=== PATIENT | male | born 1995 | race Caucasian/White ===

== ENCOUNTER 2024-03-20 15:08 | Emergency (ER) | payer OTHER, SELFPAY ==
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
[2024-03-20 15:10] VITALS: BP 156/83; PULSE 61; RESP 18; TEMP 36.9; O2SAT 100; BMI 26.9
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
[2024-03-20 16:57] VITALS: BP 124/66; PULSE 52; RESP 18; TEMP 36.9; O2SAT 99
[2024-03-20 18:16] VITALS: BP 124/66; PULSE 52; RESP 18; TEMP 36.9; O2SAT 99
== END 2024-03-20 18:16 | disposition home or self-care (01) ==
PROVIDERS: Emergency Provider Emergency Medicine
DX: S20.212A Contusion of left front wall of thorax, initial encounter (principal); Y04.2XXA Assault by strike against or bumped into by another person, initial encounter; Y93.9 Activity, unspecified; Y92.9 Unspecified place or not applicable; Y99.9 Unspecified external cause status
CPT/HCPCS: 71101; 99282; 99283

== ENCOUNTER 2024-11-02 12:48 | Emergency (ER) | payer OTHER, SELFPAY ==
--- NOTE | ~2024-11-02 | CT_ITS ---
CLINICAL HISTORY: painless mass to anterior L neck CT soft tissue neck with contrast Comparison: None Findings: The visualized intracranial contents are unremarkable. No prevertebral fluid. Epiglottis is within normal limits. Pharyngeal mucosal space and parapharyngeal fat are normal. Salivary glands are within normal limits. No sialoliths. Large left thyroid lobe nodule measuring 4.0 x 3.8 x 3.5 cm. Right thyroid gland is within normal limits. No consolidation at the lung apices. No acute fracture or dislocation. IMPRESSION: 1. Large left thyroid nodule measuring 4.0 x 3.8 x 3.5 cm. 2. No acute findings. This document has been electronically signed by: Remedios Romano MD on 11/02/2024 20:54:31
--- NOTE | 2024-11-02 12:58 | ED_ITS ---
HPI - General Adult General Chief complaint: Skin/Abscess/Foreign Body Stated complaint: swelling in neck Time Seen by Provider: 11/02/24 19:11 Source: patient Mode of arrival: ambulatory Limitations: no limitations History of Present Illness ED Provider: TRACIE KNOWLES PA-C HPI narrative: 29 year old male with pmhx significant for depression presents to the ED today for evaluation of mass to left neck x1 week. Patient states that 1 week ago he was shaving when he felt a gold ball sized mass to the lower left neck. Denies any pain. Reports some discomfort with swallowing. Denies difficulty or pain with swallowing. Reports that the mass has somewhat decreased in size however still present, prompting him to come to the ED for further evaluation. Denies fever, chills, sore throat, cough, N/V, shortness of breath, dental pain. Denies any tobacco use or vaping. Denies history of GERD. Satya any recent sick contacts. Patient does admit to history of 3 mm pulmonary nodules a few years ago. He has not followed up regarding this. Related Data Previous Rx's ?Medication ?Instructions ?Recorded naproxen 500 mg tablet 500 mg PO BID PRN pain 7 days #14 03/20/24 tabs Allergies Allergy/AdvReac Type Severity Reaction Status Date / Time No Known Allergies Allergy Verified 11/02/24 13:02 Review of Systems 2 Review of Systems: Constitutional: No fever, chills, fatigue, night sweats, weight changes ENT/Mouth: No ear pain, hearing loss, nasal congestion, sinus pain, rhinorrhea, sore throat Eyes: No eye pain, swelling, redness, vision changes, discharge Cardio: No chest pain, palpitations, BROCK, orthopnea, peripheral edema Pulm: No SOB, cough, sputum, wheezing, dyspnea, hemoptysis GI: No nausea, vomiting, hematemesis, abdominal pain, diarrhea, constipation, hematochezia, melena : No irregular bleeding, dysuria, frequency, urgency, hesitancy, hematuria, flank pain, urinary flow changes, urinary incontinence or retention MSK: No back pain, neck pain, joint pain, myalgias Skin: No lesions, rashes, +neck mass Neuro: No weakness, numbness, paresthesias, LOC, dizziness, headache Psych: No anxiety/panic, depression, SI/HI, AH/VH All other systems reviewed and are negative. [facility] Past Medical History Attestation statement: The following information was validated with the patient. Source: old records reviewed and nursing notes reviewed Physical Exam ED Vital Signs: Vital Signs - 24 hr 11/02/24 12:59 11/02/24 18:41 11/02/24 21:23 Temperature 98.1 F 97.6 F 97.8 F Pulse Rate 79 64 63 Respiratory Rate 18 18 18 Blood Pressure 147/58 H 147/67 H 125/78 Pulse Oximetry 98 98 100 Oxygen Delivery Method Room Air Room Air Room Air 11/02/24 21:23 Temperature 97.8 F Pulse Rate 63 Respiratory Rate 18 Blood Pressure 125/78 Pulse Oximetry 100 Oxygen Delivery Method Room Air BMI result Body Mass Index 27.0 hypertensive General: Well appearing, in no acute distress. Skin: Warm, dry, intact. No rashes or lesions. Head: Normocephalic, atraumatic. EENT: Hearing is intact b/l. Conjunctiva clear. Sclera is anicteric. PERRLA. EOM intact. Moist mucous membranes.? Neck: palpable hard lump to L neck. Nontender. No fluctuance/induration or overlying erythema. Airway patent. Cardiac: Chest wall symmetric. RRR Lungs: Normal respiratory effort without accessory muscle use. CTA bilaterally. Ext: Upper and lower extremities atraumatic, without tenderness, deformity, swelling or erythema Neuro: AOx3. Normal speech. Ambulating with steady gait. Course Course Course Narrative: This is a Rapid Medical Exam performed in triage by Erin Rojas PA-C. Full HPI, ROS and PE to be performed by primary ED provider. 29 yo M presenting to the ED c/o L sided neck swelling x last week - golf ball sized - unchanged. denies SOB, difficulty/inability to swallow, fever PE: +palpable hard lump to L neck. Nontender. No fluctuance/induration or overlying erythema Plan: Labs Reevaluation(s) Reevaluation #1: CBC without leukocytosis or left shift. No anemia. H&H stable. Inflammatory markers WNL. Chemistry without acute electrolyte abnormality requiring intervention. No NANDA. Liver function at baseline. Negative strep and mono. CT soft tissues neck showing large left thyroid nodule measuring 4 x 3.8 x 3.5 cm. No sialolith. No prevertebral fluid. Epiglottis normal. Normal pharyngeal mucosal space and parapharyngeal fat. > discussed workup results with patient. His airways patent. He is asymptomatic. I do not have concern for airway compromise. I recommended follow up with endocrinology v ENT. Stressed the importance of further testing with US outpatient as he may require biopsy v surgical removal. He verbalizes understanding. Referrals provided. He has an appointment with his PCP on the of this month (in 11 days). Advised to keep this appointment. Patient has remained stable throughout ED visit today. Discussed worrisome signs and symptoms and when to return to the ED. All questions answered at this time. Patient is agreeable with disposition and stable for discharge. Medications Administered Discontinued Medications Generic Name Dose Route Start Last Admin Trade Name Freq PRN Reason Stop Dose Admin Iohexol 100 ml 11/02/24 20:04 11/02/24 20:05 Iohexol 350 Mg/Ml 100 Ml Infus..Btl IV 11/02/24 20:05 60 ml ONCE ONE Administration Medical Decision Making Medical Decision Making [facility] Narrative: 29 year old male with pmhx significant for depression presents to the ED today for evaluation of mass to left neck x1 week. Differential diagnosis includes lipoma, soft tissue mass, lymphadenopathy, mono, strep throat, thyroid nodule. Lower suspicion for abscess, folliculitis. Unlikely GLASS CUT OFF TENDER, retropharyngeal abscess. Screening labs and strep swab obtained from triage. Will add on mono spot and CT soft tissues neck to further assess area. He denies any pain at present. Well appearing. Differential Diagnosis Differential Diagnoses: The differential diagnosis associated with the presentation includes as above. Admission/Observation not indicated. Lab Data [facility] Lab Attestation statement: I reviewed the patient's lab results. as above. 11/02/24 13:45 11/02/24 13:45 Labs: Lab Results 11/02/24 11/02/24 Range/Units 13:45 19:45 WBC 5.7 (4.8-10.8) X10*3/uL RBC 5.51 (4.60-5.80) X10*6/uL Hgb 15.6 (14.0-18.0) g/dl Hct 45.1 (42.0-52.0) % MCV 81.9 (80.0-98.0) fL MCH 28.3 (27.0-33.0) pg MCHC 34.6 (31.0-36.0) g/dl RDW 12.0 (11.0-16.0) % Plt Count 233 (160-400) X10*3/uL MPV 9.3 L (9.4-12.4) fL Immature Gran % (Auto) 0.2 (0.0-0.4) % Neut % (Auto) 61.1 (45-73) % Lymph % (Auto) 30.2 (20-40) % [place] % (Auto) 5.5 (2-11) % Eos % (Auto) 2.5 (0-4) % Baso % (Auto) 0.5 (0-2) % Lymph # (Auto) 1.7 (1.2-4.9) X10*3/uL [place] # (Auto) 0.3 (0.1-1.2) X10*3/uL Eos # (Auto) 0.1 (0.0-0.4) X10*3/uL Baso # (Auto) 0.0 (0.0-0.2) X10*3/uL Abs Immat Gran (auto) 0.01 (0.00-0.03) X10*3/uL Absolute Neuts (auto) 3.5 (2.0-8.3) x10*3/uL Absolute Nucleated RBC 0.000 (0.0-0.012) X10*3/uL Nucleated RBC % (auto) 0.0 (0.0-0.2) /100WBC ESR 2 (0-15) MM/HR Sodium 145 (135-145) mmol/L Potassium 3.9 (3.3-5.1) mmol/L Chloride 106 (96-108) mmol/L Carbon Dioxide 30 H (22-29) mmol/L Anion Gap 13 (12-20) BUN 12 (9-16) mg/dL Creatinine 0.83 (0.5-1.4) mg/dL Estim Creat Clear Calc 168.4 Estimated GFR > 60 Random Glucose 93 (60-115) mg/dL Calcium 10.4 H (8.4-10.2) mg/dL Total Bilirubin 0.7 (0.0-1.0) mg/dL Direct Bilirubin 0.2 (0.0-0.5) mg/dL AST 20 (5-37) U/L ALT 31 (0-40) U/L Alkaline Phosphatase 82 (39-117) U/L C-Reactive Protein 0.15 (< or = 0.50) mg/dL Total Protein 7.7 (6.5-8.0) g/dL Albumin 5.2 H (3.5-5.0) g/dL TSH 1.76 (0.32-4.0) uIU/mL Monoscreen Negative (Negative) S. pyogenes GrpA MARLON Negative (Negative) Independent Interpretation I performed an independent interpretation of an: CT Scan Interpretation: ct soft tissue neck showing nodule to L thyroid, no fluid collection Radiology Impression Discussion of test interpretation with radiology: I have reviewed the radiologist's reading. Radiologist Impression: Date of Service: 11/02/24 Procedure(s): CT soft tissue neck w IV con Accession Number(s): [id number] cc: Physician,Unknown ; Tracie Knowles~ Report Number: [id number]: Total DLP = 687.00 mGy-cm CLINICAL HISTORY: painless mass to anterior L neck CT soft tissue neck with contrast Comparison: None Findings: The visualized intracranial contents are unremarkable. No prevertebral fluid. Epiglottis is within normal limits. Pharyngeal mucosal space and parapharyngeal fat are normal. Salivary glands are within normal limits. No sialoliths. Large left thyroid lobe nodule measuring 4.0 x 3.8 x 3.5 cm. Right thyroid gland is within normal limits. No consolidation at the lung apices. No acute fracture or dislocation. IMPRESSION: 1. Large left thyroid nodule measuring 4.0 x 3.8 x 3.5 cm. 2. No acute findings. This document has been electronically signed by: Remedios Romano MD on 11/02/2024 20:54:31 External Record Review External record reviewed: Inpatient record Social Determinants Patient?s care significantly limited by Social Determinants of Health including: Other Social Determinant of Health Critical Care Time Critical Care Time Critical Care Time: No Discharge Plan Discharge Clinical Impression: Nodule of left lobe of thyroid gland Patient Disposition: Home, Self-Care Instructions: Thyroid Nodules (ED), Thyroid Scan and Uptake Test (DC) Additional Instructions: You were evaluated in the ED today for a mass to your left neck. Your blood work is reassuring. You tested negative for strep throat and mono. As discussed, the CT scan of your neck shows a large nodule to your left thyroid: The visualized intracranial contents are unremarkable. No prevertebral fluid. Epiglottis is within normal limits. Pharyngeal mucosal space and parapharyngeal fat are normal. Salivary glands are within normal limits. No sialoliths. Large left thyroid lobe nodule measuring 4.0 x 3.8 x 3.5 cm. Right thyroid gland is within normal limits. Please follow up with endocrinology and ENT. You have been provided with referrals for both. Call them to establish care. They will not call you. You will need further testing/imaging to further characterize this nodule. You may need to have the nodule biopsied or surgically removed. Keep your appointment with your primary care doctor on the . Call them on Monday morning to touch base regarding today's visit. Return with any new or worsening symptoms. In the case of an emergency call 911. Prescriptions: No Action naproxen 500 mg tablet 500 mg PO BID PRN (Reason: pain) 7 Days Qty: 14 0RF Referrals: [facility] [Provider Group] - 3 days (Large left thyroid lobe nodule measuring 4.0 x 3.8 x 3.5 cm.) [facility] [Provider Group] - 3 days (Large left thyroid lobe nodule measuring 4.0 x 3.8 x 3.5 cm.) Interventions: ED Discharge Assessment Last Done: 11/02/24 21:23 Discharge Date/Time: 11/02/24 21:23 Print Language: Armenian
[2024-11-02 12:59] VITALS: BP 147/58; PULSE 79; RESP 18; TEMP 36.7; O2SAT 98; BMI 27.0
[2024-11-02 13:51] LABS: Basophils Percent Auto 0.5 % (0-2); Eosinophils Absolute Auto 0.1 X10*3/uL (0.0-0.4); Eosinophils Percent Auto 2.5 % (0-4); Hematocrit 45.1 % (42.0-52.0); Hemoglobin 15.6 g/dl (14.0-18.0); Imm Gran Abs Auto 0.01 X10*3/uL (0.00-0.03); Imm Gran Pct Auto 0.2 % (0.0-0.4); Lymphocytes Absolute Auto 1.7 X10*3/uL (1.2-4.9); Lymphocytes Percent Auto 30.2 % (20-40); MANUAL DIFF FLAG NO; Mean Corpuscular HGB Conc 34.6 g/dl (31.0-36.0); Mean Corpuscular Hemoglobin 28.3 pg (27.0-33.0); Mean Corpuscular Volume 81.9 fL (80.0-98.0); Mean Platelet Volume 9.3 fL (9.4-12.4); Monocytes Absolute Auto 0.3 X10*3/uL (0.1-1.2); Monocytes Percent Auto 5.5 % (2-11); Neutrophils Absolute Auto 3.5 x10*3/uL (2.0-8.3); Neutrophils Percent Auto 61.1 % (45-73); Platelet Count 233 X10*3/uL (160-400); Red Blood Count 5.51 X10*6/uL (4.60-5.80); White Blood Count 5.7 X10*3/uL (4.8-10.8)
[2024-11-02 14:11] LABS: IDNOW Serial# 55D5AD1C; Strep A Nucleic Acid Negative (Negative)
[2024-11-02 14:12] LABS: Alanine Aminotransferase 31 U/L (0-40); Albumin Level 5.2 g/dL (3.5-5.0); Anion Gap 13 (12-20); Aspartate Amino Transferase 20 U/L (5-37); Bilirubin Direct 0.2 mg/dL (0.0-0.5); Bilirubin Total 0.7 mg/dL (0.0-1.0); Blood Urea Nitrogen 12 mg/dL (9-16); C Reactive Protein 0.15 mg/dL (< or = 0.50); Calcium 10.4 mg/dL (8.4-10.2); Carbon Dioxide 30 mmol/L (22-29); Chloride 106 mmol/L (96-108); Creatinine Clr Calc Pharmacy 168.4; Estimated Glomerular Filt Rate > 60; Glucose Random 93 mg/dL (60-115); Potassium 3.9 mmol/L (3.3-5.1); Sodium 145 mmol/L (135-145); Total Protein 7.7 g/dL (6.5-8.0)
[2024-11-02 14:26] LABS: TSH reflex Free T4 1.76 uIU/mL (0.32-4.0)
[2024-11-02 14:36] LABS: Erythrocyte Sedimentation Rate 2 MM/HR (0-15)
[2024-11-02 18:41] VITALS: BP 147/67; PULSE 64; RESP 18; TEMP 36.4; O2SAT 98
[2024-11-02 18:47] LABS: Alkaline Phosphatase 82 U/L (39-117)
--- OUTSIDE RECORDS SUMMARY | 2024-11-02 19:21 | XMS_ITS | Clinical Summary ---
Author Organization [facility] Address [address] [place] [address] Care Team Providers Care Information Systems Specialist Name Role Phone Pcp, No Primary Care Provider Unavailabl e Allergies No known active allergies Medications busPIRone (BUSPAR) 5 MG tablet 1 tablet by Mouth/Oral Cavity route every 12 hours. 06/15/2024 Active buPROPion (WELLBUTRIN XL) 150 MG 24 hr tablet 06/14/2024 Active fluticasone (FloNASE) 50 mcg/spray nasal sprayIndication s:Acute bacterial sinusitis 1 spray into each nostril daily. 1 each 06/28/2024 Active Social History Tobacco Use Types Packs/Day Years Used Date Smoking Tobacco: Never Smokeless Tobacco: Never Sex and Gender Information Value Date Recorded Sex Assigned at Male 06/28/2024 5:20 PM EST Legal Sex Male 5:18 PM EST Gender Identity Male 06/28/2024 5:20 PM EST Sexual Orientation Heterosexual (straight) 06/28 5:20 PM EST Last Filed Vital Signs Vital Sign Reading Time Taken Comments Blood Pressure 152/83 06/28/2024 5:30 PM EST Pulse 60 06/28/2024 5:30 PM EST Temperature 36.8 ??C (98.3 ??F) 06/28/2024 5:30 PM ES T Respiratory Rate 17 06/28/2024 5:30 PM EST Oxygen Saturation 98% 06/28/2024 5:30 PM EST Inhaled Oxygen Concentration - - Weight - - Height - - Body Mass Index - - Plan of Treatment Health Maintenance Due Date Last Done Comments Hepatitis C Virus Screening 1997 HIV Screening 2010 DTaP/Tdap/Td Vaccines (1 - Tdap) 2016 Hepatitis B Vaccines (1 of 3 - 19+ 3-dose series) 2016 COVID-19 Vaccine (2023-2 5 season) 2024 Influenza Vaccine 12/27/2024 HPV Vaccines Aged Out No longer eligi ble based on patient's age to complete this topic Pneumococcal Vaccine: Pediat luiza (0-5 Years) and At-Risk Patients (6 to 49 Years) Aged Out No longer eligible b ased on patient's age to complete this topic Insurance [facility] Care Teams Information Systems Specialist Relationship Specialty Start Date End Date Pcp, No PCP - General General Medicine 06/28/24
[2024-11-02 20:00] LABS: Monotest Negative (Negative)
--- NOTE | 2024-11-02 20:00 | PC.NURSE ---
a&ox4. vss and up to date. pt presents to the ED after noticing a large palpable mass to the left lower neck/near trachea while shaving x 1 week ago. pt reports difficulty swallowing at times but otherwise denies pain/is asymptomatic. denies recent fevers/chills/respiratory distress. pt on RA w/o difficulty. no airway compromise noted. managing secretions w/o difficulty. no sob/wob noted. respirations even/unlabored. 20gIV placed in the right AC - labs obtained/sent to lab. pt waiting for CT to be completed. plan of care ongoing. call mckeon placed within reach.
[2024-11-02] MEDS: iohexoL 350 MG/ML 100 ML INFUS..BTL IV (20:05)
--- NOTE | 2024-11-02 20:15 | PC.NURSE ---
patient to CT at this time.
[2024-11-02 21:23] VITALS: BP 125/78; PULSE 63; RESP 18; TEMP 36.6; O2SAT 100
== END 2024-11-02 21:23 | disposition home or self-care (01) ==
PROVIDERS: Physician Assistant; Physician Assistant Medical; Emergency Provider Emergency Medicine
DX: E04.1 Nontoxic single thyroid nodule (principal); R22.1 Localized swelling, mass and lump, neck
CPT/HCPCS: 36415; 70491; 80048; 80076; 84443; 85025; 85652; 86140; 86308; 87651; 99284; Q9967

== ENCOUNTER → 2024-11-02 19:32 | Outpatient (BNV) | payer OTHER, SELFPAY | PROVIDERS: Emergency Provider Emergency Medicine; Visit Provider Radiology Diagnostic Radiology | DX: E04.9 Nontoxic goiter, unspecified (principal) | CPT/HCPCS: 70491 ==

== ENCOUNTER 2024-11-13 13:22 | Outpatient (AMB) | payer OTHER, SELFPAY ==
[2024-11-13 13:24] VITALS: BP 122/68; PULSE 67; O2SAT 98; BMI 26.6
--- NOTE | 2024-11-13 13:24 | A.OFFVIS_ITS ---
Vital Signs 11/13/24 13:24 Height 6 ft 5 in Weight 224 lb 6.889 oz BMI 26.6 BP 122/68 Blood Pressure Location Lt brachial Position Sitting Pulse 67 Pulse Source Pulse Oximeter Pulse Oximetry (%) 98 Oxygen Delivery Method Room Air Intake Visit Reasons: Large left thyroid nodule Intake Note: Patient present today for Large left thyroid nodule. Backup Operator Required: No Accompanied by: Self / Same As Patient Allergies No Known Allergies Allergy (Verified 11/13/24 13:27) Medication List - Last Reconciled 11/13/24 by Nevin Ellis MD buspirone 5 mg PO BID HPI Comments Details: 29-year-old male coming in today for initial evaluation of large left-sided thyroid nodule. Past medical history otherwise significant for depression. On 11/02/2024, he presented to the ED after he palpate with a golf ball-sized mass to left lower neck. No pain. No fevers chills sore throat. He noticed it the week before and thought it might go down. Normal TSH 1.76 from 11/02/2024. CT soft tissue neck 11/02/2024 showed a large left-sided thyroid nodule measuring 4 X3.8 X3.5 cm. No mass effect. I reviewed the images myself which do show this is going substernally. Patient currently denies heat or cold intolerance, diarrhea or constipation, hair loss, palpitation, anxiety, weight changes, mood changes, changes in appearance of eyes or vision changes, tremors, increased diaphoresis or dry skin. Reports low energy ? Patient denies any difficulty swallowing, pain on swallowing or voice changes or difficulty breathing.Does feel a fullness/pressure sensation in the neck. Patient denies any history of childhood neck radiation. Denies having ever used lithium, amiodarone or biotin supplements. Patient denies any family history of thyroid cancer or thyroid disease. 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 [employer] Past medical history Lung nodules Depression Past surgical history Cholecystectomy Physical exam General: sitting comfortably in no acute distress HEENT: normocephalic/atraumatic Neck: supple, palpable 3 cm left-sided nodule Cardiac: normal heart sounds Pulm: normal breath sounds B/L, no added breath sounds Abd: not distended, no tenderness Extremities: no edema, no signs of myxedema Neuro: AAO x3, Speech: normal, no facial droop, moving all 4 extremities Laboratory Tests 11/02/24 13:45 TSH 1.76 [facility] Medical History (Updated 11/13/24 @ 14:02 by Nevin Ellis MD) Thyroid nodule greater than or equal to 1.5 cm in diameter incidentally noted on imaging study Physical Exam Vital Signs: Last Vital Signs Pulse 67 11/13/24 13:24 BP 122/68 11/13/24 13:24 Pulse Ox 98 11/13/24 13:24 Oxygen Delivery Method Room Air 11/13/24 13:24 BMI result Body Mass Index 26.6 Assessment & Plan Assessment & Plan (1) Thyroid nodule greater than or equal to 1.5 cm in diameter incidentally noted on imaging study: Code(s): E04.1 - Nontoxic single thyroid nodule Category: Medical Plan: 29-year-old male with no family history of thyroid cancer, with no personal history of head or neck radiation, coming in today for initial evaluation of large left-sided thyroid nodule. I will your in October 2024, he palpated the nodule himself and then on 11/02/2024 reported to the ED for further evaluation, we are on CT imaging he was found to have a large left-sided 4 cm nodule, CT soft tissue neck 11/02/2024 showed a large left-sided thyroid nodule measuring 4 X3.8 X3.5 cm. No mass effect. I reviewed the images myself which do show this is going substernally. Given young age plus size of the nodule, I would recommend surgical evaluation for left lobectomy. Prior to that we will obtain a thyroid nodule biopsy. Patient also needs a dedicated thyroid ultrasound. I explained that it is common to have thyroid nodules. About 95% of the time these nodules are benign. However if the nodule is > 1 cm in size or suspicious on ultrasound then a fine need aspiration biopsy is recommended. We discussed that a FNAB involves 4-5 passes with a small gauge needle and material obtained is sent off for cytology.If the cytopathology is benign then the nodule will be followed annually with repeat ultrasounds. However if it is suspicious or malignant, we will need to discuss further management. Indeterminate cytology can be further investigated with repeat FNA, genetic testing or empiric lobectomy. Malignant cytology is managed with either lobectomy or total thyroidectomy. We discussed briefly that thyroid cancer is, in most patients, an indolent disease that does not affect mortality. I did explain to him that once nodules are greater than 4 cm in size, the yield of a biopsy even when it is benign is not as accurate and we would recommend surgical evaluation. We will arrange for FNA of the left mid 4 cm nodule at next available opening and patient will follow up with me in clinic thereafter for results and further decision making. He will also obtain a thyroid ultrasound in the meantime. We discussed signs of airway compression and need to go to the ED in that case. Otherwise he does not have any compressive symptoms except some pressure sensation in the neck. Normal TSH from October 2024. Plan: -ordered ultrasound of the thyroid to be done as soon as possible -scheduled for FNA of the left mid 4 cm nodule and a follow up 2 weeks after to discuss results. Plan I spent 45 minutes in reviewing the record, seeing the patient and documenting in the medical record. Orders: Orders US biopsy thyroid Today E04.1 - Nontoxic single thyroid nodule US thyroid Today E04.1 - Nontoxic single thyroid nodule Patient Instructions: Do ultrasound thyroid Biopsy planned for 27 november but please let us know if needs to be moved to later if ultrasound not done Coding Level of Care Code New Pt Level 4 (62780) Diagnoses Thyroid nodule greater than or equal to 1.5 cm in diameter incidentally noted on imaging study E04.1 Time Spent (min) 45
--- OUTSIDE RECORDS SUMMARY | 2024-11-13 15:15 | XMS_ITS | Clinical Summary ---
Author Organization [facility] Address [address] [place] [address] Care Team Providers Care Well Logger Name Role Phone Pcp, No Primary Care [...] 60 06/28/2024 5:30 PM EST Temperature 36.8 C (98.3 F) 06/28/2024 5:30 PM EST Respiratory Rate 17 06/28/2024 5:30 PM EST [...] - 19+ 3-dose series) 2016 COVID-19 Vaccine (1 - 2024-2 5 season) 2024 Influenza Vaccine 12/27/2024 HPV Vaccines Aged Out No longer eligi ble based on patient's age to complete this topic Pneumococcal Vaccine: Pediat luiza (0-5 Years) and At-Risk Patients (6 to 49 Years) Aged Out No longer eligible b ased on patient's age to complete this topic Insurance [facility] [place] [id number] Care Teams Well Logger Relationship Specialty Start Date End Date Pcp, No PCP - General General Medicine 06/28/24
== END 2024-11-13 14:08 | disposition home or self-care (01) ==
LOC: HO.ENCR 13:22
PROVIDERS: Visit Provider Student in an Organized Health Care Education/Training Program
DX: E04.1 Nontoxic single thyroid nodule (principal)
CPT/HCPCS: 99204

== ENCOUNTER → 2024-11-13 13:22 | Outpatient (BNVA) | payer OTHER, SELFPAY | PROVIDERS: Visit Provider Student in an Organized Health Care Education/Training Program ==

== ENCOUNTER 2024-11-18 07:19 | Outpatient (REF) | payer OTHER, SELFPAY ==
--- NOTE | ~2024-11-18 | US_ITS ---
EXAMINATION: US THYROID HISTORY: E04.1 - Nontoxic single thyroid nodule TECHNIQUE: Real-time grayscale ultrasound imaging was performed and images were reviewed. COMPARISON: Correlation is made with a CT of the neck with contrast dated 11/02/2024. FINDINGS: SIZE: The right thyroid lobe measures 5.6 x 1.2 x 1.7 cm. The left thyroid lobe measures 6.3 x 2.9 x 3.3 cm. The isthmus measures 6 mm. FLOW: Flow to the gland is normal. ECHOGENICITY: The echotexture of the gland is homogeneous. NODULES: There is a single nodule identified with imaging characteristics as described below: Nodule #: 1 Location: Mid to lower pole of the left thyroid lobe measuring 3.8 x 2.8 x 3.9 cm. Shape: Wider than tall (0 points) Margins: Smooth (0 points) Echotexture: Hyperechoic (1 point) Composition: Mostly solid (2 points) Calcifications: None (0 points) Total points: 3 TIRADS: TR3: Mildly suspicious. US/US thyroid IMPRESSION: 3.8 x 2.8 x 3.9 cm mildly suspicious nodule at the mid to lower pole of the left thyroid lobe. According to ACR TI-RADS guidelines below, ultrasound-guided fine-needle aspiration is recommended. ACR TI-RADS Guidelines TR1 (0 points): Benign, No follow-up or biopsy required TR2 (2 points): Not Suspicious, No biopsy or follow up indicated TR3 (3 points): Mildly Suspicious, FNA if >= 2.5 cm, Follow if >= 1.5 cm TR4 (4-6 points): Moderately Suspicious, FNA if >= 1.5 cm, Follow if >= 1.0 cm TR5 (>=7 points): Highly Suspicious, FNA if >= 1.0 cm, Follow if >= 0.5 cm Electronically signed by: Alessandro Pride MD 11/18/2024 08:52 AM EDT
--- OUTSIDE RECORDS SUMMARY | 2024-11-18 07:22 | XMS_ITS | Clinical Summary ---
Author Organization [facility] Address [address] [place] [address] Care Team Providers Care Consultative Sales Associate Name Role Phone Pcp, No Primary Care [...] topic Insurance [facility] Care Teams Consultative Sales Associate Relationship Specialty Start Date End Date Pcp, No PCP - General General Medicine 06/28/24
== END 2024-11-18 07:20 | disposition home or self-care (01) ==
LOC: HO.US 07:19
PROVIDERS: PCP Nurse Practitioner Family; Visit Provider Student in an Organized Health Care Education/Training Program
DX: E04.1 Nontoxic single thyroid nodule (principal)
CPT/HCPCS: 76536

== ENCOUNTER → 2024-11-18 07:21 | Outpatient (BNV) | payer OTHER, SELFPAY | PROVIDERS: PCP Nurse Practitioner Family; Visit Provider Radiology Diagnostic Radiology | DX: E04.1 Nontoxic single thyroid nodule (principal) | CPT/HCPCS: 76536 ==

== ENCOUNTER 2024-11-27 07:49 | Outpatient (REF) | payer OTHER, SELFPAY ==
--- OUTSIDE RECORDS SUMMARY | 2024-11-27 07:52 | XMS_ITS ---
Author Name [facility] Organization Unknown History of Medication Use Medication Directions Dispensed Refills Start Date End Date Stat us amoxicillin-clavulana te (AUGMENTIN) 875-125 MG per tablet Take 1 tablet by mouth 2 (two) times a day. 06/28/2024 active fluticasone (FloNASE) 50 mcg/spray nasal spray 1 spray into each nostril daily. 06/28/2024 active busPIRone (BUSPAR) 5 MG tablet 1 tablet by Mouth/Oral Cavity route every 12 hours. 06/15/2024 active buPROPion (WELLBUTRIN XL) 150 MG 24 hr tablet 06/14/2024 active Problems Problem Status Onset Date Problem Type Date of Resoluti on Source Acute bacterial sinusitis active EncounterDiagnosisAct CCT Encounters Encounter Type Encounter Reason Primary Diagnosis Location Date Amb[place]usitis [place]us[place] Care Team Organization Name Specialty Phone Email Start Date End [facility] [employer] 07/16/2024 08/14/2024 [place] 06/29/[place]24
--- OUTSIDE RECORDS SUMMARY | 2024-11-27 07:52 | XMS_ITS | Clinical Summary ---
Author Organization [facility] Address [address] [place] [address] Care Team Providers Care Felt Hat Inspector And Packer Name Role Phone Pcp, No Primary Care [...] patient's age to complete this topic Insurance [facility] Care Teams Felt Hat Inspector And Packer Relationship Specialty Start Date End Date Pcp, No PCP - General General Medicine 06/28/24
--- NOTE | 2024-11-27 08:35 | PM.PROC ---
Brief Operative Note Date of procedure: 11/27/24 Pre-op diagnosis: left mid pole 3.9 cm thyroid nodule FNA biopsy Post-op diagnosis: same Procedure: THYROID FINE NEEDLE ASPIRATION PROCEDURE NOTE ? PROCEDURE PERFORMED: Ultrasound-guided FNA of thyroid nodule ? OPERATORS: Dr. Nevin Ellis ? INDICATION: left mid pole 3.9 cm thyroid nodule FNA biopsy ; FNA performed to assess for malignancy ? DESCRIPTION OF PROCEDURE: The indications for FNA (to assess for malignancy) were reviewed with the patient in detail. Potential complications (e.g., bleeding, infection, damage to local structures, absence of clear diagnosis after FNA) were reviewed. Alternatives to FNA including conservative observation or surgery were described. The patient understood and agreed to proceed. This was documented by the signing of the written informed consent form. A time-out was performed to confirm the patient's identity and the site of planned FNA. The nodule of interest was identified using ultrasound (14 MHz linear array probe). The site of FNA was then draped in the usual fashion and carefully cleaned and prepared using alcohol swabs. The skin at the previously-identified site of needle insertion was iced and sprayed with numbing spray. Under ultrasound guidance, _5_ passes were performed using a 1.5-inch, 25-gauge needle, and sample was obtained via capillary action. The needle tip was clearly visualized to be within the nodule at the time of sampling for _5_ of _5_ passes The patient tolerated the procedure well. There were no immediate complications. A small adhesive bandage was applied, and the patient was advised to take acetaminophen (rather than NSAIDs) for any discomfort and to report any signs of inflammation/infection or marked swelling. IMPRESSION: Technically successful ultrasound-guided fine needle aspiration of left mid pole 3.9 cm thyroid nodule . PLAN: The patient was advised that I will provide follow-up regarding the cytology result and any subsequent plans. Nevin Ellis MD Endocrinology Attending Condition: stable Disposition: same day
== END 2024-11-27 07:50 | disposition home or self-care (01) ==
LOC: HO.US 07:49
PROVIDERS: PCP Nurse Practitioner Family; Visit Provider Student in an Organized Health Care Education/Training Program
DX: E04.1 Nontoxic single thyroid nodule (principal)
CPT/HCPCS: 10005; 88173; 88305

== ENCOUNTER → 2024-11-27 07:49 | Outpatient (BNV) | payer OTHER, SELFPAY | PROVIDERS: PCP Nurse Practitioner Family; Visit Provider Student in an Organized Health Care Education/Training Program | DX: E04.1 Nontoxic single thyroid nodule (principal) | CPT/HCPCS: 10005 ==

== ENCOUNTER 2024-12-08 17:02 | Emergency (ER) | payer OTHER, SELFPAY ==
--- NOTE | ~2024-12-08 | XR_ITS ---
CLINICAL HISTORY: weakness 2 view chest x-ray Comparison: None provided Findings: The lungs are clear. Normal size heart. No acute fracture. IMPRESSION: 1. No acute findings. This document has been electronically signed by: Gagan Tobar MD on 12/08/2024 18:08:05
--- NOTE | ~2024-12-08 | CT_ITS ---
CLINICAL HISTORY: RLQ pain and tenderness CT abdomen and pelvis with contrast Comparison: None provided Findings: 2 mm nodule right lower lobe. Given age, Fleischner criteria does not apply. Hepatomegaly with steatosis Splenomegaly. No urolithiasis. Mildly diffuse small bowel mural thickening can be seen with enteritis. No bowel obstruction. Prominent inguinal nodes, may be reactive. Normal appendix. Scattered colonic diverticulosis without diverticulitis or colitis. No acute fracture. Small disc bulges post central disc protrusion at L4-L5. Spinal canal narrowing. Post cholecystectomy. IMPRESSION: Possible mildly diffuse enteritis. This document has been electronically signed by: Andrez Marmolejo MD on 12/08/2024 20:34:35
--- NOTE | 2024-12-08 17:09 | ECG_ITS ---
Test Reason : palpatations Blood Pressure : */* mmHG Vent. Rate : 102 BPM Atrial Rate : 102 BPM P-R Int : 136 ms QRS Dur : 94 ms QT Int : 328 ms P-R-T Axes : 35 55 21 degrees QTcB Int : 427 ms Sinus tachycardia Otherwise normal ECG No previous ECGs available Referred By: Generic ED Physician Electronically Signed By: HILLARY FREEDMAN
[2024-12-08 17:25] VITALS: BP 127/72; PULSE 99; RESP 16; TEMP 36.9; O2SAT 97; BMI 26.4
--- NOTE | 2024-12-08 17:29 | ED_ITS ---
HPI - General Adult General Chief complaint: General Medical Stated complaint: fever of 103 earlier, fluttering in chest Time Seen by Provider: 12/08/24 18:45 History of Present Illness ED Provider: Mariangel NOBLES narrative: The patient is a 29-year-old male who comes to the emergency room for evaluation of febrile illness that began yesterday. The patient was recently in [place]. He has been in [place] for over a week. He did hiking and other outdoor activities. Additionally the patient was recently found to have a thyroid nodule and he had a fine-needle aspirate of the thyroid 11 days ago. History evening the patient started to feel feverish. He also felt dizzy and fatigue. He had 1 episode of loose stools yesterday evening. He has had some nausea. He has not vomited. Today he continued to have fever and also chills. His temperature was as high as 103.8 degrees at home. He has not had any sore throat. He has not had any sense of swollen lymph nodes. No chest pain or shortness of breath. No significant cough. No dysuria. No testicular pain. The patient had a sexual encounter while in [place]. This involved oral sex but no penetrative sex. While in [place] the patient did not have any definite tick bites or other particular exposures while in the outdoors. Related Data Home Medications ?Medication ?Instructions ?Recorded ?Confirmed buspirone 5 mg tablet 5 mg PO BID 11/13/24 5 Previous Rx's ?Medication ?Instructions ?Recorded cefpodoxime 200 mg tablet 200 mg PO BID 10 days #20 ta bs 12/08/24 doxycycline monohydrate 100 mg 100 mg PO BID #20 tabs 12/08/24 tablet Allergies Allergy/AdvReac Type Severity Reaction Status Date / Time No Known Allergies Allergy Verified 12/08/24 17:27 Review of Systems 2 Review of Systems: Yes all other systems are reviewed and are negative [facility] Past Medical History Medical History (Updated 12/09/24 @ 00:00 by Martha Bob) Thyroid nodule greater than or equal to 1.5 cm in diameter incidentally noted on imaging study Social History Social History Smoked in Last 30 Days: No Use of substances other than those prescribed or required for medical reasons: No Advance Directives: No Advance Directives Information Provided: Yes Do you have a plan to hurt others: No Plan Physical Exam ED Vital Signs: Vital Signs - 24 hr 12/08/24 17:25 12/08/24 18:25 12/08/24 22:13 Temperature 98.4 F 97.5 F 97.5 F Pulse Rate 99 96 96 Respiratory Rate 16 18 18 Blood Pressure 127/72 113/62 113/62 Pulse Oximetry 97 97 97 Oxygen Delivery Method Room Air Room Air Room Air BMI result Body Mass Index 26.4 Const Other: The patient looks as though he is ordinarily healthy and robust 29-year-old. He looks mildly unwell. He does not appear toxic or critically ill. No respiratory difficulty. He does not appear uncomfortable. Orientation/consciousness: patient oriented x3 HENMT Other: The appearance of the face is unremarkable. The pharynx is normal. Tympanic membranes are normal bilaterally. Eyes Other: Pupils are round equal, conjunctivae are clear, extraocular movements intact General: appearance normal, both eyes and all related structures Neck Other: No cervical adenopathy. The neck is supple. No neck swelling. No swelling in the region of the thyroid. Resp Effort & Inspection: normal respiratory effort Auscultation: clear to auscultation bilaterally Cardio Other: No murmur Rate: regular rate Rhythm: regular rhythm Heart sounds: S1 normal heart sound present and S2 normal heart sound present GI Other: The abdomen was flat. He was tender in the right lower quadrant with some slight guarding. Other: The patient is an uncircumcised male. There is no penile discharge. No abnormality the penis or the scrotum. Testicles are nontender. Non swollen. Back/Spine/Pelvis Other: No CVA percussion tenderness Skin Other: The skin is dry and unremarkable General skin exam: no rashes or lesions noted Neuro General: patient oriented x3, gait normal, tone normal, moves all extremities, no focal motor deficits and CN's II-XI intact bilaterally Extrem Other: There is no calf swelling or tenderness. No asymmetry. No peripheral edema. Course Course Course Narrative: Medical screening exam performed. Please refer to detailed history, exam, evaluation, and management by primary provider. 29-year-old male, history of thyroid nodule, presents with generalized weakness, fatigue just returned from [place] yesterday. Fever T-max of 103.8? at home, receiving Tylenol and ibuprofen. Also requesting STI evaluation. Limited history at this time. Check labs, cxr. Reevaluation(s) Reevaluation #1: 12/09/24 1301 SON Lindsay Blood culture grew Gram-negative rods 2/2 sets. Contacted patient. States he feels ok however noticed an erythematous rash to the back of his leg that started yesterday. Advised to come back to the ED for further workup/repeat labs. He verbalizes understanding and will be coming to the ED later today. Medications Administered Discontinued Medications Generic Name Dose Route Start Last Admin Trade Name Camila PRN Reason Stop Dose Admin Ceftriaxone Sodium 2 gm 12/08/24 19:05 12/08/24 19:13 Ceftriaxone Sodium 2 Gm Vial IVPUSH 12/08/24 19:06 2 gm ONCE ONE Administration Doxycycline Monohydrate 100 mg 12/08/24 20:39 12/08/24 21:11 Doxycycline Monohydrate 100 Mg Capsule PO 12/08/24 20:40 100 mg ONCE ONE Administration Sodium Chloride 1,000 mls @ 999 mls/hr 12/08/24 19:15 12/08/24 20:14 Ns IV 12/08/24 20:15 Infused .Q1H1M TOM Infusion Lactated Ringer's 1,000 mls @ 999 mls/hr 12/08/24 20:45 12/08/24 21:12 Lr IV 12/08/24 21:45 999 mls/hr .Q1H1M TOM Administration Iohexol 85 ml 12/08/24 19:34 12/08/24 19:35 Iohexol 350 Mg/Ml 100 Ml Infus..Btl IV 12/08/24 19:35 85 ml ONCE ONE Administration Ketorolac Tromethamine 15 mg 12/08/24 20:34 12/08/24 21:11 Ketorolac Tromethamine 15 Mg/Ml Vial IVPUSH 12/08/24 20:35 15 mg ONCE ONE Administration Medical Decision Making Medical Decision Making [facility] Narrative: The patient is a previous daily a healthy 29-year-old who presents with high fevers of 1 day's duration. No clear source of fever is suggested by his history. On his physical exam he had significant right lower quadrant tenderness but his history is not really suggestive of appendicitis. Other diagnostic considerations include his recent travel to [place]. Additionally he had a a sexual encounter while in [place] with a person he did not know very well. Patient has a white blood count of 8.5 with 93% neutrophils. His CRP is 6.46. Urinalysis is unremarkable. Chest x-ray is unremarkable. CT scan of the abdomen and pelvis does not indicate any source of infection. Patient's lactate was elevated at 2.5 but I do not have a strong impression that the patient is frankly septic. The source of his fever is not clear. Blood cultures were obtained and he was given empiric antibiotics with IV ceftriaxone. However with hydration and ketorolac he seemed to feel much much better. Repeat lactate was normal. On the whole it is not clear whether this is a viral syndrome, a bacterial syndrome, or possibly some atypical syndrome such as a tick-borne illness or something related to the sexual encounter in [place]. I do not think he looks ill enough to require hospitalization. He will be started on empiric antibiotics of cefpodoxime and doxycycline. We will await blood cultures and other serology testing. He should contact his regular doctor's office for a follow-up appointment this week. He should return if worse. Lab Data 12/08/24 18:09 12/08/24 18:09 Labs: Lab Results 12/08/24 12/08/24 12/08/24 Range/Units 18:09 19:11 19:15 WBC 8.5 (4.8-10.8) X10*3/uL RBC 5.15 (4.60-5.80) X10*6/uL Hgb 15.0 (14.0-18.0) g/dl Hct 42.1 (42.0-52.0) % MCV 81.7 (80.0-98.0) fL MCH 29.1 (27.0-33.0) pg MCHC 35.6 (31.0-36.0) g/dl RDW 12.4 (11.0-16.0) % Plt Count 194 (160-400) X10*3/uL MPV 8.9 L (9.4-12.4) fL Immature Gran % (Auto) 0.4 (0.0-0.4) % Neut % (Auto) 93.4 H (45-73) % Lymph % (Auto) 3.3 L (20-40) % [place] % (Auto) 2.7 (2-11) % Eos % (Auto) 0.0 (0-4) % Baso % (Auto) 0.2 (0-2) % Lymph # (Auto) 0.3 L (1.2-4.9) X10*3/uL [place] # (Auto) 0.2 (0.1-1.2) X10*3/uL Eos # (Auto) 0.0 (0.0-0.4) X10*3/uL Baso # (Auto) 0.0 (0.0-0.2) X10*3/uL Abs Immat Gran (auto) 0.03 (0.00-0.03) X10*3/uL Absolute Neuts (auto) 7.9 (2.0-8.3) x10*3/uL Absolute Nucleated RBC 0.000 (0.0-0.012) X10*3/uL Nucleated RBC % (auto) 0.0 (0.0-0.2) /100WBC Smear Tech's Comments VERIFIED Sodium 137 (135-145) mmol/L Potassium 4.0 (3.3-5.1) mmol/L Chloride 102 (96-108) mmol/L Carbon Dioxide 24 (22-29) mmol/L Anion Gap 15 (12-20) BUN 8 L (9-16) mg/dL Creatinine 1.02 (0.5-1.4) mg/dL Estim Creat Clear Calc 137.0 Estimated GFR > 60 Random Glucose 157 H (60-115) mg/dL Lactic Acid 2.5 H* (0.5-2.0) mmol/L Lactic Acid F/U @ 2Hr (0.5-2.0) mmol/L Calcium 9.6 D (8.4-10.2) mg/dL Total Bilirubin 1.0 (0.0-1.0) mg/dL AST 23 (5-37) U/L ALT 27 (0-40) U/L Alkaline Phosphatase 71 (39-117) U/L Total Creatine Kinase 230 H (38-174) U/L C-Reactive Protein 6.46 H (< or = 0.50) mg/dL Total Protein 7.3 (6.5-8.0) g/dL Albumin 4.7 (3.5-5.0) g/dL Lipase 11 (8-78) U/L TSH 0.60 (0.32-4.0) uIU/mL Urine Color Yellow Urine Appearance Clear Urine pH 6.5 (5.0-9.0) Ur Specific [place] 1.010 (1.005-1.025) Urine Protein Negative (Neg-Trace) mg/dL Urine Glucose (UA) Negative (Negative) mg/dL Urine Ketones Negative (Negative) mg/dL Urine Blood Negative (Negative) Urine Nitrite Negative (Negative) Ur Leukocyte Esterase Negative (Negative) Ur N gonorrhoeae DNA (PCR) NOT DETECTED (Not Detect.) Salicylates < 5.0 L (15-30) mg/dL Urine Opiates Screen Not Detected (Not Detect) Ur Buprenorphine Scrn Not Detected (Not Detect) ng/mL Ur Oxycodone Screen Not Detected (Not Detect) ng/mL Urine Methadone Screen Not Detected (Not Detect) ng/mL Urine Fentanyl Screen Not Detected (Not Detect) Acetaminophen 5 (<30) mcg/mL Ur Barbiturates Screen Not Detected (Not Detect) Ur Phencyclidine Scrn Not Detected (Not Detect) Ur Amphetamines Screen Not Detected (Not Detect) U Benzodiazepines Scrn Not Detected (Not Detect) Urine Cocaine Screen Not Detected (Not Detect) U Marijuana (THC) Screen Not Detected (Not Detect) T.pallidum Ab (EIA) Nonreactive (Nonreactive) Ur Chlamydia DNA (PCR) NOT DETECTED (Not Detect.) Monoscreen Negative (Negative) HIV-1 RNA copies/mL Cancelled HIV-1 RNA logcopies/mL Cancelled HIV Genotype Cancelled Influenza Type A (PCR) NEGATIVE (Negative) Influenza Type B (PCR) NEGATIVE (Negative) RSV RNA Qual (PCR) NEGATIVE (Negative) SARS-CoV-2 RNA (RT-PCR) NEGATIVE (Negative) Cancelled Test SEE NOTE 12/08/24 Range/Units 20:27 WBC (4.8-10.8) X10*3/uL RBC (4.60-5.80) X10*6/uL Hgb (14.0-18.0) g/dl Hct (42.0-52.0) % MCV (80.0-98.0) fL MCH (27.0-33.0) pg MCHC (31.0-36.0) g/dl RDW (11.0-16.0) % Plt Count (160-400) X10*3/uL MPV (9.4-12.4) fL Immature Gran % (Auto) (0.0-0.4) % Neut % (Auto) (45-73) % Lymph % (Auto) (20-40) % [place] % (Auto) (2-11) % Eos % (Auto) (0-4) % Baso % (Auto) (0-2) % Lymph # (Auto) (1.2-4.9) X10*3/uL [place] # (Auto) (0.1-1.2) X10*3/uL Eos # (Auto) (0.0-0.4) X10*3/uL Baso # (Auto) (0.0-0.2) X10*3/uL Abs Immat Gran (auto) (0.00-0.03) X10*3/uL Absolute Neuts (auto) (2.0-8.3) x10*3/uL Absolute Nucleated RBC (0.0-0.012) X10*3/uL Nucleated RBC % (auto) (0.0-0.2) /100WBC Smear Tech's Comments Sodium (135-145) mmol/L Potassium (3.3-5.1) mmol/L Chloride (96-108) mmol/L Carbon Dioxide (22-29) mmol/L Anion Gap (12-20) BUN (9-16) mg/dL Creatinine (0.5-1.4) mg/dL Estim Creat Clear Calc Estimated GFR Random Glucose (60-115) mg/dL Lactic Acid (0.5-2.0) mmol/L Lactic Acid F/U @ 2Hr 1.5 (0.5-2.0) mmol/L Calcium (8.4-10.2) mg/dL Total Bilirubin (0.0-1.0) mg/dL AST (5-37) U/L ALT (0-40) U/L Alkaline Phosphatase (39-117) U/L Total Creatine Kinase (38-174) U/L C-Reactive Protein (< or = 0.50) mg/dL Total Protein (6.5-8.0) g/dL Albumin (3.5-5.0) g/dL Lipase (8-78) U/L TSH (0.32-4.0) uIU/mL Urine Color Urine Appearance Urine pH (5.0-9.0) Ur Specific [place] (1.005-1.025) Urine Protein (Neg-Trace) mg/dL Urine Glucose (UA) (Negative) mg/dL Urine Ketones (Negative) mg/dL Urine Blood (Negative) Urine Nitrite (Negative) Ur Leukocyte Esterase (Negative) Ur N gonorrhoeae DNA (PCR) (Not Detect.) Salicylates (15-30) mg/dL Urine Opiates Screen (Not Detect) Ur Buprenorphine Scrn (Not Detect) ng/mL Ur Oxycodone Screen (Not Detect) ng/mL Urine Methadone Screen (Not Detect) ng/mL Urine Fentanyl Screen (Not Detect) Acetaminophen (<30) mcg/mL Ur Barbiturates Screen (Not Detect) Ur Phencyclidine Scrn (Not Detect) Ur Amphetamines Screen (Not Detect) U Benzodiazepines Scrn (Not Detect) Urine Cocaine Screen (Not Detect) U Marijuana (THC) Screen (Not Detect) T.pallidum Ab (EIA) (Nonreactive) Ur Chlamydia DNA (PCR) (Not Detect.) Monoscreen (Negative) HIV-1 RNA copies/mL HIV-1 RNA logcopies/mL HIV Genotype Influenza Type A (PCR) (Negative) Influenza Type B (PCR) (Negative) RSV RNA Qual (PCR) (Negative) SARS-CoV-2 RNA (RT-PCR) (Negative) Cancelled Test Discharge Plan Discharge Clinical Impression: Acute febrile illness Patient Disposition: Home, Self-Care Additional Instructions: The reason for your fevers are not clear today. You has been started on empiric antibiotics. Prescriptions for antibiotics has been sent to your pharmacy. You have received antibiotics in the emergency room here this evening already. Please start these 2 antibiotics tomorrow morning when you pick them up from the pharmacy. Please take as prescribed. Additionally please contact your regular doctor's office tomorrow morning for a follow up appointment later this week. We have sent many tests to check for a number of different illnesses to explain your fever. You will need to follow up with your doctor for the results of these tests. However we will try to contact you if we have any definite results before you see your doctor. Use ibuprofen and acetaminophen as needed for discomfort and fever. Drink lot of fluids. If you feel that you are significantly worse please return to the emergency room for further evaluation. Prescriptions: New doxycycline monohydrate 100 mg tablet 100 mg PO BID Qty: 20 0RF cefpodoxime 200 mg tablet 200 mg PO BID 10 Days Qty: 20 0RF Rx Instructions: must administer with a meal/food No Action buspirone 5 mg tablet 5 mg PO BID Referrals: Sandra Holley, CHILD STUDY TEAM DIRECTOR [Primary Care Provider, Family Practice] Referral Note: Fever, source unclear Interventions: ED Discharge Assessment Last Done: 12/08/24 22:13 Discharge Date/Time: 12/08/24 22:13 Print Language: Danish
[2024-12-08 18:25] VITALS: BP 113/62; PULSE 96; RESP 18; TEMP 36.4; O2SAT 97
[2024-12-08 18:28] LABS: Hematocrit 42.1 % (42.0-52.0); Hemoglobin 15.0 g/dl (14.0-18.0); Imm Gran Abs Auto 0.03 X10*3/uL (0.00-0.03); Imm Gran Pct Auto 0.4 % (0.0-0.4); Lymphocytes Absolute Auto 0.3 X10*3/uL (1.2-4.9); MANUAL DIFF FLAG SCAN; Mean Corpuscular HGB Conc 35.6 g/dl (31.0-36.0); Mean Corpuscular Hemoglobin 29.1 pg (27.0-33.0); Mean Corpuscular Volume 81.7 fL (80.0-98.0); NRBC Abs Auto 0.000 X10*3/uL (0.0-0.012); NRBC Pct Auto 0.0 /100WBC (0.0-0.2); Platelet Count 194 X10*3/uL (160-400); Red Blood Count 5.15 X10*6/uL (4.60-5.80); SCAN SMEAR FLAG 1; White Blood Count 8.5 X10*3/uL (4.8-10.8)
[2024-12-08 18:38] LABS: Alanine Aminotransferase 27 U/L (0-40); Albumin Level 4.7 g/dL (3.5-5.0); Alkaline Phosphatase 71 U/L (39-117); Anion Gap 15 (12-20); Aspartate Amino Transferase 23 U/L (5-37); Blood Urea Nitrogen 8 mg/dL (9-16); Calcium 9.6 mg/dL (8.4-10.2); Carbon Dioxide 24 mmol/L (22-29); Chloride 102 mmol/L (96-108); Creatinine Clr Calc Pharmacy 137.0; Estimated Glomerular Filt Rate > 60; Lipase 11 U/L (8-78); Potassium 4.0 mmol/L (3.3-5.1); Sodium 137 mmol/L (135-145); Total Protein 7.3 g/dL (6.5-8.0)
[2024-12-08 18:39] LABS: Acetaminophen LAB 5 mcg/mL (<30); Salicylate < 5.0 mg/dL (15-30)
[2024-12-08 18:58] LABS: Resp Syncy Virus RNA Qual PCR NEGATIVE (Negative); SARS COV2 PCR INHOUSE NEGATIVE (Negative)
[2024-12-08 19:26] LABS: Appearance Urine Clear; Glucose Urine UA Negative (Negative); PH 6.5 (5.0-9.0); Specific Gravity - Urine 1.010 (1.005-1.025)
[2024-12-08] MEDS: iohexoL 350 MG/ML 100 ML INFUS..BTL 85 ML IV (19:35)
[2024-12-08 19:36] LABS: Cannabinoid Screen Urine Not Detected (Not Detect)
[2024-12-08 20:17] LABS: Reflex Lactate? Lactic Acid Added
[2024-12-08 20:46] LABS: ~Lactic Acid-LAB USE ONLY 1.5 mmol/L (0.5-2.0)
[2024-12-08] MEDS: Lactated Ringers 1,000 ML 999 ML IV (21:12)
[2024-12-08 22:13] VITALS: BP 113/62; PULSE 96; RESP 18; TEMP 36.4; O2SAT 97
[2024-12-09 03:29] LABS: Syphilis Screen Nonreactive (Nonreactive)
[2024-12-09 05:16] LABS: CT PCR Urine NOT DETECTED (Not Detect.); NG PCR Urine NOT DETECTED (Not Detect.)
[2024-12-10 23:29] LABS: Lyme Disease DNA PCR NOT DETECTED (NOT DETECTED)
== END 2024-12-08 22:13 | disposition home or self-care (01) ==
PROVIDERS: Physician Assistant; Emergency Provider Emergency Medicine; PCP Nurse Practitioner Family
DX: R50.9 Fever, unspecified (principal); I48.92 Unspecified atrial flutter; R10.31 Right lower quadrant pain; R42 Dizziness and giddiness; R11.0 Nausea; R10.2 Pelvic and perineal pain; R00.0 Tachycardia, unspecified; Z51.81 Encounter for therapeutic drug level monitoring; Z79.899 Other long term (current) drug therapy; Z03.818 Encounter for observation for suspected exposure to other biological agents ruled out
CPT/HCPCS: 36415; 71046; 74177; 80053; 80143; 80179; 80307; 81003; 82550; 83605; 83690; 84443; 85025; 86140; 86308; 86780; 87040; 87077; 87186; 87205; 87491; 87536; 87591; 87637; 87900; 93005; 96361; 96374; 96375; 99284; 99285; J0696; J1885; J7120; Q9967

== ENCOUNTER → 2024-12-08 17:09 | Outpatient (BNV) | payer OTHER, SELFPAY | PROVIDERS: Emergency Provider Emergency Medicine; PCP Nurse Practitioner Family; Visit Provider Internal Medicine | DX: R00.0 Tachycardia, unspecified (principal) | CPT/HCPCS: 93010 ==

== ENCOUNTER → 2024-12-08 17:38 | Outpatient (BNV) | payer OTHER, SELFPAY | PROVIDERS: Emergency Provider Emergency Medicine; PCP Nurse Practitioner Family; Visit Provider Radiology Diagnostic Radiology | DX: K52.89 Other specified noninfective gastroenteritis and colitis (principal); R53.1 Weakness | CPT/HCPCS: 71046; 74177 ==

== ENCOUNTER 2024-12-09 13:48 | Inpatient (IN) | payer OTHER, SELFPAY ==
[2024-12-09 14:02] VITALS: BP 128/71; PULSE 73; RESP 16; TEMP 36.8; O2SAT 98; BMI 26.7
--- NOTE | 2024-12-09 14:05 | ED.GENADULT ---
HPI - General Adult General Chief complaint: Recheck/Abnormal Lab/Rx Stated complaint: was called to return abnormal labs Time Seen by Provider: 12/09/24 14:18 Source: patient Mode of arrival: ambulatory Limitations: no limitations History of Present Illness ED Provider: Nataly Samuel PA-C HPI narrative: Patient is a 29 year old assigned male at with no reported medical history presenting to the emergency department today with a right lower leg rash and abnormal lab work. Patient states that he was seen here on 12/08/2024 for a fever of unknown origin. Patient states that he was in [place] for a week and just returned - he did partake in outdoor activities such as hiking. Patient states that he did have oral sex while on the trip but no penetrative sex. Patient states that this morning he woke up and found to burning rashes area to the back of his right lower leg. Patient states that he was called and informed he had positive blood cultures. Patient denies any dizziness, lightheadedness, abdominal pain, nausea, vomiting, chills, blurry vision, double vision, loss of vision, chest pain, difficulty breathing, shortness of breath, back pain, night sweats, pain with urination, increased urinary frequency, increased urinary urgency, blood in his urine or stool, syncope or a near syncopal episode, recent trauma or falls, bowel incontinence, bladder incontinence, or any other complaints at this time. Relieving factors: none Exacerbating factors: none Associated symptoms: fever/chills and rash Treatments prior to arrival: none Related Data Home Medications ?Medication ?Instructions ?Recorded ?Confirmed acetaminophen 650 mg 1,300 mg PO Q4H PRN Headache/Pain 12/09/24 12/09/24 tablet,extended release ascorbic acid (vitamin C) 250 mg 250 mg PO DAILY 12/09/24 12/09/24 tablet (Vitamin C) bupropion HCl 150 mg 24 hr tablet, 150 mg PO DAILY 12/09/24 12/09/24 extended release ibuprofen 200 mg tablet 400 mg PO Q6H PRN Headache/Pain 12/09/24 12/09/24 magnesium 250 mg tablet 250 mg PO DAILY 12/09/24 12/09/24 vitamin B complex 1 tab PO DAILY 12/09/24 12/09/24 zinc acetate 25 mg (zinc) capsule 25 mg PO DAILY 12/09/24 12/09/24 Allergies Allergy/AdvReac Type Severity Reaction Status Date / Time No Known Allergies Allergy Verified 12/09/24 14:07 Review of Systems Constitutional: Constitutional: Reports no additional constitutional complaints, Denies chills, Reports fever(s) and Denies night sweats Eyes: Eyes: Reports no additional eye complaints, Denies blurry vision, Denies change in vision, Denies diplopia, Denies eye discharge, Denies loss of vision and Denies eye pain ENT: Denies dizziness Cardiovascular: Cardiovascular: Reports no additional cardiovascular complaints, Denies chest pain, Denies lightheadedness, Denies Loss of Consciousness and Denies dyspnea Respiratory: Respiratory: Reports no additional respiratory complaints and Denies dyspnea Gastrointestinal: Gastrointestinal: Reports no additional gastrointestinal complaints, Denies abdominal pain, Denies melena, Denies hematochezia, Denies change in bowel habits and Denies change in stool character Genitourinary: Genitourinary: Reports no additional male genitourinary complaints, Denies hematuria, Denies oliguria, Denies difficulty urinating, Denies dysuria, Denies urinary frequency, Denies urinary hesitancy, Denies urinary incontinence and Denies urinary urgency Musculoskeletal: Musculoskeletal: Reports no additional musculoskeletal complaints, Denies numbness and Denies tingling Integumentary/Breasts: Comments: left lower leg rash Neurologic: Denies dizziness, Denies loss of vision, Denies numbness and Denies tingling Psychiatric: Psychiatric: Reports no additional psychiatric complaints Endocrine: Endocrine: Reports no additional endocrine complaints Hematologic/Lymphatic: Hematologic/Lymphatic: Reports no additional hematologic/lymphatic complaints Allergic/Immunologic: Allergic/Immunologic: Reports no additional allergic/immunologic complaints [facility] Past Medical History Attestation statement: The following information was validated with the patient. Source: old records reviewed and nursing notes reviewed Medical History Thyroid nodule greater than or equal to 1.5 cm in diameter incidentally noted on imaging study Social History Social History Advance Directives: No Advance Directives Information Provided: No Physical Exam ED Vital Signs: Vital Signs - 24 hr 12/09/24 14:02 Temperature 98.2 F Pulse Rate 73 Respiratory Rate 16 Blood Pressure 128/71 Pulse Oximetry 98 Oxygen Delivery Method Room Air BMI result Body Mass Index 26.7 Const General: cooperative, no acute distress, alert and awake Nutritional Appearance: well nourished Orientation/consciousness: patient oriented x3 HENMT Head: Yes normal to inspection and Yes atraumatic Ears: hearing grossly normal bilaterally and external ears normal General nose exam: Normal external nose present, no nasal discharge noted and no epistaxis Face and sinus: Yes normal facial exam, No abrasion and No laceration Mouth: Normal oral and palatal mucosa present, no drooling and no muffled voice Eyes General: appearance normal, both eyes and all related structures Periorbital: periorbital findings normal Eyelids: Yes eyelids normal Conjunctivae: conjunctivae normal Pupils: Equal, round and reactive pupils present EOM: EOMs intact bilaterally Neck Neck: Yes normal visual inspection, Yes full ROM and Yes no lymphadenopathy Resp Effort & Inspection: normal respiratory effort and able to speak in complete sentences Neuro General: patient oriented x3, moves all extremities and CN's II-XI intact bilaterally Cranial nerves: Yes Equal, round and reactive pupils present Cognition (Neuro): normal cognition Extrem Other: General: Yes full ROM and Yes capillary refill normal Psych Appearance: grossly normal Mental Status: mental status grossly normal Affect: normal affect Attitude: cooperative Thought process: Normal thought process present Thought content: Normal thought content present Insight: Good insight present (Psych) Course Course Course Narrative: 12/09/24 1406 SON Lindsay This is a Rapid Medical Examination (RME) performed by Sherri Knowles PA-C in triage. Full HPI, ROS, assessment and treatment plan per primary provider in the Main ED. Hx: 29 yo M here after receiving call back d/t 2/2 positive blood cultures. presented to ED yesterday w/ for fever x24 hours. d/c home on abx. reports 2 areas of erythema to back of right leg that started today. no known insect/ tick bites. +fevers at home. Plan: labs, lactic, BC, tick/lyme panel Medications Administered Discontinued Medications Generic Name Dose Route Start Last Admin Trade Name Freq PRN Reason Stop Dose Admin Cefepime HCl 2 gm in 50 mls @ 100 mls/hr 12/09/24 14:31 12/09/24 15:44 Maxipime IV 12/09/24 15:00 Infused ONCE ONE Infusion Medical Decision Making Medical Decision Making MDM Narrative: Patient is a 29 year old assigned male at with no reported medical history presenting to the emergency department today with a right lower leg rash and abnormal lab work. Patient's physical exam was as noted in the physical exam portion of this note. Patient's blood work showed a CRP of 16.73 as well as 2/2 positive blood cultures from 12/08/2024 for gram negative rods. Patient's clinical presentation is most consistent with positive blood cultures for a gram negative eliezer organism and a right lower leg rash. I spoke to the hospitalist team who agreed to admission. I explained my physical exam findings as well as all test results to the patient. I answered all questions asked by the patient. Patient received IV cefepime. Patient verbalized agreement and understanding with this treatment plan and admission. Differential Diagnosis Differential Diagnoses: The differential diagnosis associated with the presentation includes Bactermia Elevated CRP Right lower leg rash Admission/Observation Consideration of admission/observation: Escalation of care including admission/observation considered Patient admitted as noted in the MDM Rationale portion of this note. Consult Healthcare Provider Management of the patient was discussed with: Hospitalist (agreed to admission as noted in the MDM Rationale portion of this note. ) Lab Data [facility] Lab Attestation statement: I reviewed the patient's lab results. My interpretation of these results are in the MDM Rationale portion of this note. 12/09/24 14:43 12/09/24 14:43 Labs: Lab Results 12/09/24 Range/Units 14:43 WBC 3.9 L (4.8-10.8) X10*3/uL RBC 4.59 L (4.60-5.80) X10*6/uL Hgb 12.8 L (14.0-18.0) g/dl Hct 38.8 L (42.0-52.0) % MCV 84.5 (80.0-98.0) fL MCH 27.9 (27.0-33.0) pg MCHC 33.0 (31.0-36.0) g/dl RDW 12.7 (11.0-16.0) % Plt Count 181 (160-400) X10*3/uL MPV 9.3 L (9.4-12.4) fL Immature Gran % (Auto) 0.3 (0.0-0.4) % Neut % (Auto) 65.7 (45-73) % Lymph % (Auto) 22.9 (20-40) % [place] % (Auto) 8.5 (2-11) % Eos % (Auto) 1.8 (0-4) % Baso % (Auto) 0.8 (0-2) % Lymph # (Auto) 0.9 L (1.2-4.9) X10*3/uL Mingo # (Auto) 0.3 (0.1-1.2) X10*3/uL Eos # (Auto) 0.1 (0.0-0.4) X10*3/uL Baso # (Auto) 0.0 (0.0-0.2) X10*3/uL Abs Immat Gran (auto) 0.01 (0.00-0.03) X10*3/uL Absolute Neuts (auto) 2.6 (2.0-8.3) x10*3/uL Absolute Nucleated RBC 0.000 (0.0-0.012) X10*3/uL Nucleated RBC % (auto) 0.0 (0.0-0.2) /100WBC ESR 13 (0-15) MM/HR Sodium 142 (135-145) mmol/L Potassium 3.9 (3.3-5.1) mmol/L Chloride 108 (96-108) mmol/L Carbon Dioxide 26 (22-29) mmol/L Anion Gap 12 (12-20) BUN 10 (9-16) mg/dL Creatinine 0.80 (0.5-1.4) mg/dL Estim Creat Clear Calc 174.7 Estimated GFR > 60 Random Glucose 97 (60-115) mg/dL Lactic Acid 0.8 (0.5-2.0) mmol/L Calcium 8.8 D (8.4-10.2) mg/dL Magnesium 2.2 (1.6-2.6) mg/dL Total Bilirubin 0.4 (0.0-1.0) mg/dL AST 23 (5-37) U/L ALT 27 (0-40) U/L Alkaline Phosphatase 61 (39-117) U/L C-Reactive Protein 16.73 H (< or = 0.50) mg/dL Total Protein 6.6 (6.5-8.0) g/dL Albumin 4.2 (3.5-5.0) g/dL Critical Care Time Critical Care Time Critical Care Time: Yes Total Critical Care Time: 37 Attestation: I spent 37 minutes of Critical Care Time with this patient. This does not include time spent on separately reported billable procedures. Discharge Plan Discharge Clinical Impression: Bacteremia, Blood culture positive, Rash Patient Disposition: Admitted As Inpatient
[2024-12-09 15:03] LABS: MANUAL DIFF FLAG NO
[2024-12-09 15:08] LABS: Hematocrit 38.8 % (42.0-52.0); Hemoglobin 12.8 g/dl (14.0-18.0); Imm Gran Abs Auto 0.01 X10*3/uL (0.00-0.03); Imm Gran Pct Auto 0.3 % (0.0-0.4); Lymphocytes Absolute Auto 0.9 X10*3/uL (1.2-4.9); Mean Corpuscular HGB Conc 33.0 g/dl (31.0-36.0); Mean Corpuscular Hemoglobin 27.9 pg (27.0-33.0); Mean Corpuscular Volume 84.5 fL (80.0-98.0); NRBC Abs Auto 0.000 X10*3/uL (0.0-0.012); NRBC Pct Auto 0.0 /100WBC (0.0-0.2); Platelet Count 181 X10*3/uL (160-400); Red Blood Count 4.59 X10*6/uL (4.60-5.80); White Blood Count 3.9 X10*3/uL (4.8-10.8)
[2024-12-09] MEDS: cefEPime HCl/D5W 2 GM/50 ML PIGGYBACK IV (15:14)
[2024-12-09 15:27] LABS: Alanine Aminotransferase 27 U/L (0-40); Albumin Level 4.2 g/dL (3.5-5.0); Alkaline Phosphatase 61 U/L (39-117); Anion Gap 12 (12-20); Aspartate Amino Transferase 23 U/L (5-37); Blood Urea Nitrogen 10 mg/dL (9-16); Calcium 8.8 mg/dL (8.4-10.2); Carbon Dioxide 26 mmol/L (22-29); Chloride 108 mmol/L (96-108); Creatinine Clr Calc Pharmacy 174.7; Estimated Glomerular Filt Rate > 60; Magnesium 2.2 mg/dL (1.6-2.6); Potassium 3.9 mmol/L (3.3-5.1); Sodium 142 mmol/L (135-145); Total Protein 6.6 g/dL (6.5-8.0)
--- NOTE | 2024-12-09 16:19 | PC.NURSE ---
Dr. Bray (hospitalist) at bedside. Plan for admission for +blood cultures x2 (gram negative rods). Patient otherwise denies complaints. 20g IV access to left AC. Visitor (Mary) also at bedside. Regular vegetarian diet order in. Eating salad purchased by visitor from [facility] [place] cafeteria at this time. Received Cefepime 2gm as ordered. Awaiting bed assignment. Care ongoing by this RN.
--- NOTE | 2024-12-09 16:37 | PM.IMHP ---
History of Present Illness Date of Service: 12/09/24 Chief Complaint: fever 29M PMH thryoid nodule undetermined significance, mood disorder, called for positive blood cultures. Patient presented to the ED 12/08/2024 with complaints of fevers, 1 episode of loose stool and mild abdominal pain. Blood cultures were taken, cat scan at that time showed hepatomegaly with steatosis, splenomegaly, mild diffuse small bowel mural thickening, prominent inguinal nodes, chest x-ray unremarkable, patient had been hiking in [place]. Was discharged on cefpodoxime and doxycycline. Blood cultures then came back with Gram-negative eliezer so was called to come back to ED. in ED noted to have red circular patch on back of right leg, CRP of 16, mild leukopenia of 3.9. Review of Systems Review of Systems: Yes all other systems are reviewed and are negative [facility] Medical History Thyroid nodule greater than or equal to 1.5 cm in diameter incidentally noted on imaging study Social History Advance Directives: No Advance Directives Information Provided: No Meds Allergies Allergy/AdvReac Type Severity Reaction Status Date / Time No Known Allergies Allergy Verified 12/09/24 14:07 Home Medications ?Medication ?Instructions ?Recorded ?Confirmed ?Last Taken ?Type acetaminophen 650 mg 1,300 mg PO Q4H PRN Headache/Pain 12/09/24 12/09/24 Unknown History tablet,extended release ascorbic acid (vitamin C) 250 mg 250 mg PO DAILY 12/09/24 12/09/24 12/09/24 History tablet (Vitamin C) bupropion HCl 150 mg 24 hr tablet, 150 mg PO DAILY 12/09/24 12/09/24 12/09/24 History extended release ibuprofen 200 mg tablet 400 mg PO Q6H PRN Headache/Pain 12/09/24 12/09/24 12/09/24 History magnesium 250 mg tablet 250 mg PO DAILY 12/09/24 12/09/24 12/09/24 History vitamin B complex 1 tab PO DAILY 12/09/24 12/09/24 12/09/24 History zinc acetate 25 mg (zinc) capsule 25 mg PO DAILY 12/09/24 12/09/24 12/09/24 History Physical Exam Vital Signs and Narrative: Vital Signs: Last Vital Signs Temp 98.2 F 12/09/24 14:02 Pulse 73 12/09/24 14:02 Resp 16 12/09/24 14:02 BP 128/71 12/09/24 14:02 Pulse Ox 98 12/09/24 14:02 O2 Del Method Room Air 12/09/24 14:02 BMI result Body Mass Index 26.7 General: AO X 3, no acute distress Resp: CTA bilateral, no accessory muscles used CVS: S1,S2,RRR GI: soft, non tender, non distended Neuro: motor grossly intact, alert Psych: appropriate affect, appropriate insight Results Labs 12/09/24 14:43 12/09/24 14:43 Labs: Laboratory Results - last 24 hr 12/09/24 14:43 MCV 84.5 MCH 27.9 MCHC 33.0 RDW 12.7 Plt Count 181 MPV 9.3 L Immature Gran % (Auto) 0.3 Neut % (Auto) 65.7 Lymph % (Auto) 22.9 Avery % (Auto) 8.5 Eos % (Auto) 1.8 Baso % (Auto) 0.8 Lymph # (Auto) 0.9 L A[place] # (Auto) 0.3 Eos # (Auto) 0.1 Baso # (Auto) 0.0 Abs Immat Gran (auto) 0.01 Absolute Neuts (auto) 2.6 Absolute Nucleated RBC 0.000 Nucleated RBC % (auto) 0.0 ESR 13 Anion Gap 12 Estim Creat Clear Calc 174.7 Estimated GFR > 60 Random Glucose 97 Lactic Acid 0.8 Calcium 8.8 D Magnesium 2.2 Total Bilirubin 0.4 AST 23 ALT 27 Alkaline Phosphatase 61 C-Reactive Protein 16.73 H Total Protein 6.6 Albumin 4.2 Assessment and Plan (1) Bacteremia: Status: Acute Plan 29M PMH thryoid nodule undetermined significance, mood disorder, called for positive blood cultures Gram-negative eliezer bacteremia with rash Ceftriaxone, empiric treatment for tick-borne with doxycycline Follow up cultures, tick panel, ID eval Mood disorder Wellbutrin Low risk DVT, early ambulation Full Code Given bacteremia would treat with IV antibiotics until speciation and sensitivities back therefore expected require at least 2 midnights inpatient Quality Stroke Does the patient have a stroke diagnosis?: No VTE Prior VTE?: No VTE Risk Level:: Medical - low VTE Device Contraindication: Treatment Not Indicated VTE Drug Contraindication: Treatment Not Indicated
--- NOTE | 2024-12-09 16:40 | PHA.MEDREC ---
Addendum entered by Aida Rob RPh 12/09/24 16:56: reviewed by [facility] Original Note: Pharmacy Consult ? Medication Reconciliation Pharmacy has completed the medication reconciliation. Spoke with pt and spouse at bedside. Pt confirmed he is taking Bupropion 150mg tabs QD. Pt confirmed he has not started the Cefpodxime and Doxycycline tablet yet or picked them up from the pharmacy. Pt spouse confirmed pt's OTC medications (Vitamin C, Vitamin B complex, Zinc, Magnesium, Ibuprofen and Tylenol). Pt and spouse confirmed pt took all his morning medications this morning
--- NOTE | 2024-12-09 17:24 | PC.NURSE ---
RN to RN report given to Thong Clark. Plan to move patient from ED 23 to Overflow. Patient denies complaints at this time. Care ongoing by this RN until move to Overflow ED.
--- NOTE | 2024-12-09 18:41 | PC.NURSE ---
patient arrived in overflow 1830 alert and oriented with no distress, no complaints, no questions for RN palpable pulses, breathing relaxed and unlabored on room air. patches of erythema to posterior R leg circled with skin marker. patients labs reviewed, abnormal CRP, blood cultures pending, tick panel pending. patient slightly hypertensive up to 160s systolic see vitals. no needs from nurse or tech at this time, safety measures in place. awaiting results of ED work-up
[2024-12-09 18:44] VITALS: BP 158/80; PULSE 72; RESP 18; TEMP 37.3; O2SAT 99
[2024-12-09 19:49] VITALS: BMI 26.8
[2024-12-09 20:00] VITALS: BP 140/82; PULSE 72; RESP 17; TEMP 37.2; O2SAT 99
--- NOTE | 2024-12-09 20:18 | MHC.EDTECH ---
Addendum entered by Maya Howe CNA 12/09/24 20:20: temperature was 98.9 temporal due to not having a oral temp in the unit. Original Note: pt vitals are 97oxygen 18Respitory 75 heart rate 133/69 blood pressure on the right upper arm, well in a semi fowlers postion
--- NOTE | 2024-12-09 20:41 | PC.NURSE ---
Assumed care of this patient at 19:00. Patient shortly after assigned a bed on [facility]-surg room 363. Patient A&Ox4. Normothermic to touch. Axillary temp obtained due to no working oral thermometer present on unit. Pt denies chills, dizziness, sob, and chest pain. Breathing even and unlabored without distress. Red areas x2 to right posterior leg remain outlined. Pt denies pain at these sites. Pt reported intermittent mild headache 1/10 at the back of his head. No issues on assessment noted. Pt reported pain was tolerable and denied interventions. Pt voided in bathroom, denied acute issues. Report given to receiving RN on s3. Patient transported via wheelchair in stable condition with all belongings by transport at 20:37.
[2024-12-09] MEDS: 0.9 % Sodium Chloride Flush 3 ML SYRINGE IVFLUSH (21:06)
[2024-12-10 03:00] VITALS: BP 108/60; PULSE 60; RESP 18; TEMP 37.5; O2SAT 98
[2024-12-10 06:21] LABS: Hematocrit 33.8 % (42.0-52.0); Hemoglobin 11.9 g/dl (14.0-18.0); Mean Corpuscular HGB Conc 35.2 g/dl (31.0-36.0); Mean Corpuscular Hemoglobin 29.0 pg (27.0-33.0); Mean Corpuscular Volume 82.2 fL (80.0-98.0); NRBC Abs Auto 0.000 X10*3/uL (0.0-0.012); NRBC Pct Auto 0.0 /100WBC (0.0-0.2); Platelet Count 165 X10*3/uL (160-400); Red Blood Count 4.11 X10*6/uL (4.60-5.80); White Blood Count 3.5 X10*3/uL (4.8-10.8)
[2024-12-10 06:42] LABS: Anion Gap 13 (12-20); Blood Urea Nitrogen 8 mg/dL (9-16); Calcium 8.4 mg/dL (8.4-10.2); Carbon Dioxide 26 mmol/L (22-29); Chloride 109 mmol/L (96-108); Creatinine Clr Calc Pharmacy 188.9; Estimated Glomerular Filt Rate > 60; Magnesium 2.2 mg/dL (1.6-2.6); Potassium 3.5 mmol/L (3.3-5.1); Sodium 144 mmol/L (135-145)
[2024-12-10 07:27] VITALS: BP 118/64; PULSE 67; RESP 18; TEMP 37.2; O2SAT 98
[2024-12-10] MEDS: buPROPion HCl XL 150 MG TAB.ER.24H PO (08:38)
[2024-12-10] MEDS: 0.9 % Sodium Chloride Flush 3 ML SYRINGE IVFLUSH ×3 (08:39→20:53)
--- NOTE | 2024-12-10 09:04 | P.PNIM_ITS ---
Subjective Subjective Date of Service: 12/10/24 Interval History: unchanged Physical Exam 2 Vital Signs: Vital Signs: Last Vital Signs Temp 98.9 F 12/10/24 07:27 Pulse 67 12/10/24 07:27 Resp 18 12/10/24 07:27 BP 118/64 12/10/24 07:27 Pulse Ox 98 12/10/24 07:27 O2 Del Method Room Air 12/10/24 07:27 BMI result Body Mass Index 26.8 General: AO X 3, no acute distress Resp: CTA bilateral, no accessory muscles used CVS: S1,S2,RRR GI: soft, non tender, non distended Neuro: motor grossly intact, alert Psych: appropriate affect, appropriate insight right calf erythematous patch Objective Data Active Medications Acetaminophen (Acetaminophen 325 Mg Tablet) 650 mg PO Q6H PRN PRN Reason: Pain, Mild 1-3,fever,headache Ascorbic Acid (Ascorbic Acid 250 Mg Tablet) 250 mg PO DAILY [facility] Last Admin: 12/10/24 08:39 Dose: 250 mg Documented By: NATALIA Bupropion HCl (Bupropion Hcl Xl 150 Mg Tab.Er.24h) 150 mg PO DAILY [facility] Last Admin: 12/10/24 08:38 Dose: 150 mg Documented By: NATALIA Calcium Carbonate (Calcium Carbonate 750 Mg Tab.Chew) 750 mg PO Q4H PRN PRN Reason: Heartburn Ceftriaxone Sodium (Ceftriaxone Sodium 1 Gm Vial) 1 gm IVPUSH Q24H [facility] Last Admin: 12/10/24 08:38 Dose: 1 gm Documented By: NATALIA Doxycycline Monohydrate (Doxycycline Monohydrate 100 Mg Capsule) 100 mg PO Q12H [facility] Last Admin: 12/10/24 08:39 Dose: 100 mg Documented By: NATALIA Magnesium Hydroxide (Milk Of Magnesia 30 Ml Oral.Susp) 30 ml PO DAILY PRN PRN Reason: Constipation Magnesium Oxide (Magnesium Oxide 400 Mg Tablet) 400 mg PO DAILY [facility] Last Admin: 12/10/24 08:39 Dose: 400 mg Documented By: NATALIA Melatonin (Melatonin 3 Mg Tablet) 6 mg PO BEDTIME PRN PRN Reason: Insomnia Multivitamins/Vitamin C (Multivitamin Tablet) 1 tab PO DAILY [facility] Last Admin: 12/10/24 08:39 Dose: 1 tab Documented By: NATALIA Sodium Chloride (0.9 % Sodium Chloride Flush 3 Ml Syringe) 3 ml IVFLUSH QSHIFT [facility] Last Admin: 12/10/24 08:39 Dose: 3 ml Documented By: NATALIA Labs 12/10/24 05:34 12/10/24 05:34 Labs: Laboratory Results - last 24 hr 12/09/24 12/10/24 14:43 05:34 MCV 84.5 82.2 MCH 27.9 29.0 MCHC 33.0 35.2 RDW 12.7 12.7 Plt Count 181 165 MPV 9.3 L 9.7 Immature Gran % (Auto) 0.3 Neut % (Auto) 65.7 Lymph % (Auto) 22.9 [place] % (Auto) 8.5 Eos % (Auto) 1.8 Baso % (Auto) 0.8 Lymph # (Auto) 0.9 L [place] # (Auto) 0.3 Eos # (Auto) 0.1 Baso # (Auto) 0.0 Abs Immat Gran (auto) 0.01 Absolute Neuts (auto) 2.6 Absolute Nucleated RBC 0.000 0.000 Nucleated RBC % (auto) 0.0 0.0 ESR 13 Anion Gap 12 13 Estim Creat Clear Calc 174.7 188.9 Estimated GFR > 60 > 60 Random Glucose 97 134 H Lactic Acid 0.8 Calcium 8.8 D 8.4 Magnesium 2.2 2.2 Total Bilirubin 0.4 AST 23 ALT 27 Alkaline Phosphatase 61 C-Reactive Protein 16.73 H Total Protein 6.6 Albumin 4.2 Assessment and Plan (1) Bacteremia: Status: Acute Plan 29M PMH thryoid nodule undetermined significance, mood disorder, called for positive blood cultures Gram-negative eliezer bacteremia with rash Ceftriaxone, empiric treatment for tick-borne with doxycycline Follow up cultures, tick panel, ID eval Mood disorder Wellbutrin Low risk DVT, early ambulation Full Code reason for continued hospitalization:cultures Quality Stroke Does the patient have a stroke diagnosis?: No VTE Prior VTE?: No VTE Risk Level:: Medical - low VTE Device Contraindication: Treatment Not Indicated VTE Drug Contraindication: Treatment Not Indicated
--- NOTE | 2024-12-10 14:20 | MHC.CM.PN ---
PATIENT LIVES IN AN APT W/ ROOMMATE. FUNCTIONALLY INDEPENDENT. DENIES USE OF DME OR SERVICES. PCP JANNETTE [employer] COMPLETED HCP NAMING HIS S[facility]O. [facility]. DP: PENDING ID JUAN. GOAL IS HOME SELF CARE. S.O. TO TRANSPORT.
--- NOTE | 2024-12-10 15:00 | P.CNID_ITS ---
History of Present Illness Data of Consult Service Date: 12/10/24 Requesting physician: Reagan Bray Primary Care Provider: Sandra Holley NP HPI Reason for consult: sepsis He presents with fever to 103 and chills and tachycardia. There are gram negative rods in blood. He has traveled [place] 11/29-12/06. He has had some mosquito bites,didnt eat game. He has had cholecystectomy 5 years ago. He has some mild RUQ pain,gone. Review of Systems 2 Review of Systems: Yes all other systems are reviewed and are negative [facility] Past Medical History Medical History Thyroid nodule greater than or equal to 1.5 cm in diameter incidentally noted on imaging study Family History Family history: reviewed and not pertinent Social History Social History Household Members: Spouse and Friend(s) Housing: House Do you presently have visiting nurse or other home services: No Patient Tobacco Use Status: Never used Tobacco service: No Meds Allergies Allergy/AdvReac Type Severity Reaction Status Date / Time No Known Allergies Allergy Verified 12/09/24 14:07 Active Medications: Current Medications Acetaminophen (Acetaminophen 325 Mg Tablet) 650 mg PO Q6H PRN PRN Reason: Pain, Mild 1-3,fever,headache Ascorbic Acid (Ascorbic Acid 250 Mg Tablet) 250 mg PO DAILY [facility] Last Admin: 12/10/24 08:39 Dose: 250 mg Bupropion HCl (Bupropion Hcl Xl 150 Mg Tab.Er.24h) 150 mg PO DAILY [facility] Last Admin: 12/10/24 08:38 Dose: 150 mg Calcium Carbonate (Calcium Carbonate 750 Mg Tab.Chew) 750 mg PO Q4H PRN PRN Reason: Heartburn Ceftriaxone Sodium (Ceftriaxone Sodium 1 Gm Vial) 1 gm IVPUSH Q24H [facility] Last Admin: 12/10/24 08:38 Dose: 1 gm Doxycycline Monohydrate (Doxycycline Monohydrate 100 Mg Capsule) 100 mg PO Q12H [facility] Last Admin: 12/10/24 08:39 Dose: 100 mg Magnesium Hydroxide (Milk Of Magnesia 30 Ml Oral.Susp) 30 ml PO DAILY PRN PRN Reason: Constipation Magnesium Oxide (Magnesium Oxide 400 Mg Tablet) 400 mg PO DAILY [facility] Last Admin: 12/10/24 08:39 Dose: 400 mg Melatonin (Melatonin 3 Mg Tablet) 6 mg PO BEDTIME PRN PRN Reason: Insomnia Multivitamins/Vitamin C (Multivitamin Tablet) 1 tab PO DAILY [facility] Last Admin: 12/10/24 08:39 Dose: 1 tab Sodium Chloride (0.9 % Sodium Chloride Flush 3 Ml Syringe) 3 ml IVFLUSH QSHIFT [facility] Last Admin: 12/10/24 08:39 Dose: 3 ml Home Medications ?Medication ?Instructions ?Recorded ?Confirmed ?Last Taken ?Type acetaminophen 650 mg 1,300 mg PO Q4H PRN Headache /Pain 12/09/24 12/09/24 Unknown History tablet,extended release ascorbic acid (vitamin C) 250 mg 250 mg PO DAILY 12/0912/09/24 12/09/24 History tablet (Vitamin C) bupropion HCl 150 mg 24 hr tablet, 150 mg PO DAILY 12/09/24 12/09/24 History extended release ibuprofen 200 mg tablet 400 mg PO Q6H PRN Headache/P ain 12/09/24 12/09/24 12/09/24 History magnesium 250 mg tablet 250 mg PO DAILY 12/09/2412/09/24 History vitamin B complex 1 tab PO DAILY 12/09/2411/2612/09/24 History zinc acetate 25 mg (zinc) capsule 25 mg PO DAILY 12/0912/09/24 12/09/24 History Physical Exam 2 Vital Signs: Vital Signs: Last Vital Signs Temp 98.9 F 12/10/24 07:27 Pulse 67 12/10/24 07:27 Resp 18 12/10/24 07:27 BP 118/64 12/10/24 07:27 Pulse Ox 98 12/10/24 07:27 O2 Del Method Room Air 12/10/24 07:27 BMI result Body Mass Index 26.8 Const: General: cooperative HEENT: Head: Yes normal to inspection Face and sinus: Yes normal facial exam Mouth: Normal oral and palatal mucosa present Teeth and gingiva: d entition normal Eyes: General: appearance normal, both eyes and all related structures P upils: Equal, round and reactive pupils present Resp: Effort & Inspection: normal respiratory effort Cardio: Rate: regular rate Rhythm: regular rhythm GI: Palpation (GI): Soft to palpation and nontender : General: Yes no CVA tenderness Back/Spine/Pelvis: Back: no CVA tenderness Skin: General skin exam: no rashes or lesions noted Neuro: General: moves all extremities Cranial nerves: Yes Equal, round and reactive pupils present Extrem: Other: right posterior leg resolving circular lesions Psych: Appearance: grossly normal Results Labs 12/10/24 05:34 12/10/24 05:34 Labs: Short CBC 12/09/24 12/10/24 Range/Units 14:43 05:34 WBC 3.9 L 3.5 L (4.8-10.8) X10*3/uL Hgb 12.8 L 11.9 L (14.0-18.0) g/dl Hct 38.8 L 33.8 L (42.0-52.0) % Plt Count 181 165 (160-400) X10*3/uL BMP 12/09/24 12/10/24 14:43 05:34 Sodium 142 144 Potassium 3.9 3.5 Chloride 108 109 H Carbon Dioxide 26 26 BUN 10 8 L Creatinine 0.80 0.74 Calcium 8.8 D 8.4 Liver Function 12/09/24 Range/Units 14:43 Total Bilirubin 0.4 (0.0-1.0) mg/dL AST 23 (5-37) U/L ALT 27 (0-40) U/L Alkaline Phosphatase 61 (39-117) U/L Albumin 4.2 (3.5-5.0) g/dL Assessment and Plan (1) Bacteremia: Status: Acute (2) Rash: Status: Acute Plan gram negative rods blood possible E coli ?obstructive bile ducts but LFTs normal. ?typhoid fever Continue Ceftriaxone and Doxycycline Await cultures Check HIV,Hepatitis C ,(syphilis negative)
[2024-12-10 15:44] VITALS: BP 132/70; PULSE 69; RESP 18; TEMP 37.4; O2SAT 98
[2024-12-10 20:00] VITALS: BP 129/61; PULSE 78; RESP 18; TEMP 37.1; O2SAT 98
[2024-12-10 23:39] LABS: A. Phagocytphilium DNA,RT-PCR NOT DETECTED (NOT DETECTED); Babesia Microti DNA, RT-PCR NOT DETECTED (NOT DETECTED); Borrelia Miyamotoi,DNA RT-PCR NOT DETECTED (NOT DETECTED); E.Chaffeensis DNA RT-PCR NOT DETECTED (NOT DETECTED); Lyme(Borrelia ssp)DNA RT-PCR NOT DETECTED (NOT DETECTED)
[2024-12-11 04:00] VITALS: BP 106/52; PULSE 59; RESP 18; TEMP 36.7; O2SAT 98
[2024-12-11 06:40] LABS: HBS Num1 19.16 mIU/mL (0-7.99); HBc Num1 0.13 S/CO (0.00-0.79); HBsAGNum1 0.38 S/CO (0.00-0.99); HIV Num 1 0.05 S/CO (0.00-0.99); Hepatitis B Surface Antigen Negative (Negative); ~HepC Num1 0.09 S/CO (0.00-0.79); ~Hepatitis B Surface Antibody REACTIVE (Nonreactive); ~Hepatitis C Antibody Nonreactive (Nonreactive)
[2024-12-11 07:54] VITALS: BP 125/70; PULSE 68; RESP 16; TEMP 36.1; O2SAT 98
[2024-12-11] MEDS: buPROPion HCl XL 150 MG TAB.ER.24H PO (08:27)
[2024-12-11] MEDS: 0.9 % Sodium Chloride Flush 3 ML SYRINGE IVFLUSH (08:27)
--- NOTE | 2024-12-11 11:24 | P.DS_ITS ---
DS: Providers Provider Date of Service: 12/11/24 Date of admission: 12/09/24 15:36 Date of discharge: 12/11/24 Primary care physician: Sandra Holley NP Consults: 12/09/24 16:36 Consult to Infectious Diseases Routine Consulting Provider: [facility] Reason for consultation: fever, rash, GNR bacteremia DS: Diagnosis Discharge Diagnosis (1) Bacteremia: Status: Acute (2) Rash: Status: Acute DS: Summary Hospital Course Hospital Course: from initial hpi: 29M PMH thryoid nodule undetermined significance, mood disorder, called for positive blood cultures. Patient presented to the ED 12/08/2024 with complaints of fevers, 1 episode of loose stool and mild abdominal pain. Blood cultures were taken, cat scan at that time showed hepatomegaly with steatosis, splenomegaly, mild diffuse small bowel mural thickening, prominent inguinal nodes, chest x-ray unremarkable, patient had been hiking in [place]. Was discharged on cefpodoxime and doxycycline. Blood cultures then came back with Gram-negative eliezer so was called to come back to ED. in ED noted to have red circular patch on back of right leg, CRP of 16, mild leukopenia of 3.9. hospital course: Patient was admitted for Gram-negative eliezer bacteremia with rash was treated empirically with ceftriaxone and doxycycline. Blood culture ended up growing Klebsiella oxytocia. Case was discussed with infectious disease who recommended complete treatment with 10 days of cefuroxime to cover Klebsiella and 10 days of doxycycline to cover tick-borne and possible false-negative result given rash. For findings of hepatosplenomegaly on previous CAT scan should follow up CAT scan in about 1 month to ensure resolution. Patient's fevers have resolved, repeat culture negative, and will be discharged home. For mood disorder was continued on Wellbutrin. Time Attestation Discharge Coordination Time (in mins): 34 Quality: Safe Use of Opioids Does Pt have an Active Cancer Diagnosis on the Problem List?: No Quality: Stroke Does the patient have a stroke diagnosis?: No Physical Exam Vital Signs: Vital Signs: Last Vital Signs Temp 97.0 F 12/11/24 07:54 Pulse 68 12/11/24 07:54 Resp 16 12/11/24 07:54 BP 125/70 12/11/24 07:54 Pulse Ox 98 12/11/24 07:54 O2 Del Method Room Air 12/11/24 07:54 BMI result Body Mass Index 26.8 Const: General: cooperative HEENT: Head: Yes normal to inspection Face and sinus: Yes normal facial exam Mouth: Normal oral and palatal mucosa present Teeth and gingiva: dentition normal Eyes: General: appearance normal, both eyes and all related structures Pupils: Equal, round and reactive pupils present Resp: Effort & Inspection: normal respiratory effort Cardio: Rate: regular rate Rhythm: regular rhythm GI: Palpation (GI): Soft to palpation and nontender : General: Yes no CVA tenderness Back/Spine/Pelvis: Back: no CVA tenderness Skin: General skin exam: no rashes or lesions noted Neuro: General: moves all extremities Cranial nerves: Yes Equal, round and reactive pupils present Extrem: Other: right posterior leg resolving circular lesions Psych: Appearance: grossly normal DS: Data Data Completed and Pending Labs on day of discharge: Laboratory Results - last 24 hr 12/09/24 12/11/24 14:43 05:35 Hold Purple Top SEE NOTE A.phagocytophil DNA PCR NOT DETECTED Babesia microti DNA PCR NOT DETECTED Borrelia sp DNA (PCR) NOT DETECTED Borrelia miyamotoi (PCR) NOT DETECTED E.chaffeensis DNA (PCR) NOT DETECTED Hep Bs Antigen Negative Hep Bs Antibody REACTIVE Hep B Core Total Ab Nonreactive Hepatitis C Ab (EIA) Nonreactive HIV 1&2 Ab/P24 Ag 4thGn Nonreactive Tick-borne Disease PCR SEE NOTE Preliminary micro results at discharge 12/09/24 14:43 Blood Culture - Preliminary Blood - Venous No growth after 24 hours. 12/09/24 14:57 Blood Culture - Preliminary Blood - Venous No growth after 24 hours. Discharge Plan Discharge Anticipated Discharge Date/Time: 12/11/24 11:21 Patient Disposition: Home, Self-Care Discharge Diagnosis: klebsiella bacteremia Referrals: Karly Orellana MD [Physician, Infectious Disease] - 1 Week Sandra Holley NP [Primary Care Provider, Family Practice] - 1 Week Discharge Medications: New doxycycline monohydrate 100 mg Capsule 100 mg PO Q12H Qty: 20 0RF cefuroxime axetil 500 mg tablet 500 mg PO BID Qty: 20 0RF Continued zinc acetate 25 mg (zinc) Capsule 25 mg PO DAILY acetaminophen 650 mg Tablet Extended Release 1,300 mg PO Q4H PRN (Reason: Headache/Pain) ascorbic acid (vitamin C) [Vitamin C] 250 mg Tablet 250 mg PO DAILY ibuprofen 200 mg Tablet 400 mg PO Q6H PRN (Reason: Headache/Pain) vitamin B complex Tablet 1 tab PO DAILY magnesium 250 mg Tablet 250 mg PO DAILY bupropion HCl 150 mg tablet extended release 24 hr 150 mg PO DAILY Discharge Orders: Discharge Order (Routine); Ordered 12/11/24 Ordered By: Reagan Bray Diet: Advance to usual diet Activity on Discharge: As tolerated Stand Alone Forms: Patient Portal Discharge page, Work/School Release Print Language: Hungarian Other Ambulatory Orders: CT abdomen pelvis wo IV con (Routine) Timeframe: 1 Month Facility: [facility] - Location: CT Scan Ordered By: Reagan Bray Care Plan Goals: recovery Health Concerns: klebsiella bacteremi, leg rash, enlarged live and spleen Plan of Treatment: 10 days ceftin and doxy follow up ID follow up repeat imaging Assessment: see above
--- NOTE | 2024-12-11 12:36 | MHC.CM.PN ---
Patient medically cleared for dc home self care via private transport.
--- NOTE | 2024-12-25 09:28 | P.CDIM_ITS ---
PROVIDER RESPONSE TEXT: To clarify, the appropriate diagnosis supported by the clinical indicators: Sepsis is/was present on admission and is a clinical diagnosis QUERY TEXT: PHYSICIAN'S DOCUMENTATION REQUEST Date of Query: 12/25/2024 09:13 AM EDT Patient Name: Anuj Duran Admit Date: 12/09/2024 Dear Reagan Bray MD, A review of the medical record indicates additional documentation may be needed. Please review below and update the documentation accordingly. The patient's infectious clinical indicators include: Per ID note 12/10/24: Reason for consult: sepsis He presents with fever to 103 and chills and tachycardia. There are gram negative rods in blood IV Ceftriaxone and Doxycycline Recognized standard criteria for this condition and other infectious definitions includes: Bacteremia Abnormal laboratory test - does not indicate a clinically ill patient Sepsis Systemic manifestations of infection, with 2 or more SIRS criteria which include: Fever > 100.4?F or hypothermia < 96.8?F Leukocytosis - WBC > 12,000 or leukopenia, WBC < 4,000, or > 10% bands Tachycardia- > 90 beats/minute Tachypnea- RR > 20 breaths/minute or PaCO2 < 32mmHg Source: Merck Manual 2013 Documentation should include the known or suspected organism, and the underlying infection, such as UTI or pneumonia Severe Sepsis Sepsis with associated acute organ dysfunction, such as renal or respiratory failure Documentation should indicate the association between the sepsis and the organ dysfunction Septic Shock Severe sepsis with associated with circulatory failure, evidenced by hypotension and hypo perfusion Based on the above information and the recognized standard for sepsis, could you please clarify if this diagnoses is still accurate and reflective of the patient's condition to ensure quality of the medical record. Sepsis is/was present on admission and is a clinical diagnosis After study, Sepsis has been ruled out Other (explain) Clinically unable to determine (explain) Thank you, Lurdes Concepcion RN Use of terms such as suspected, likely, concern for, or probable (associated with a specific diagnosis that is being evaluated, monitored, or treated as if it exists) are acceptable and can be coded in the inpatient setting, when documented at the time of discharge. Please use your independent medical judgment in providing your response. THIS QUERY IS PART OF THE PERMANENT MEDICAL RECORD
== END 2024-12-11 12:55 | disposition home or self-care (01) | DRG 872 ==
LOC: HO.ED 15:34 → HO.EDOVER 15:50 → HO.S3 19:43
PROVIDERS: Physician Assistant Medical; Admitting Provider Internal Medicine; Emergency Provider Emergency Medicine; PCP Nurse Practitioner Family; Visit Provider Internal Medicine
DX: A41.9 Sepsis, unspecified organism (principal); F39 Unspecified mood [affective] disorder; B96.89 Other specified bacterial agents as the cause of diseases classified elsewhere; K76.0 Fatty (change of) liver, not elsewhere classified; R21 Rash and other nonspecific skin eruption; Z79.899 Other long term (current) drug therapy
CPT/HCPCS: 36415; 80048; 80053; 83605; 83735; 85025; 85027; 85652; 86140; 86704; 86706; 86803; 87040; 87340; 87389; 87468; 87469; 87478; 87484; 87798; 99285; J0692; J0696

== ENCOUNTER → 2024-12-09 15:36 | Outpatient (BNV) | payer OTHER, SELFPAY | PROVIDERS: Admitting Provider Internal Medicine; Emergency Provider Emergency Medicine; PCP Nurse Practitioner Family; Visit Provider Internal Medicine | DX: R78.81 Bacteremia (principal); R21 Rash and other nonspecific skin eruption | CPT/HCPCS: 99232 ==

== ENCOUNTER → 2024-12-09 15:36 | Outpatient (BNV) | payer OTHER, SELFPAY | PROVIDERS: Admitting Provider Internal Medicine; Emergency Provider Emergency Medicine; PCP Nurse Practitioner Family; Visit Provider Internal Medicine | DX: R78.81 Bacteremia (principal) | CPT/HCPCS: 99223 ==

== ENCOUNTER 2024-12-18 15:38 | Outpatient (AMB) | payer OTHER, SELFPAY ==
[2024-12-18 15:40] VITALS: BP 120/60; PULSE 65; O2SAT 98
--- NOTE | 2024-12-18 15:40 | MHC.OFFVIS ---
Vital Signs 12/18/24 15:40 Weight 226 lb 13.69 oz BP 120/60 Blood Pressure Location Lt brachial Position Sitting Pulse 65 Pulse Source Pulse Oximeter Pulse Oximetry (%) 98 Oxygen Delivery Method Room Air Intake Visit Reasons: Biopsy f/u Intake Note: Patient present today for biopsy results. Bread Wrapping Machine Feeder Required: No Accompanied by: Self / Same As Patient Allergies No Known Allergies Allergy (Verified 12/18/24 15:44) Medication List - Last Reconciled 12/18/24 by Nevin Ellis MD acetaminophen ER 1,300 mg PO Q4H PRN ascorbic acid (vitamin C) (Vitamin C) 250 mg PO DAILY bupropion HCl XL 150 mg PO DAILY cefuroxime axetil 500 mg PO BID doxycycline monohydrate 100 mg PO Q12H ibuprofen 400 mg PO Q6H PRN magnesium 250 mg PO DAILY vitamin B complex 1 tab PO DAILY zinc acetate 25 mg PO DAILY HPI Comments Details: 29-year-old male coming in today for initial evaluation of large left-sided thyroid nodule. Past medical history otherwise significant for depression. On 11/02/2024, he presented to the ED after he palpate with a golf ball-sized mass to left lower neck. No pain. No fevers chills sore throat. He noticed it the week before and thought it might go down. Normal TSH 1.76 from 11/02/2024. CT soft tissue neck 11/02/2024 showed a large left-sided thyroid nodule measuring 4 X3.8 X3.5 cm. No mass effect. I reviewed the images myself which do show this is going substernally. Patient currently denies heat or cold intolerance, diarrhea or constipation, hair loss, palpitation, anxiety, weight changes, mood changes, changes in appearance of eyes or vision changes, tremors, increased diaphoresis or dry skin. Reports low energy ? Patient denies any difficulty swallowing, pain on swallowing or voice changes or difficulty breathing.Does feel a fullness/pressure sensation in the neck. Patient denies any history of childhood neck radiation. Denies having ever used lithium, amiodarone or biotin supplements. Patient denies any family history of thyroid cancer or thyroid disease. 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 11/27/2024: FNA biopsy of left midpole nodule came back as AUS with architectural atypia. With the increased micro follicles and micro acinar groups without nuclear atypia. Afirma results are officially pending, however I contacted the [employer] and they said preliminary results showed GSC testing came back suspicious these are usually 50% risk of malignancy. No specific variants or fusions identified. Pending TERT testing. Physical exam General: sitting comfortably in no acute distress HEENT: normocephalic/atraumatic Neck: supple, palpable 3 cm left-sided nodule Cardiac: normal heart sounds Pulm: normal breath sounds B/L, no added breath sounds Abd: not distended, no tenderness Extremities: no edema, no signs of myxedema Neuro: AAO x3, Speech: normal, no facial droop, moving all 4 extremities Laboratory Tests 11/02/24 13:45 TSH 1.76 EXAMINATION: US THYROID 11/18/24 HISTORY: E04.1 - Nontoxic single thyroid nodule TECHNIQUE: Real-time grayscale ultrasound imaging was performed and images were reviewed. COMPARISON: Correlation is made with a CT of the neck with contrast dated 11/02/2024. FINDINGS: SIZE: The right thyroid lobe measures 5.6 x 1.2 x 1.7 cm. The left thyroid lobe measures 6.3 x 2.9 x 3.3 cm. The isthmus measures 6 mm. FLOW: Flow to the gland is normal. ECHOGENICITY: The echotexture of the gland is homogeneous. NODULES: There is a single nodule identified with imaging characteristics as described below: Nodule #: 1 Location: Mid to lower pole of the left thyroid lobe measuring 3.8 x 2.8 x 3.9 cm. Shape: Wider than tall (0 points) Margins: Smooth (0 points) Echotexture: Hyperechoic (1 point) Composition: Mostly solid (2 points) Calcifications: None (0 points) Total points: 3 TIRADS: TR3: Mildly suspicious. US/US thyroid IMPRESSION: 3.8 x 2.8 x 3.9 cm mildly suspicious nodule at the mid to lower pole of the left thyroid lobe. According to ACR TI-RADS guidelines below, ultrasound-guided fine-needle aspiration is recommended. [facility] Medical History Thyroid nodule greater than or equal to 1.5 cm in diameter incidentally noted on imaging study Social History Household Members: Spouse and Friend(s) Housing: House Do you presently have visiting nurse or other home services: No Patient Tobacco Use Status: Never used Tobacco service: No Physical Exam Vital Signs: Last Vital Signs Pulse 65 12/18/24 15:40 BP 120/60 12/18/24 15:40 Pulse Ox 98 12/18/24 15:40 Oxygen Delivery Method Room Air 12/18/24 15:40 Assessment & Plan Assessment & Plan (1) Thyroid nodule greater than or equal to 1.5 cm in diameter incidentally noted on imaging study: Code(s): E04.1 - Nontoxic single thyroid nodule Category: Medical Plan: 29-year-old male with no family history of thyroid cancer, with no personal history of head or neck radiation, coming in today for follow up of large left-sided thyroid nodule. in October 2024, he palpated the nodule himself and then on 11/02/2024 reported to the ED for further evaluation, we are on CT imaging he was found to have a large left-sided 4 cm nodule, CT soft tissue neck 11/02/2024 showed a large left-sided thyroid nodule measuring 4 X3.8 X3.5 cm. No mass effect. I reviewed the images myself which do show this is going substernally. 11/18/2024: Ultrasound of the thyroid, I reviewed the images myself, which showed a left mid lower 3.9 cm solid hypoechoic TR 3 category nodule. 11/27/2024: FNA biopsy of left midpole nodule came back as AUS with architectural atypia. With the increased micro follicles and micro acinar groups without nuclear atypia. Afirma results are officially pending, however I contacted the [employer] and they said preliminary results showed GSC testing came back suspicious these are usually 50% risk of malignancy. No specific variants or fusions identified. Pending TERT testing. At this point would recommend left lobectomy evaluation. We will refer him to Dr. Billie Glasgow at [facility]. We will also follow up on official Afirma results. I discussed with the patient that most likely he is going to get left lobectomy which entails a 50% chance of hypothyroidism after. Even if his Afirma results were not suspicious, given his young age and large size of the nodule I would have recommended surgical evaluation. We will check his vitamin-D levels, discussed minor risk of injury to parathyroid glands during thyroid surgery, minimal risk of bleeding, infection. I have recommended him to start taking vitamin-D 1000 units daily to avoid risk of hypocalcemia if parathyroid glands were injured. . Normal TSH from October 2024. Plan: -surgical referral to Dr. Billie Glasgow at [facility] for evaluation for left lobectomy -follow up on official Afirma results and once we get those we will fax them over 2 Dr. Billie Glasgow as well -start vitamin-D 1000 units daily -check vitamin-D levels Plan I spent 30 minutes in reviewing the record, seeing the patient and documenting in the medical record. Orders: Orders Vitamin D 25-OH Total Today E04.1 - Nontoxic single thyroid nodule, E55.9 - Vitamin D deficiency, unspecified Referrals General Surgery Referral E04.1 - Nontoxic single thyroid nodule Patient Instructions: Start vitamin D 1000 units daily , any over the counter brand Do your vitamin D levels We will refer you to Dr. Billie Glasgow at [facility] in [place], please expect a call from his office for scheduling apppointment If you havent heard from anyone in 2-3 weeks you can either call our office to follow up on the status of the referral or call his office directly Coding Level of Care Code Est Pt Level 4 (91561) Diagnoses Thyroid nodule greater than or equal to 1.5 cm in diameter incidentally noted on imaging study E04.1 Time Spent (min) 30
--- OUTSIDE RECORDS SUMMARY | 2024-12-18 15:51 | XMS_ITS | Clinical Summary ---
Author Organization [facility] Address [address] [place] [address] Care Team Providers Care Machine Binding Folder Name Role Phone Pcp, No Primary Care [...] patient's age to complete this topic Insurance [facility] Care Teams Machine Binding Folder Relationship Specialty Start Date End Date Pcp, No PCP - General General Medicine 06/28/24
== END 2024-12-18 16:38 | disposition home or self-care (01) ==
LOC: HO.ENCR 15:39
PROVIDERS: PCP Nurse Practitioner Family; Visit Provider Student in an Organized Health Care Education/Training Program
DX: E04.1 Nontoxic single thyroid nodule (principal)
CPT/HCPCS: 99214

== ENCOUNTER 2024-12-25 15:29 | Inpatient (IN) | payer OTHER, SELFPAY ==
--- NOTE | ~2024-12-25 | CT_ITS ---
EXAMINATION: CT CHEST WITH IV CONTRAST, CT ABDOMEN PELVIS WITH IV CONTRAST INDICATION: FUO COMPARISON: Comparison is made with the prior CT of the abdomen and pelvis dated 12/08/2024. TECHNIQUE: CT scan of the chest, abdomen and pelvis was performed following administration of mL Omnipaque 350 using standard departmental protocol. Coronal and sagittal reformatted images were generated and reviewed. This CT exam was performed with one or more of the following dose reduction techniques: automated exposure control, adjustment of the mA and/or kV according to patient size, use of iterative reconstruction technique. DLP: 1251 mGy-cm CHEST: THYROID: There is a 4.3 cm nodule at the lower pole of the left thyroid lobe as seen on thyroid ultrasound 11/18/2024. LUNGS: There is minimal dependent atelectasis bilaterally. MEDIASTINUM: Triangular soft tissue density in the anterior mediastinum is consistent with residual thymus. There is no mediastinal lymphadenopathy. MARIAN: There is no hilar lymphadenopathy. CARDIOVASCULATURE: The heart is normal in size. There is no pericardial effusion. The thoracic aorta is normal in caliber. DEGREE OF CORONARY CALCIFICATION: none PLEURA: There is no pleural effusion. No pneumothorax. MAIN AIRWAYS: The mainstem bronchi and proximal branches are patent. AXILLA: There is no axillary lymphadenopathy. SOFT TISSUES: Unremarkable. BONES: The bones are intact. ABDOMEN: LIVER: The liver is normal in size and contour. There is mild periportal edema which is a nonspecific finding. No liver mass is identified. The hepatic and portal veins are patent. GALLBLADDER / BILE DUCTS: The gallbladder is surgically absent. There is no intra or extrahepatic biliary ductal dilatation. SPLEEN: The spleen remains enlarged. No focal splenic lesion is identified. PANCREAS: The pancreas is unremarkable in appearance. ADRENAL GLANDS: Within normal limits. KIDNEYS/RETROPERITONEUM: No renal calculi are identified. There is no hydronephrosis. No renal masses are identified. LYMPH NODES: No abdominal or pelvic lymphadenopathy. VASCULATURE: The abdominal aorta is normal in caliber. MESENTERY/PERITONEUM: No free fluid. No masses. There is no free intraperitoneal gas. STOMACH: The stomach is collapsed, limiting evaluation. SMALL BOWEL: The small bowel is normal in caliber. COLON: There is a moderate amount of stool throughout the colon. APPENDIX: Normal. URINARY BLADDER/PELVIC ORGANS: The urinary bladder is unremarkable. The prostate is normal in size. BONES / SOFT TISSUES: No suspicious bony or soft tissue abnormalities. CT/CT abdomen pelvis w IV con IMPRESSION: 1. Minimal dependent atelectasis bilaterally. 2. Splenomegaly. Mild periportal edema which is a nonspecific finding. 3. Moderate amount of stool throughout the colon. Electronically signed by: Alessandro Pride MD 12/26/2024 12:39 PM EDT
--- NOTE | ~2024-12-25 | MR_ITS ---
MR CHOLANGIOPANCREATOGRAPHY (MRCP) Technique: Multiplanar MR imaging of the abdomen was obtained per standard departmental protocol. 2-D and 3-D MRCP sequences were also obtained. History: fever, ?RUQ discomfort, hx santa, r/o CBD stone Comparison: CT of abdomen/pelvis from December 26, 2024 Findings: Lower chest: No pleural effusions. No lung consolidation. Liver: Hepatomegaly measuring 21 cm. No focal lesions. Gallbladder/bile ducts: Status post cholecystectomy. No intrahepatic biliary ductal dilatation. Common bile duct is dilated up to 0.8 cm and appears to taper smoothly towards the ampulla (3:12). However, there are small T2 hypointensities within the distal aspect of the common bile duct (3:12). Spleen: Splenomegaly measuring 14.6 cm. No focal lesions. Pancreas: No focal lesions. No ductal dilatation. Adrenal glands: No nodules. Kidneys: 0.6 cm cyst in the lower pole of the left kidney. No solid-appearing renal masses or hydronephrosis on either side. Lymph nodes: No bulky lymphadenopathy. Vasculature: No abdominal aortic aneurysm. Peritoneum/retroperitoneum: No free fluid or masses. Bowel: No bowel distention. Bones/soft tissues: Unremarkable. MR/MR MRCP IMPRESSION: 1. Mildly dilated common bile duct (up to 0.8 cm) containing multiple small T2 hypointensities in the distal aspect, likely debris, sludge or stones. Consider ERCP for better evaluation. 2. Hepatosplenomegaly. Electronically signed by: Rosa Hughes MD 12/26/2024 01:37 PM EDT
--- NOTE | ~2024-12-25 | XR_ITS ---
CLINICAL HISTORY: fever 1 view chest x-ray Comparison: CR - XR CHEST 2V - 12/08/24 17:48 EDT Findings: No consolidation or effusion. Heart size is normal. No acute fracture. IMPRESSION: 1. No acute findings. This document has been electronically signed by: Andrez Marmolejo MD on 12/25/2024 18:16:48
--- NOTE | ~2024-12-25 | FL_ITS ---
EXAMINATION: FLUOROSCOPY GUIDANCE FOR NEEDLE PLACEMENT CLINICAL INFORMATION: ERCP COMPARISON: None available. TECHNIQUE: The was performed in the OR by Dr. Zapata. FINDINGS: There is cholecystectomy. There is contrast opacifying the common bile duct with small filling defects seen in the distal CBD. There is a balloon inflated catheter seen on one of the images. The subsequent and last images reveals no filling defect FLUOROSCOPY TIME: 12.7 minutes DOSE AREA PRODUCT: 72.4 uGy-m2 (Gy-cm squared) FL/FL guidance in OR IMPRESSION: Small filling defects in the distal CBD on initial images on ERCP. Subsequent images reveal no filling defects in the CBD. In between images reveal a balloon inflated catheter in the proximal CBD. Electronically signed by: Travis Leonard MD 12/31/2024 07:16 AM EDT
--- NOTE | ~2024-12-25 | CT_ITS ---
EXAMINATION: CT SOFT TISSUE NECK WITH CONTRAST CLINICAL INFORMATION: Fever of unknown origin, sore throat. COMPARISON: CT neck 11/02/2024. Thyroid ultrasound 11/18/2024, thyroid biopsy 11/27/2024. TECHNIQUE: Following the intravenous administration of 100 mL of Omnipaque 350 intravenous contrast, helical imaging was performed in the axial plane with generation of coronal and sagittal reformatted images. This CT examination was performed using dose optimization techniques as appropriate, variously including the following: *Automated exposure control *Adjustment of mA and/or kV according to patient size (this includes techniques or standardized protocols for targeted exams where dose is matched to indication/reason for exam; i.e. extremities or head) *Use of iterative reconstruction technique FINDINGS: Lymph Nodes: -There are prominent lymph nodes in the upper anterior cervical chains, similar to the prior examination although slightly more prominent. For example, a right sided jugulodigastric lymph node measures 1.6 cm in short axis (series 3, image 59). A left-sided jugulodigastric node at the same level measures 1.4 cm in short axis (series 3, image 56). There are smaller level 2A and 2B lymph nodes present. No significant infrahyoid lymphadenopathy. Carotid Sheath Structures: -Normal in appearance. Jugular veins are patent. Salivary Glands: -Normal. Tongue Base/Floor of Mouth: -Normal Mucosal Space: -There is prominence of the palatine tonsils, adenoids, and to a lesser degree the lingula tonsils, with mild crypt enhancement involving the palatine tonsils. Findings are suggestive of tonsillitis. There is no peritonsillar abscess. -The epiglottis, aryepiglottic folds, and remainder of the mucosal space structures appear normal. There is no abnormal enhancing mass. Visceral Space: -Thyroid gland: There is a large left-sided thyroid nodule measuring 3.9 x 4.2 x 3.7 cm, unchanged from prior. -The larynx and true vocal cords are normal. -The subglottic trachea is normal. -The superior esophagus is normal. Retropharangeal Space: -Normal. Parapharyngeal Fat Planes: -Normal. Aegis Console Operator Track Spaces: -Normal. Anterior Cervical Space: -Normal. Imaged Intracranial Contents: -No mass effect, edema, or abnormal enhancement. Cortical and dural venous sinuses are patent. The skull base is normal. Globes and Orbits: -Normal. Paranasal Sinuses/Mastoids/Tympanic Spaces: -Normally aerated bilaterally. Lung Apices and Superior Mediastinal Structures: -Imaged lung apices are clear and superior mediastinal structures are normal. Bony Structures: -No suspicious bone lesions. No fractures. -Normal TM joints. CT/CT soft tissue neck w IV con IMPRESSION: 1. Tonsillitis without evidence of peritonsillar abscess. 2. Adenopathy in the upper cervical chains, notably in the jugulodigastric regions, presumably reactive given process in the tonsillar pillar soft tissues. 3. Left thyroid nodule measuring 3.9 x 4.2 x 3.7 cm, essentially unchanged in size from 11/02/2024. This underwent prior biopsy on 11/27/2024. Electronically signed by: Demetri Fuller MD 12/26/2024 12:52 PM EDT
[2024-12-25 15:43] VITALS: BP 117/57; PULSE 154; RESP 16; TEMP 39.3; O2SAT 96; BMI 26.1
--- NOTE | 2024-12-25 15:43 | ED.GENADULT ---
HPI - General Adult General Chief complaint: Fever Stated complaint: Fever Time Seen by Provider: 12/25/24 16:16 History of Present Illness ED Provider: Mariangel NOBLES narrative: The patient is a 29-year-old male recently developed fevers after returning from [place]. He presented to the emergency room here on December 08 for evaluation of a fever that had begun the previous day. He had recently returned from [place] and just before leaving for [place] he had also had a thyroid nodule biopsy on November 27. The patient was initially treated empirically with doxycycline and cefpodoxime but he returned to the hospital on December 09 for hospitalization because of positive blood cultures. He was admitted to the hospital and his blood cultures came back positive for Klebsiella oxytocin. Because of these positive blood cultures he was admitted to the hospital on December 10. There was also concern for a possible skin lesion potentially indicative of a tick-borne illness. He was discharged on December 11 with a plan to complete 10 days of doxycycline 100 mg b.i.d. and cefuroxime 500 mg b.i.d.. He says he has been taking these medications but not completely regularly. He had 2 doses left of each of these medications as of today. The patient says that he has been doing better and had returned to his normal activities and returned to work. He started to feel ill early this morning at around 03:00 when he woke up feeling unwell. He went back to sleep and woke up again at around 04:30. He continued to feel unwell throughout the morning. He took some ibuprofen. He also took doxycycline and cefuroxime this morning. He ultimately tried to go to work but he felt unwell at work and drove himself home. At home he felt quite weak and unwell and he ultimately called a family member to drive him to the hospital. He said that he was having some degree of a sore throat and also a bit of a headache. No definite chest pain or shortness of breath. No abdominal pain. No urinary discomfort. No diarrhea. Related Data Home Medications ?Medication ?Instructions ?Recorded ?Confirmed acetaminophen 650 mg 1,300 mg PO Q4H PRN Headache/Pain 12/09/24 12/25/24 tablet,extended release ascorbic acid (vitamin C) 250 mg 250 mg PO DAILY 12/09/24 12/25/24 tablet (Vitamin C) bupropion HCl 150 mg 24 hr tablet, 150 mg PO DAILY 12/09/24 12/25/24 extended release ibuprofen 200 mg tablet 400 mg PO Q6H PRN Headache/Pain 12/09/24 12/25/24 magnesium 250 mg tablet 250 mg PO DAILY 12/09/24 12/25/24 vitamin B complex 1 tab PO DAILY 12/09/24 12/25/24 zinc acetate 25 mg (zinc) capsule 25 mg PO DAILY 12/09/24 12/25/24 cefuroxime axetil 500 mg tablet 500 mg PO BID 12/25/24 12/25/24 doxycycline monohydrate 100 mg 100 mg PO Q12H 12/25/24 12/25/24 capsule Allergies Allergy/AdvReac Type Severity Reaction Status Date / Time No Known Allergies Allergy Verified 12/25/24 15:48 Review of Systems Review of Systems: Yes all other systems are reviewed and are negative [facility] Past Medical History Medical History (Updated 12/25/24 @ 21:33 by Rosa Maria Howard PA-C) Bacteremia Vitamin D deficiency Thyroid nodule greater than or equal to 1.5 cm in diameter incidentally noted on imaging study Social History Social History Household Members: Spouse and Friend(s) Housing: House Do you presently have visiting nurse or other home services: No Patient Tobacco Use Status: Never used Tobacco Smoked in Last 30 Days: No Use of substances other than those prescribed or required for medical reasons: No Advance Directives: No Advance Directives Information Provided: No service: No Physical Exam ED Vital Signs: Vital Signs - 24 hr 12/25/24 15:43 12/25/24 16:27 12/25/24 18:07 Temperature 102.8 F H 99.9 F 100.6 F H Pulse Rate 154 H 95 88 Respiratory Rate 16 15 21 H Blood Pressure 117/57 L 114/56 L 106/49 L Pulse Oximetry 96 95 96 Oxygen Delivery Method Room Air Room Air Room Air BMI result Body Mass Index 26.1 Const Other: The patient is a very tall athletic looking 29-year-old who, when I 1st encountered him, was sitting in her recliner at the blood drawing station in triage where he had become abruptly lightheaded and diaphoretic. He seemed dazed and very weak. Later, when he was in his stretcher in his room he seemed to have recovered and said to me ?I'm back. At that point the patient was awake and alert with a normal mental status. He looked moderately unwell but not toxic or in acute distress. HENMT Other: Face is symmetrical. No significant posterior pharyngeal swelling or erythema. No exudate. No significant tonsillar tissue is present. Eyes Other: Pupils are round equal, conjunctivae are clear, extraocular movements intact General: appearance normal, both eyes and all related structures Neck Other: Neck is fully supple. No adenopathy. Resp Effort & Inspection: normal respiratory effort Auscultation: clear to auscultation bilaterally Cardio Other: I do not hear a murmur Rate: regular rate Rhythm: regular rhythm Heart sounds: S1 normal heart sound present and S2 normal heart sound present GI Other: Abdomen is soft and nontender Skin Other: The patient was initially diaphoretic. At that time he seemed to be in the throes of a vagal reaction. Later his skin was pale and dry. No rashes or lesions noticed. Neuro Other: When I 1st saw the patient he seemed to be in the throes of a vagal episode. He seemed very dazed and diaphoretic. Later he was awake and alert with a normal orientation and normal mental status. Cranial nerves 2-12 are intact. His neck is supple. He moves his extremities normally and appropriately. Extrem Other: No peripheral edema. No abnormalities to the extremities. Course Course Course Narrative: RME, this is a rapid medical exam performed by Manish Brooks please refer to primary provider for complete H&P- 29-year-old male presents for evaluation of a fever. Patient was discharged from this facility on 12/11/2024 for Klebsiella bacteremia. He is still taking doxycycline reports yesterday those left. He did have a fever last night. He reports feeling well but is febrile to 102.8 in triage. Plan for repeat labs including blood cultures. He did have recent negative tick-borne panel, this was deferred. He took ibuprofen around 1:00 p.m. today and he was given acetaminophen in triage Medications Administered Discontinued Medications Generic Name Dose Route Start Last Admin Trade Name Freq PRN Reason Stop Dose Admin Acetaminophen 1,000 mg in 100 mls @ 400 mls/hr 12/25/24 16:36 12/25/24 18:16 Ofirmev IV 12/25/24 16:50 Infused ONCE ONE Infusion Sodium Chloride 1,000 mls @ 999 mls/hr 12/25/24 16:45 12/25/24 18:16 Ns IV 12/25/24 17:45 Infused .Q1H1M TOM Infusion Lactated Ringer's 1,000 mls @ 999 mls/hr 12/25/24 18:30 12/25/24 19:12 Lr IV 12/25/24 19:30 999 mls/hr .Q1H1M TOM Administration Lactated Ringer's 1,000 mls @ 999 mls/hr 12/25/24 20:00 12/25/24 19:59 Lr IV 12/25/24 21:00 999 mls/hr .Q1H1M TOM Administration Ketorolac Tromethamine 15 mg 12/25/24 17:49 12/25/24 18:19 Ketorolac Tromethamine 15 Mg/Ml Vial IVPUSH 12/25/24 17:50 15 mg ONCE ONE Administration Medical Decision Making Medical Decision Making [facility] Narrative: The patient is a 29-year-old male who returns to the emergency room with a fever that began today after having recently been ill and having been hospitalized with the an episode of bacteremia. He was seen here 2 weeks ago and had blood cultures positive for Klebsiella oxytoca. The explanation for this bacteremia has not been clear. Other significant events recently were a thyroid fine-needle aspiration and a trip to [place] with the an unanticipated sexual encounter. The patient was finishing a course of cefuroxime and doxycycline over the last 2 weeks. This should has been a 10 day course. He has been somewhat erratic and taking the medications and so was down to his last 2 doses today. He took doses of both of these medications this morning. He presented with a fever of 102.8 and tachycardia. At triage he had blood drawn and this seemed to provoke a significant vagal reaction during which he became lightheaded and profoundly diaphoretic. He was placed in a room and given IV fluids and recovered from this episode. His tachycardia resolved. The source of his recurrent fever today is not clear. By history he only mentions a mild sore throat and a mild headache. His strep is negative. There was no significant finding on exam with regard to his throat or his neck. He has a mild headache but does not seem to have an altered mental status and he has a supple neck. I do not think he has meningitis. The patient has laboratory testing in the emergency room is not very remarkable. His white count, CRP, ESR, and lactate are all unremarkable. There was no sign of any end-organ dysfunction. He is not hypotensive. Since the patient had taken cefuroxime and doxycycline this morning felt that the blood cultures that we obtained when he presented would probably not be the most reliable blood cultures and I have therefore not initiated in the antibiotics to this point. I communicated with Dr. Orellana of Infectious Disease. The patient will be admitted to the hospitalist service. At this point we will defer antibiotics for now. If he develops another significant fever he should probably have additional cultures and perhaps empiric antibiotics at that point. In the meantime the patient was given IV fluids, IV acetaminophen, and IV ketorolac. Lab Data 12/25/24 16:07 12/25/24 16:07 Labs: Lab Results 12/25/24 12/25/24 12/25/24 Range/Units 16:06 16:07 16:47 WBC 6.6 (4.8-10.8) X10*3/uL RBC 5.10 D (4.60-5.80) X10*6/uL Hgb 14.5 D (14.0-18.0) g/dl Hct 42.0 D (42.0-52.0) % MCV 82.4 (80.0-98.0) fL MCH 28.4 (27.0-33.0) pg MCHC 34.5 (31.0-36.0) g/dl RDW 12.4 (11.0-16.0) % Plt Count 241 D (160-400) X10*3/uL MPV 9.0 L (9.4-12.4) fL Immature Gran % (Auto) 0.3 (0.0-0.4) % Neut % (Auto) 87.5 H (45-73) % Lymph % (Auto) 6.5 L (20-40) % [place] % (Auto) 4.9 (2-11) % Eos % (Auto) 0.3 (0-4) % Baso % (Auto) 0.5 (0-2) % Lymph # (Auto) 0.4 L (1.2-4.9) X10*3/uL [place] # (Auto) 0.3 (0.1-1.2) X10*3/uL Eos # (Auto) 0.0 (0.0-0.4) X10*3/uL Baso # (Auto) 0.0 (0.0-0.2) X10*3/uL Abs Immat Gran (auto) 0.02 (0.00-0.03) X10*3/uL Absolute Neuts (auto) 5.8 (2.0-8.3) x10*3/uL Absolute Nucleated RBC 0.000 (0.0-0.012) X10*3/uL Nucleated RBC % (auto) 0.0 (0.0-0.2) /100WBC ESR 7 (0-15) MM/HR Sodium 137 (135-145) mmol/L Potassium 3.9 (3.3-5.1) mmol/L Chloride 102 (96-108) mmol/L Carbon Dioxide 27 (22-29) mmol/L Anion Gap 12 (12-20) BUN 13 (9-16) mg/dL Creatinine 1.04 (0.5-1.4) mg/dL Estim Creat Clear Calc 134.4 Estimated GFR > 60 Random Glucose 103 (60-115) mg/dL Lactic Acid 1.1 (0.5-2.0) mmol/L Calcium 9.4 D (8.4-10.2) mg/dL Total Bilirubin 0.8 (0.0-1.0) mg/dL AST 19 (5-37) U/L ALT 24 (0-40) U/L Alkaline Phosphatase 65 (39-117) U/L C-Reactive Protein 2.45 H (< or = 0.50) mg/dL Total Protein 7.6 (6.5-8.0) g/dL Albumin 4.9 (3.5-5.0) g/dL Lipase 13 (8-78) U/L Procalcitonin 0.07 ng/mL Influenza Type A (PCR) NEGATIVE (Negative) Influenza Type B (PCR) NEGATIVE (Negative) RSV RNA Qual (PCR) NEGATIVE (Negative) SARS-CoV-2 RNA (RT-PCR) NEGATIVE (Negative) S. pyogenes GrpA MARLON Negative (Negative) Critical Care Time Critical Care Time Critical Care Time: Yes Total Critical Care Time: 35 Attestation: The patient was critically ill with a high probability of imminent or life-threatening deterioration. ?I spent greater than 30 minutes of discontinuous time evaluating the patient, delivering critical care at the bedside, discussing evaluating data with consultants. ?Critical care time does not include time spent performing separately billable procedures or teaching. ?Time spent performing critical care with 35 minutes. Discharge Plan Discharge Clinical Impression: Fever Patient Disposition: Admitted As Inpatient
--- NOTE | 2024-12-25 16:02 | ECG_ITS ---
Test Reason : FEVER Blood Pressure : */* mmHG Vent. Rate : 95 BPM Atrial Rate : 95 BPM P-R Int : 134 ms QRS Dur : 98 ms QT Int : 330 ms P-R-T Axes : -24 62 22 degrees QTcB Int : 414 ms Normal sinus rhythm Normal ECG When compared with ECG of 08-Dec-2024 17:14, No significant change was found Referred By: Erasmo Brooks Electronically Signed By: ISAI BLANCA MD
[2024-12-25 16:11] LABS: MANUAL DIFF FLAG NO
[2024-12-25 16:13] LABS: Hematocrit 42.0 % (42.0-52.0); Hemoglobin 14.5 g/dl (14.0-18.0); Imm Gran Abs Auto 0.02 X10*3/uL (0.00-0.03); Imm Gran Pct Auto 0.3 % (0.0-0.4); Lymphocytes Absolute Auto 0.4 X10*3/uL (1.2-4.9); Mean Corpuscular HGB Conc 34.5 g/dl (31.0-36.0); Mean Corpuscular Hemoglobin 28.4 pg (27.0-33.0); Mean Corpuscular Volume 82.4 fL (80.0-98.0); NRBC Abs Auto 0.000 X10*3/uL (0.0-0.012); NRBC Pct Auto 0.0 /100WBC (0.0-0.2); Platelet Count 241 X10*3/uL (160-400); Red Blood Count 5.10 X10*6/uL (4.60-5.80); White Blood Count 6.6 X10*3/uL (4.8-10.8)
[2024-12-25 16:27] VITALS: BP 114/56; PULSE 95; RESP 15; TEMP 37.7; O2SAT 95
[2024-12-25 16:27] LABS: Alanine Aminotransferase 24 U/L (0-40); Albumin Level 4.9 g/dL (3.5-5.0); Alkaline Phosphatase 65 U/L (39-117); Anion Gap 12 (12-20); Aspartate Amino Transferase 19 U/L (5-37); Blood Urea Nitrogen 13 mg/dL (9-16); Calcium 9.4 mg/dL (8.4-10.2); Carbon Dioxide 27 mmol/L (22-29); Chloride 102 mmol/L (96-108); Creatinine Clr Calc Pharmacy 134.4; Estimated Glomerular Filt Rate > 60; Lipase 13 U/L (8-78); Potassium 3.9 mmol/L (3.3-5.1); Sodium 137 mmol/L (135-145); Total Protein 7.6 g/dL (6.5-8.0)
--- OUTSIDE RECORDS SUMMARY | 2024-12-25 16:30 | XMS_ITS | Clinical Summary ---
Author Organization [facility] Address [address] [place] [address] Care Team Providers Care Vice President Name Role Phone Pcp, No Primary Care [...] patient's age to complete this topic Insurance [facility] Care Teams Vice President Relationship Specialty Start Date End Date Pcp, No PCP - General General Medicine 06/28/24
[2024-12-25 16:54] LABS: Resp Syncy Virus RNA Qual PCR NEGATIVE (Negative); SARS COV2 PCR INHOUSE NEGATIVE (Negative)
[2024-12-25 17:00] LABS: IDNOW Serial# 55D5AD1C; Strep A Nucleic Acid Negative (Negative)
[2024-12-25 17:40] LABS: Procalcitonin 0.07 ng/mL
[2024-12-25 18:07] VITALS: BP 106/49; PULSE 88; RESP 21; TEMP 38.1; O2SAT 96
--- NOTE | 2024-12-25 18:08 | MHC.EDTECH ---
patient had some gingerale and crackers
[2024-12-25] MEDS: Lactated Ringers 1,000 ML 999 ML IV ×3 (19:12→21:54)
--- NOTE | 2024-12-25 20:11 | PHA.MEDREC ---
Addendum entered by Nelly Cade [facility] 12/25/24 20:17: REVIEWED Original Note: Pharmacy Consult ? Medication Reconciliation Pharmacy has completed the medication reconciliation. Spoke with pt and he confirmed he was just discharged from 12/11 and there are no changes to his medications confirmed then; pt confirmed he was started on Cefuroxime and Doxycycline and stated he has 2 doses remaining of each medication.
[2024-12-25 20:43] VITALS: BP 110/55; PULSE 78; RESP 15; O2SAT 100
[2024-12-25 20:52] LABS: Appearance Urine Clear; Glucose Urine UA Negative (Negative); PH 7.5 (5.0-9.0); Specific Gravity - Urine 1.015 (1.005-1.025)
--- NOTE | 2024-12-25 21:07 | P.HPHOSP_ITS ---
History of Present Illness Date of Service: 12/25/24 Attending physician on admission: Kingsley Coreas Chief Complaint: fever Patient is a 29-year-old male with a past medical history significant for anxiety and recent hospitalization for Klebsiella bacteremia, who returned to the ED today due to fever starting this morning, 102.8 upon arrival. He also had a vagal syncope episode and triage. Heart rate has been elevated up to 150, responsive to IV fluids. Reports that he has been taking his antibiotics prescribed, doxycycline and cefuroxime, however he did miss a few days and reported taking doxycycline this morning. Reports a mild sore throat, mild shortness of breath, dizziness, nausea and headache. He also reports right upper quadrant tingling and states that he has a history of a cholecystectomy. No right upper quadrant pain or any abdominal pain, diarrhea or hematochezia. He denies any urinary symptoms including frequency, urgency or dysuria. During his previous hospitalization he was tested for HIV which was negative as well as tick panel which was also negative. He did recently go hiking in [place] and had oral sex with a new partners and all STI screening was negative. He did previously have a rash on the posterior right leg with a CRP of 16 and mild leukopenia of 3.9, ID suspected possible tick-borne illness, therefore was treated with doxycycline. His A/P CT at that time showed hepatomegaly with steatosis, splenomegaly, mild diffuse bowel wall mural thickening, prominent inguinal nodes. He denies hot flashes, confusion, muscle weakness, or fatigue. Review of Systems 2 Constitutional: Constitutional: Denies fatigue, Reports fever(s) and Reports headache(s) Eyes: Eyes: Denies change in vision ENT: Reports dizziness, Reports headache(s) and Denies neck pain Cardiovascular: Cardiovascular: Denies chest pain, Reports rapid heart rate, Denies lightheadedness and Reports dyspnea Respiratory: Respiratory: Denies cough, Reports dyspnea and Denies wheezing Gastrointestinal: Gastrointestinal: Denies abdominal pain, Denies diarrhea, Reports nausea and Denies vomiting Genitourinary: Genitourinary: Denies dysuria, Denies urinary frequency and Denies urinary urgency Musculoskeletal: Musculoskeletal: Denies myalgias, Denies muscle weakness and Denies neck pain Integumentary/Breasts: Skin/Breast: Denies rash Neurologic: Denies confusion, Reports dizziness and Reports headache(s) Psychiatric: Psychiatric: Denies confusion Endocrine: Endocrine: Denies fatigue and Denies flushing Hematologic/Lymphatic: Hematologic/Lymphatic: Denies easy bleeding and Denies easy bruising Allergic/Immunologic: Allergic/Immunologic: Denies wheezing PMFSH Medical History (Updated 12/25/24 @ 21:33 by Rosa Maria Howard PA-C) Bacteremia Vitamin D deficiency Thyroid nodule greater than or equal to 1.5 cm in diameter incidentally noted on imaging study Functional capacity: independent ambulation Social History Household Members: Spouse and Friend(s) Housing: House Do you presently have visiting nurse or other home services: No Patient Tobacco Use Status: Never used Tobacco Smoked in Last 30 Days: No Use of substances other than those prescribed or required for medical reasons: No Advance Directives: No Advance Directives Information Provided: No service: No Narrative: no smoking, etoh or drug use Meds Allergies Allergy/AdvReac Type Severity Reaction Status Date / Time No Known Allergies Allergy Verified 12/25/24 15:48 Active Medications: Current Medications Acetaminophen (Acetaminophen 325 Mg Tablet) 975 mg PO Q6H PRN PRN Reason: Pain, Mild 1-3,fever,headache Calcium Carbonate (Calcium Carbonate 750 Mg Tab.Chew) 750 mg PO Q4H PRN PRN Reason: Heartburn Enoxaparin Sodium (Enoxaparin Sodium 40 Mg/0.4 Ml Syringe) 40 mg SUBCUT Q24H [facility] Lactated Ringer's (Lr) 1,000 mls @ 999 mls/hr IV .Q1H1M [facility] Stop: 12/25/24 22:00 Magnesium Hydroxide (Milk Of Magnesia 30 Ml Oral.Susp) 30 ml PO DAILY PRN PRN Reason: Constipation Melatonin (Melatonin 3 Mg Tablet) 6 mg PO BEDTIME PRN PRN Reason: Insomnia Ondansetron HCl (Ondansetron Hcl 4 Mg/2 Ml Vial) 4 mg IVPUSH Q8H PRN PRN Reason: Nausea and Vomiting Sodium Chloride (0.9 % Sodium Chloride Flush 3 Ml Syringe) 3 ml IVFLUSH QSHIFT [facility] Home Medications ?Medication ?Instructions ?Recorded ?Confirmed ?Last Taken ?Type acetaminophen 650 mg 1,300 mg PO Q4H PRN Headache /Pain 12/09/24 12/25/24 Unknown History tablet,extended release ascorbic acid (vitamin C) 250 mg 250 mg PO DAILY 12/0912/25/24 12/25/24 History tablet (Vitamin C) bupropion HCl 150 mg 24 hr tablet, 150 mg PO DAILY 12/25/24 12/25/24 History extended release ibuprofen 200 mg tablet 400 mg PO Q6H PRN Headache/P ain 12/09/24 12/25/24 12/09/24 History magnesium 250 mg tablet 250 mg PO DAILY 12/09/2412/25/24 History vitamin B complex 1 tab PO DAILY 12/09/24/12/25/24 History zinc acetate 25 mg (zinc) capsule 25 mg PO DAILY 12/0912/25/24 12/09/24 History cefuroxime axetil 500 mg tablet 500 mg PO BID 12/25/24 12/25/24 12/25/24 History doxycycline monohydrate 100 mg 100 mg PO Q12H 12/25/24 12/25/24 12/25/24 History capsule Physical Exam 2 Vital Signs and Narrative: Vital Signs: Last Vital Signs Temp 100.6 F H 12/25/24 18:07 Pulse 78 12/25/24 20:43 Resp 15 12/25/24 20:43 BP 110/55 L 12/25/24 20:43 Pulse Ox 100 12/25/24 20:43 O2 Del Method Room Air 12/25/24 20:43 BMI result Body Mass Index 26.1 General: AOx3, no acute distress, appears pale Resp: CTA bilaterally, no wheezing, crackles, or rhonchi CVS: RRR +murmur GI: +BS, NT, no distention, negative adames's sign Skin: Warm, dry Neuro: Cranial nerves II-XII grossly intact bilaterally. Motor grossly intact bilaterally Extremities: No LE edema Psych: Appropriate affect Const: General: No confusion Orientation/consciousness: No confusion Neuro: General: No confusion Results Labs 12/25/24 16:07 12/25/24 16:07 Labs: Laboratory Results - last 24 hr 12/25/24 12/25/24 12/25/24 16:06 16:07 16:47 MCV 82.4 MCH 28.4 MCHC 34.5 RDW 12.4 Plt Count 241 D MPV 9.0 L Immature Gran % (Auto) 0.3 Neut % (Auto) 87.5 H Lymph % (Auto) 6.5 L [place] % (Auto) 4.9 Eos % (Auto) 0.3 Baso % (Auto) 0.5 Lymph # (Auto) 0.4 L [place] # (Auto) 0.3 Eos # (Auto) 0.0 Baso # (Auto) 0.0 Abs Immat Gran (auto) 0.02 Absolute Neuts (auto) 5.8 Absolute Nucleated RBC 0.000 Nucleated RBC % (auto) 0.0 ESR 7 Anion Gap 12 Estim Creat Clear Calc 134.4 Estimated GFR > 60 Random Glucose 103 Lactic Acid 1.1 Calcium 9.4 D Total Bilirubin 0.8 AST 19 ALT 24 Alkaline Phosphatase 65 C-Reactive Protein 2.45 H Total Protein 7.6 Albumin 4.9 Lipase 13 Procalcitonin 0.07 Urine Color Urine Appearance Urine pH Ur Specific [place] Urine Protein Urine Glucose (UA) Urine Ketones Urine Blood Urine Nitrite Ur Leukocyte Esterase Urine RBC Urine WBC Ur Squamous Epith Cells Urine Bacteria Hyaline Casts Influenza Type A (PCR) NEGATIVE Influenza Type B (PCR) NEGATIVE RSV RNA Qual (PCR) NEGATIVE SARS-CoV-2 RNA (RT-PCR) NEGATIVE S. pyogenes GrpA MARLON Negative 12/25/24 20:46 MCV MCH MCHC RDW Plt Count MPV Immature Gran % (Auto) Neut % (Auto) Lymph % (Auto) [place] % (Auto) Eos % (Auto) Baso % (Auto) Lymph # (Auto) [place] # (Auto) Eos # (Auto) Baso # (Auto) Abs Immat Gran (auto) Absolute Neuts (auto) Absolute Nucleated RBC Nucleated RBC % (auto) ESR Anion Gap Estim Creat Clear Calc Estimated GFR Random Glucose Lactic Acid Calcium Total Bilirubin AST ALT Alkaline Phosphatase C-Reactive Protein Total Protein Albumin Lipase Procalcitonin Urine Color Yellow Urine Appearance Clear Urine pH 7.5 Ur Specific [place] 1.015 Urine Protein Negative Urine Glucose (UA) Negative Urine Ketones Negative Urine Blood Negative Urine Nitrite Negative Ur Leukocyte Esterase Negative Urine RBC 0-2 Urine WBC 0-5 Ur Squamous Epith Cells 0-2 Urine Bacteria None Seen Hyaline Casts 0-2 Influenza Type A (PCR) Influenza Type B (PCR) RSV RNA Qual (PCR) SARS-CoV-2 RNA (RT-PCR) S. pyogenes GrpA MARLON Assessment and Plan (1) Fever of unknown origin: Status: Acute Plan Patient is a 29-year-old male with a past medical history significant for anxiety and recent hospitalization for Klebsiella bacteremia, who returned to the ED today due to fever starting this morning, 102.8 upon arrival. FUO - no leukocytosis, t max 102.8, tachycardic, no tachypnea, lactic acid 1.1, blood cultures x2 pending, no sepsis as infectious source has not been identified - CXR negative - UA pending - CRP 2.45, was 16.73 on 12/09 - COVID/flu/RSV negative - viral panel pending - ESR and procalcitonin normal - recent HIV and tick panel negative - given 3L IVF in ED, BP stable - given IV tylenol and ketoralac in ED - echo - MRCP - no abx at this time per ID recommendation (per ED doc) - ID consult - monitor CBC and BMP - admit for observation syncope - vagal syncope episode in triage - BPs stable - IVF as above - echo ordered anxiety - continue home meds med rec pending full code VTE prophy: lovenox Patient with fever of unknown origin, recent bacteremia, requiring admission for observation for further evaluation with ID consult. Quality Stroke Does the patient have a stroke diagnosis?: No VTE Prior VTE?: No VTE Risk Level:: Medical - moderate - high VTE Device Contraindication: Treatment Not Indicated VTE Drug Contraindication: N/A - Med Ordered
--- NOTE | 2024-12-25 21:58 | PC.NURSE ---
Pt being transferred to the [facility]. Report called to Manish. Pt came in after developed fevers after returning from [place]. Pt recently here on December 08 for evaluation of a fever. Pt had a thyroid biopsy on November 27 before leaving for [place]. Pt was d/c from hospital with po abx. Pt came back to hospital on 12/09 when blood cultures from 12/08 came back + for Klebsiella oxytocin There was also concern for a possible skin lesion potentially indicative of a tick-borne illness however panel was negative. He was discharged on December 11 with po abx x 10 days. Today, pt had fever 102.8 in triage. CXR negative. Blood cultures pending. EKG NSR
[2024-12-25 22:00] VITALS: BP 133/66; PULSE 84; RESP 14; TEMP 37.5; O2SAT 100
[2024-12-25 23:11] VITALS: TEMP 38.5
[2024-12-26 01:58] VITALS: TEMP 37.7
[2024-12-26 05:24] LABS: MANUAL DIFF FLAG NO
[2024-12-26 05:27] LABS: Hematocrit 35.2 % (42.0-52.0); Hemoglobin 11.9 g/dl (14.0-18.0); Imm Gran Abs Auto 0.00 X10*3/uL (0.00-0.03); Imm Gran Pct Auto 0.0 % (0.0-0.4); Lymphocytes Absolute Auto 1.0 X10*3/uL (1.2-4.9); Mean Corpuscular HGB Conc 33.8 g/dl (31.0-36.0); Mean Corpuscular Hemoglobin 28.3 pg (27.0-33.0); Mean Corpuscular Volume 83.8 fL (80.0-98.0); NRBC Abs Auto 0.000 X10*3/uL (0.0-0.012); NRBC Pct Auto 0.0 /100WBC (0.0-0.2); Platelet Count 169 X10*3/uL (160-400); Red Blood Count 4.20 X10*6/uL (4.60-5.80); White Blood Count 4.3 X10*3/uL (4.8-10.8)
[2024-12-26 05:32] VITALS: BP 109/47; PULSE 69; RESP 16; TEMP 37.8; TEMP 38.1; O2SAT 97
[2024-12-26 05:43] LABS: Anion Gap 9 (12-20); Blood Urea Nitrogen 8 mg/dL (9-16); Calcium 8.0 mg/dL (8.4-10.2); Carbon Dioxide 25 mmol/L (22-29); Chloride 109 mmol/L (96-108); Creatinine Clr Calc Pharmacy 181.6; Estimated Glomerular Filt Rate > 60; Potassium 3.7 mmol/L (3.3-5.1); Sodium 139 mmol/L (135-145)
--- NOTE | 2024-12-26 07:00 | CA_ITS ---
Transthoracic Echocardiogram Patient (Last, First, Middle): Anuj Duran, Gender: Male Date of : 1995 Age: 29 Procedure Date: 12/26/2024 Procedure Type: Transthoracic Echocardiogram Location: S3E Height: 195.58 cm Weight: 99.79 kg BSA: 2.33 m2 Heart Rate: 67 bpm BP: 109 / 47 mmHg Prehemmer: SAIMA BATISTA Referring MD: Rosa Maria Howard PA-C Junior Accountant: Angus Manzanares MD Symptoms: recent bacteremia ?murmur Study Quality: Fair ECG Rhythm: Sinus Conclusions: - 1. Normal LV systolic function with LV EF of 60-65% 2. No obvious vegetation seen on this study with normal cardiac valvular Dopplers 3. No gross pericardial effusion Findings Left Ventricle Normal left ventricular size, thickness, and systolic function. The visually estimated ejection fraction is between 60-65%. Diastolic function is normal for age. Right Ventricle Normal right ventricular cavity size and systolic function. Atria The left atrium is normal in size. Interatrial shunt cannot be excluded. The right atrium is likely dilated. Aortic Valve The aortic valve structure and function is likely normal. There is no aortic valve stenosis. There is no aortic valve regurgitation. Mitral Valve Normal mitral valve structure and function. There is trace mitral valve regurgitation. There is no mitral valve stenosis. Pulmonic Valve The pulmonic valve is likely normal. There is trace pulmonic valve regurgitation. Tricuspid Valve Likely normal tricuspid valve structure and function. There is mild tricuspid valve regurgitation. The right ventricular systolic pressure is not calculated. Indeterminate right atrial pressure. Great Vessels All visible segments of the aorta are normal in size. The pulmonary artery was not well visualized. Venous The inferior vena cava is mildly dilated. Pericardium/Pleural There is no evidence of pericardial effusion. Prior Study Comparison No prior study available for comparison. Measurements 2D Linear Measurements IVSd: 1.05 0.6-0.9/0.6-1.0 cm LVIDd: 5.09 3.9-5.3/4.2-5.9 cm LVIDd Index: 2.18 2.4-3.2/2.2-3.1 cm/m2 LVIDs: 2.65 2.0-3.6 cm LVPWd: 1.31 0.7-1.1 cm LA Diam: 3.10 2.7-3.8/3.0-4.0 cm LAIDs Index: 1.33 1.5-2.3 cm/m2 LV Mass: 292.89 67-162/88-224 g LV Mass Index: 125.70 43-95/49-115 g/m2 LVOT Diam: 2.50 3.0+(-)1.3 cm 2D Systolic Function EF 4C: 63.60 >55% EF 2C: 63.80 >55% EF BiP: 65.30 >55% Mitral Valve MV Pk E: 1.25 MV PK A: 0.67 MV Decel Time: 173.00 E/A: 1.90 E'Lateral: 16.60 E'Medial: 15.30 E/E' Med: 8.20 E/E' Lat: 7.50 PHT: 51.00 MVA PHT: 4.31 Decel Shannon: 7.24 Aortic Valve AoV Pk Ramon: 1.41 AoV Mn Ramon: 1.09 AoV VTI: 0.33 AoV Pk Grad: 8.00 Aov Mn Grad: 5.00 CECE Cont.VTI: 3.58 LVOT LVOT Pk Ramon: 1.14 LVOT Mn Ramon: 0.70 LVOT VTI: 0.24 LVOT Pk Grad: 5.00 LVOT Mn Grad: 2.00 LVOT Diam: 2.50 LVOT Area: 4.91 Diastolic Function MV Pk E: 1.25 MV Pk A: 0.67 E/A: 1.90 E'Medial: 15.30 E/E' Med: 8.20 E' Laterial: 16.60 E/E' Lat: 7.50 Right Ventricle TAPSE (mm): 26.40 TVS' Ramon: 13.60 Tricuspid Valve TR Pk Ramon: 2.02 TR Pk Grad: 16.00 Great Vessels Aorta Sinus of Valsalva: 3.70 2.0-3.5 cm Ao Asc: 3.20 2.1-3.4 cm Ao Arch: 2.90 Pulmonary Valve PV Pk Ramon: 1.06 Peak PV Grad: 4.00 Updated in Other Vendor System with Status of Final Angus Manzanares MD electronically signed on 12/26/2024 3:52:49 PM with status of Final
[2024-12-26] MEDS: 0.9 % Sodium Chloride Flush 3 ML SYRINGE IVFLUSH ×3 (07:36→20:12)
--- NOTE | 2024-12-26 07:39 | PC.NURSE ---
Addendum entered by Gretchen Shaikh RN 12/26/24 07:40: Patient is a 29-year-old male with a past medical history significant for anxiety and recent hospitalization for Klebsiella bacteremia, who returned to the ED today due to fever starting this morning, 102.8 upon arrival. He also had a vagal syncope episode and triage. Heart rate has been elevated up to 150, responsive to IV fluids. Reports that he has been taking his antibiotics prescribed, doxycycline and cefuroxime, however he did miss a few days and reported taking doxycycline this morning. Reports a mild sore throat, mild shortness of breath, dizziness, nausea and headache. During his previous hospitalization he was tested for HIV which was negative as well as tick panel which was also negative. He did recently go hiking in [place] and had oral sex with a new partners and all STI screening was negative. His A/P CT at that time showed hepatomegaly with steatosis, splenomegaly, mild diffuse bowel wall mural thickening, prominent inguinal nodes. Patient alert and oriented. Noted to continue to have intermittent fevers. Denies any pain at this time. Respirations even and non-labored. Abdomen soft, non-tender with positive bowel sounds. Positive pedal pulses with no edema noted. Original Note: Medical History Bacteremia Vitamin D deficiency Thyroid nodule greater than or equal to 1.5 cm in diameter incidentally noted on imaging study
--- NOTE | 2024-12-26 08:33 | MHC.CM.PN ---
PT LIVES WITH HIS S/O AND IS INDEPENDENT WITH CARE HE HAS NO DME AND NO SERVICES HCP ON FILE PCP: JANNETTE SALINAS OBSERVATION NOTICE DELIVERED DCP: HOME VIA PRIVATE TRANSPORT
[2024-12-26 09:05] VITALS: BP 134/61; PULSE 62; RESP 16; TEMP 36.4; O2SAT 98
[2024-12-26 09:15] VITALS: BMI 26.1
--- NOTE | 2024-12-26 09:40 | HO.PM.IMPN ---
Subjective Subjective Date of Service: 12/26/24 Interval History: fevers Physical Exam Vital Signs: Vital Signs: Last Vital Signs Temp 97.6 F 12/26/24 09:05 Pulse 62 12/26/24 09:05 Resp 16 12/26/24 09:05 BP 134/61 12/26/24 09:05 Pulse Ox 98 12/26/24 09:05 O2 Del Method Room Air 12/26/24 09:05 BMI result Body Mass Index 26.1 General: AO X 3, no acute distress Resp: CTA bilateral, no accessory muscles used CVS: S1,S2,RRR GI: soft, non tender, non distended Neuro: motor grossly intact, alert Psych: appropriate affect, appropriate insight Objective Data Active Medications Acetaminophen (Acetaminophen 325 Mg Tablet) 975 mg PO Q6H PRN PRN Reason: Pain, Mild 1-3,fever,headache Last Admin: 12/26/24 05:50 Dose: 975 mg Documented By: FERMIN Ascorbic Acid (Ascorbic Acid 250 Mg Tablet) 250 mg PO DAILY [facility] Bupropion HCl (Bupropion Hcl Xl 150 Mg Tab.Er.24h) 150 mg PO DAILY [facility] Calcium Carbonate (Calcium Carbonate 750 Mg Tab.Chew) 750 mg PO Q4H PRN PRN Reason: Heartburn Enoxaparin Sodium (Enoxaparin Sodium 40 Mg/0.4 Ml Syringe) 40 mg SUBCUT Q24H [facility] Last Admin: 12/25/24 21:58 Dose: Not Given Documented By: DOMINIK Non-Admin Reason: Patient Refused Magnesium Hydroxide (Milk Of Magnesia 30 Ml Oral.Susp) 30 ml PO DAILY PRN PRN Reason: Constipation Melatonin (Melatonin 3 Mg Tablet) 6 mg PO BEDTIME PRN PRN Reason: Insomnia Ondansetron HCl (Ondansetron Hcl 4 Mg/2 Ml Vial) 4 mg IVPUSH Q8H PRN PRN Reason: Nausea and Vomiting Sodium Chloride (0.9 % Sodium Chloride Flush 3 Ml Syringe) 3 ml IVFLUSH QSHIFT [facility] Last Admin: 12/26/24 07:36 Dose: 3 ml Documented By: SCIRPOS Labs 12/26/24 05:14 12/26/24 05:14 Labs: Laboratory Results - last 24 hr 12/25/24 12/25/24 12/25/24 16:06 16:07 16:47 MCV 82.4 MCH 28.4 MCHC 34.5 RDW 12.4 Plt Count 241 D MPV 9.0 L Immature Gran % (Auto) 0.3 Neut % (Auto) 87.5 H Lymph % (Auto) 6.5 L [place] % (Auto) 4.9 Eos % (Auto) 0.3 Baso % (Auto) 0.5 Lymph # (Auto) 0.4 L [place] # (Auto) 0.3 Eos # (Auto) 0.0 Baso # (Auto) 0.0 Abs Immat Gran (auto) 0.02 Absolute Neuts (auto) 5.8 Absolute Nucleated RBC 0.000 Nucleated RBC % (auto) 0.0 ESR 7 Anion Gap 12 Estim Creat Clear Calc 134.4 Estimated GFR > 60 Random Glucose 103 Lactic Acid 1.1 Calcium 9.4 D Total Bilirubin 0.8 AST 19 ALT 24 Alkaline Phosphatase 65 C-Reactive Protein 2.45 H Total Protein 7.6 Albumin 4.9 Lipase 13 Procalcitonin 0.07 Urine Color Urine Appearance Urine pH Ur Specific [place] Urine Protein Urine Glucose (UA) Urine Ketones Urine Blood Urine Nitrite Ur Leukocyte Esterase Urine RBC Urine WBC Ur Squamous Epith Cells Urine Bacteria Hyaline Casts Influenza Type A (PCR) NEGATIVE Influenza Type B (PCR) NEGATIVE RSV RNA Qual (PCR) NEGATIVE SARS-CoV-2 RNA (RT-PCR) NEGATIVE S. pyogenes GrpA MARLON Negative 12/25/24 12/26/24 20:46 05:14 MCV 83.8 MCH 28.3 MCHC 33.8 RDW 12.6 Plt Count 169 D MPV 9.4 Immature Gran % (Auto) 0.0 Neut % (Auto) 68.2 Lymph % (Auto) 22.5 [place] % (Auto) 8.4 Eos % (Auto) 0.2 Baso % (Auto) 0.7 Lymph # (Auto) 1.0 L [place] # (Auto) 0.4 Eos # (Auto) 0.0 Baso # (Auto) 0.0 Abs Immat Gran (auto) 0.00 Absolute Neuts (auto) 2.9 Absolute Nucleated RBC 0.000 Nucleated RBC % (auto) 0.0 ESR Anion Gap 9 L Estim Creat Clear Calc 181.6 Estimated GFR > 60 Random Glucose 97 Lactic Acid Calcium 8.0 L D Total Bilirubin AST ALT Alkaline Phosphatase C-Reactive Protein Total Protein Albumin Lipase Procalcitonin Urine Color Yellow Urine Appearance Clear Urine pH 7.5 Ur Specific [place] 1.015 Urine Protein Negative Urine Glucose (UA) Negative Urine Ketones Negative Urine Blood Negative Urine Nitrite Negative Ur Leukocyte Esterase Negative Urine RBC 0-2 Urine WBC 0-5 Ur Squamous Epith Cells 0-2 Urine Bacteria None Seen Hyaline Casts 0-2 Influenza Type A (PCR) Influenza Type B (PCR) RSV RNA Qual (PCR) SARS-CoV-2 RNA (RT-PCR) S. pyogenes GrpA MARLON Assessment and Plan (1) Fever of unknown origin: Status: Acute Plan 29M PMH possibly malignant thyroid nodule, anxiety, s/p cholecystectomy, recent hospitalization for klebsiella bacteremia presented with recurrent fevers, sore throat, skin lesions, syncope fever of unknown origin holding abx for now ID eval follow up CTs, mrcp, blood cultures, Autoimmune work up, viral studies, echo syncope vasovagal thyroid nodule plan for thyroid lobectomy outpatient dvt prophylaxis- lovenox full code reason for continued hospitalization:fuo work up Quality Stroke Does the patient have a stroke diagnosis?: No VTE Prior VTE?: No VTE Risk Level:: Medical - moderate - high VTE Device Contraindication: Treatment Not Indicated VTE Drug Contraindication: N/A - Med Ordered
[2024-12-26 09:48] LABS: Iron 20 mcg/dL (45-160); Percent Iron Saturation 9 % (15-50); Total Iron Binding Capacity 222 mcg/dL (228-428); Unsaturated Iron Binding 202 ug/dL
[2024-12-26 10:02] LABS: Ferritin 126 ng/mL (20-250)
[2024-12-26 10:43] LABS: Chlamydia pneumoniae PCR Not Detected (Not Detect.); Coronavirus 229E PCR Not Detected (Not Detect.); Coronavirus HKU1 PCR Not Detected (Not Detect.); Coronavirus NL63 PCR Not Detected (Not Detect.); Coronavirus OC43 PCR Not Detected (Not Detect.); RSV PCR Not Detected (Not Detect.); Rhino/Enterovirus PCR Detected (Not Detect.)
[2024-12-26] MEDS: buPROPion HCl XL 150 MG TAB.ER.24H PO (11:00)
[2024-12-26 11:02] LABS: Influenza A H1 PCR Not Detected (Not Detect.); Influenza A H1-2009 PCR Not Detected (Not Detect.); Influenza A H3 PCR Not Detected (Not Detect.); SARS-CoV-2 PCR Not Detected (Not Detect.)
[2024-12-26] MEDS: iohexoL 350 MG/ML 100 ML INFUS..BTL IV (12:25)
--- NOTE | 2024-12-26 15:03 | PM.GICN ---
History of Present Illness Data of Consult Service Date: 12/26/24 Requesting physician: Reagan Bray Primary Care Provider: Sandra Holley NP HPI Reason for consult: hepatosplenomegaly, mrcp with question of cbd stones, ?significance 29 YM with anxiety and recent hospitalization for Klebsiella bacteremia, seen at [facility] due to fever starting on 12/25/24, (102.8 upon arrival). He also had a vagal syncope episode in triage. Heart rate has been elevated up to 150, responsive to IV fluids. GI consulted after MRCP showed multiple hypointensities in the distal aspect worrisome for debris, sludge or stones LFTs were normal, Respiratory panel is positive for Rhinovirus infection Pt reports he was admitted to [facility] in 2019 with cholelithiasis and elevated LFTs. He underwent an ERCP with removal of CBD stone and a Lap Yessica a few days later. Pt reported that he has been taking his antibiotics as prescribed, doxycycline and cefuroxime, however he did miss a few days and reported taking doxycycline this morning. Reports a mild sore throat, mild shortness of breath, dizziness, nausea and headache, hot flashes, confusion, muscle weakness, or fatigue.. He also reports right upper quadrant tingling and states that he has a history of a cholecystectomy. Pt denies RUQ or abdominal pain, diarrhea or hematochezia, urinary symptoms including frequency, urgency or dysuria. During his previous hospitalization he was tested for HIV which was negative as well as tick panel which was also negative. He did recently go hiking in [place] and had oral sex with a new partners and all STI screening was negative. He did previously have a rash on the posterior right leg with a CRP of 16 and mild leukopenia of 3.9, ID suspected possible tick-borne illness, therefore was treated with doxycycline. 12/25/[address] SCAN SHOWED: 1. Minimal dependent atelectasis bilaterally. 2. Splenomegaly. Mild periportal edema which is a nonspecific finding. 3. Moderate amount of stool throughout the colon. 12/26/24 MRCP SHOWED: 1. Mildly dilated common bile duct (up to 0.8 cm) containing multiple small T2 hypointensities in the distal aspect, likely debris, sludge or stones. Consider ERCP for better evaluation. 2. Hepatosplenomegaly. Review of Systems Constitutional: Constitutional: Denies fatigue, Reports fever(s) and Reports headache(s) Eyes: Eyes: Denies change in vision ENT: Reports dizziness, Reports headache(s) and Denies neck pain Cardiovascular: Cardiovascular: Denies chest pain, Reports rapid heart rate, Denies lightheadedness and Reports dyspnea Respiratory: Respiratory: Denies cough, Reports dyspnea and Denies wheezing Gastrointestinal: Gastrointestinal: Denies abdominal pain, Denies diarrhea, Reports nausea and Denies vomiting Genitourinary: Genitourinary: Denies dysuria, Denies urinary frequency and Denies urinary urgency Musculoskeletal: Musculoskeletal: Denies myalgias, Denies muscle weakness and Denies neck pain Integumentary/Breasts: Skin/Breast: Denies rash Neurologic: Denies confusion, Reports dizziness and Reports headache(s) Psychiatric: Psychiatric: Denies confusion Endocrine: Endocrine: Denies fatigue and Denies flushing Hematologic/Lymphatic: Hematologic/Lymphatic: Denies easy bleeding and Denies easy bruising Allergic/Immunologic: Allergic/Immunologic: Denies wheezing PMFSH Past Medical History Medical History (Updated 12/26/24 @ 18:27 by Patience Ann MD) Bacteremia Vitamin D deficiency Thyroid nodule greater than or equal to 1.5 cm in diameter incidentally noted on imaging study Social History Social History Household Members: None Housing: Apartment Do you presently have visiting nurse or other home services: No Patient Tobacco Use Status: Never used Tobacco Smoked in Last 30 Days: No Patient Interested in Nicotine Replacement: No Patient Given Instructions on How to Stop Smoking: No Second Hand Smoke Exposure: No Use of substances other than those prescribed or required for medical reasons: No Currently Displaying Signs/Symptoms of Drug Intoxication Withdrawal: No Have you been hit, kicked, punched, or otherwise hurt by someone within the past year? If so, by whom?: No Do you feel safe in your current relationship?: Yes Is there a partner from a previous relationship who is making you feel unsafe now?: No Are you made to feel afraid or neglected: No Advance Directives: No Advance Directives Information Provided: No Advance Directives on File: No Do you have a plan to hurt others: No Plan Recently lost weight without trying: No Eating poorly because of decreased appetite: No Nutrition Risks: No Nutritional Risk Poor oral hygiene: No service: No Meds Allergies Allergy/AdvReac Type Severity Reaction Status Date / Time No Known Allergies Allergy Verified 12/25/24 15:48 Active Medications: Current Medications Acetaminophen (Acetaminophen 325 Mg Tablet) 975 mg PO Q6H PRN PRN Reason: Pain, Mild 1-3,fever,headache Last Admin: 12/26/24 05:50 Dose: 975 mg Ascorbic Acid (Ascorbic Acid 250 Mg Tablet) 250 mg PO DAILY [facility] Last Admin: 12/26/24 11:00 Dose: 250 mg Bupropion HCl (Bupropion Hcl Xl 150 Mg Tab.Er.24h) 150 mg PO DAILY [facility] Last Admin: 12/26/24 11:00 Dose: 150 mg Calcium Carbonate (Calcium Carbonate 750 Mg Tab.Chew) 750 mg PO Q4H PRN PRN Reason: Heartburn Enoxaparin Sodium (Enoxaparin Sodium 40 Mg/0.4 Ml Syringe) 40 mg SUBCUT Q24H [facility] Last Admin: 12/25/24 21:58 Dose: Not Given Magnesium Hydroxide (Milk Of Magnesia 30 Ml Oral.Susp) 30 ml PO DAILY PRN PRN Reason: Constipation Melatonin (Melatonin 3 Mg Tablet) 6 mg PO BEDTIME PRN PRN Reason: Insomnia Ondansetron HCl (Ondansetron Hcl 4 Mg/2 Ml Vial) 4 mg IVPUSH Q8H PRN PRN Reason: Nausea and Vomiting Sodium Chloride (0.9 % Sodium Chloride Flush 3 Ml Syringe) 3 ml IVFLUSH QSHIFT [facility] Last Admin: 12/26/24 07:36 Dose: 3 ml Home Medications ?Medication ?Instructions ?Recorded ?Confirmed ?Last Taken ?Type acetaminophen 650 mg 1,300 mg PO Q4H PRN Headache/Pain 12/09/24 12/25/24 Unknown History tablet,extended release ascorbic acid (vitamin C) 250 mg 250 mg PO DAILY 12/09/24 12/25/24 12/25/24 History tablet (Vitamin C) bupropion HCl 150 mg 24 hr tablet, 150 mg PO DAILY 12/09/24 12/25/24 12/25/24 History extended release ibuprofen 200 mg tablet 400 mg PO Q6H PRN Headache/Pain 12/09/24 12/25/24 12/09/24 History magnesium 250 mg tablet 250 mg PO DAILY 12/09/24 12/25/24 12/25/24 History vitamin B complex 1 tab PO DAILY 12/09/24 12/25/24 12/25/24 History zinc acetate 25 mg (zinc) capsule 25 mg PO DAILY 12/09/24 12/25/24 12/09/24 History cefuroxime axetil 500 mg tablet 500 mg PO BID 12/25/24 12/25/24 12/25/24 History doxycycline monohydrate 100 mg 100 mg PO Q12H 12/25/24 12/25/24 12/25/24 History capsule Physical Exam Vital Signs: Vital Signs: Last Vital Signs Temp 97.6 F 12/26/24 09:05 Pulse 62 12/26/24 09:05 Resp 16 12/26/24 09:05 BP 134/61 12/26/24 09:05 Pulse Ox 98 12/26/24 09:05 O2 Del Method Room Air 12/26/24 09:05 BMI result Body Mass Index 26.1 Const: General: No confusion Nutritional Appearance: average body habitus Orientation/consciousness: No confusion Limitations: no limitations HEENT: Head: Yes normal to inspection Ears: hearing grossly normal bilaterally Eyes: Sclerae: sclerae normal Pupils: Equal, round and reactive pupils present Neck: Neck: Yes normal visual inspection Chest: Chest palpation & inspection: normal inspection of the chest Resp: Effort & Inspection: normal respiratory effort Auscultation: clear to auscultation bilaterally Cardio: Palpation: normal PMI Rate: regular rate Rhythm: regular rhythm Heart sounds: S1 normal heart sound present, S2 normal heart sound present and no murmurs GI: Palpation (GI): Soft to palpation, nontender and No hepatosplenomegaly present Auscultation: normal bowel sounds Rectal Exam - Male: Yes deferred Skin: General skin exam: no rashes or lesions noted Neuro: General: No confusion Cranial nerves: Yes Equal, round and reactive pupils present Psych: Appearance: grossly normal Mental Status: mental status grossly normal Results Labs 12/26/24 05:14 12/26/24 05:14 Labs: Short CBC 12/25/24 12/26/24 Range/Units 16:07 05:14 WBC 6.6 4.3 L (4.8-10.8) X10*3/uL Hgb 14.5 D 11.9 L (14.0-18.0) g/dl Hct 42.0 D 35.2 L (42.0-52.0) % Plt Count 241 D 169 D (160-400) X10*3/uL BMP 12/25/24 12/26/24 16:07 05:14 Sodium 137 139 Potassium 3.9 3.7 Chloride 102 109 H Carbon Dioxide 27 25 BUN 13 8 L Creatinine 1.04 0.77 Calcium 9.4 D 8.0 L D Liver Function 12/25/24 Range/Units 16:07 Total Bilirubin 0.8 (0.0-1.0) mg/dL AST 19 (5-37) U/L ALT 24 (0-40) U/L Alkaline Phosphatase 65 (39-117) U/L Albumin 4.9 (3.5-5.0) g/dL Urine 12/25/24 Range/Units 20:46 Urine Color Yellow Urine Appearance Clear Urine pH 7.5 (5.0-9.0) Ur Specific Burton 1.015 (1.005-1.025) Urine Protein Negative (Neg-Trace) mg/dL Urine Glucose (UA) Negative (Negative) mg/dL Assessment and Plan (1) Choledocholithiasis: Status: Acute Plan 29 YM with anxiety and recent hospitalization for Klebsiella bacteremia, admitted to [facility] due to fever starting on 12/25/24, (102.8 upon arrival). He also had a vagal syncope episode in triage. Heart rate has been elevated up to 150, responsive to IV fluids. GI consulted after MRCP showed multiple hypodensities in the distal aspect worrisome for debris, sludge or stones LFTs were normal, Respiratory panel is positive for Rhinovirus infection Pt reports he was admitted to [facility] in 2019 with cholelithiasis and elevated LFTs. He underwent an ERCP with removal of CBD stone and a Lap Yessica a few days later. Reports a mild sore throat, mild shortness of breath, dizziness, nausea and headache, hot flashes, confusion, muscle weakness, or fatigue.. He also reports right upper quadrant tingling and states that he has a history of a cholecystectomy. 12/26/24 MRCP SHOWED: 1. Mildly dilated common bile duct (up to 0.8 cm) containing multiple small T2 hypointensities in the distal aspect, likely debris, sludge or stones. Consider ERCP for better evaluation. 2. Hepatosplenomegaly. RECOMMENDATIONS: 1. IV antibiotics 2. Pt needs an ERCP for removal of CBD stomes - tentatively scheduled on 12/30/24 If pt develops high fever or elevated LFTs, may need to be transferred to a tertiary care facility for ERCP over the weekend. Procedures Date of Service Date of Service: 12/26/24
[2024-12-26 15:48] VITALS: BP 118/60; PULSE 73; RESP 16; TEMP 37.6; O2SAT 99
[2024-12-26 18:48] VITALS: TEMP 37.3
[2024-12-26 20:00] VITALS: BP 122/57; PULSE 75; RESP 18; TEMP 36.9; O2SAT 99
--- NOTE | 2024-12-26 22:40 | MHC.PIE ---
p; pt c/o itchiness to fingers - tingle like. note; prn benadrly iv q6 given at 1840 i; dr aguilar notified - ok to give early dose p; pt now reports blister like areas to fingers and mouth areas. friend in room ? hydrocortisone cream? i; dr aguilar notified, pictures taken e; will cont to monitor
--- NOTE | 2024-12-27 03:02 | HO.SKINPHOTO ---
Location: mouth/ip Category:rash? blister? Stage: Length: Width: Depth: cm Location: paulo fingers Category:rash? blister like? Stage: Length: Width: Depth: cm Location: Category: Stage: Length: Width: Depth: cm Location: Category: Stage: Length: Width: Depth: cm Location: Category: Stage: Length: Width: Depth: cm Location: Category: Stage: Length: Width: Depth: cm
[2024-12-27 03:55] VITALS: BP 115/65; PULSE 59; RESP 16; TEMP 37.2; O2SAT 97
[2024-12-27 06:23] LABS: MANUAL DIFF FLAG NO
[2024-12-27 06:26] LABS: Hematocrit 35.5 % (42.0-52.0); Hemoglobin 12.5 g/dl (14.0-18.0); Imm Gran Abs Auto 0.01 X10*3/uL (0.00-0.03); Imm Gran Pct Auto 0.3 % (0.0-0.4); Lymphocytes Absolute Auto 1.0 X10*3/uL (1.2-4.9); Mean Corpuscular HGB Conc 35.2 g/dl (31.0-36.0); Mean Corpuscular Hemoglobin 29.1 pg (27.0-33.0); Mean Corpuscular Volume 82.8 fL (80.0-98.0); NRBC Abs Auto 0.000 X10*3/uL (0.0-0.012); NRBC Pct Auto 0.0 /100WBC (0.0-0.2); Platelet Count 158 X10*3/uL (160-400); Red Blood Count 4.29 X10*6/uL (4.60-5.80); White Blood Count 3.3 X10*3/uL (4.8-10.8)
[2024-12-27 06:41] LABS: Anion Gap 13 (12-20); Blood Urea Nitrogen 7 mg/dL (9-16); Calcium 8.0 mg/dL (8.4-10.2); Carbon Dioxide 25 mmol/L (22-29); Chloride 108 mmol/L (96-108); Creatinine Clr Calc Pharmacy 177.0; Estimated Glomerular Filt Rate > 60; Potassium 3.9 mmol/L (3.3-5.1); Sodium 142 mmol/L (135-145)
[2024-12-27 07:44] VITALS: BP 129/62; PULSE 75; RESP 16; TEMP 36.5; O2SAT 98
--- NOTE | 2024-12-27 09:39 | HO.PM.IMPN ---
Subjective Subjective Date of Service: 12/27/24 Interval History: rash spreading, itchy, painful Physical Exam Exam: Exam: Vital Signs: Vital Signs: Last Vital Signs Temp 97.7 F 12/27/24 07:44 Pulse 75 12/27/24 07:44 Resp 16 12/27/24 07:44 BP 129/62 12/27/24 07:44 Pulse Ox 98 12/27/24 07:44 O2 Del Method Room Air 12/27/24 07:44 BMI result Body Mass Index 26.1 Objective Data Active Medications Acetaminophen (Acetaminophen 325 Mg Tablet) 975 mg PO Q6H PRN PRN Reason: Pain, Mild 1-3,fever,headache Last Admin: 12/26/24 18:44 Dose: 975 mg Documented By: ADA Ascorbic Acid (Ascorbic Acid 250 Mg Tablet) 250 mg PO DAILY [facility] Last Admin: 12/26/24 11:00 Dose: 250 mg Documented By: ADA Bupropion HCl (Bupropion Hcl Xl 150 Mg Tab.Er.24h) 150 mg PO DAILY [facility] Last Admin: 12/26/24 11:00 Dose: 150 mg Documented By: ADA Calcium Carbonate (Calcium Carbonate 750 Mg Tab.Chew) 750 mg PO Q4H PRN PRN Reason: Heartburn Diphenhydramine HCl (Diphenhydramine Hcl 50 Mg/Ml Vial) 25 mg IVPUSH Q6H PRN PRN Reason: pruritis Last Admin: 12/26/24 22:33 Dose: 25 mg Documented By: ZEB Enoxaparin Sodium (Enoxaparin Sodium 40 Mg/0.4 Ml Syringe) 40 mg SUBCUT Q24H [facility] Last Admin: 12/26/24 20:13 Dose: Not Given Documented By: ZEB Non-Admin Reason: Patient Refused Magnesium Hydroxide (Milk Of Magnesia 30 Ml Oral.Susp) 30 ml PO DAILY PRN PRN Reason: Constipation Melatonin (Melatonin 3 Mg Tablet) 6 mg PO BEDTIME PRN PRN Reason: Insomnia Ondansetron HCl (Ondansetron Hcl 4 Mg/2 Ml Vial) 4 mg IVPUSH Q8H PRN PRN Reason: Nausea and Vomiting Sodium Chloride (0.9 % Sodium Chloride Flush 3 Ml Syringe) 3 ml IVFLUSH QSHIFT [facility] Last Admin: 12/26/24 20:12 Dose: 3 ml Documented By: ZEB Labs 12/27/24 06:12 12/27/24 06:12 Labs: Laboratory Results - last 24 hr 12/25/24 12/26/24 12/27/24 17:34 09:14 06:12 MCV 82.8 MCH 29.1 MCHC 35.2 RDW 12.9 Plt Count 158 L MPV 9.1 L Immature Gran % (Auto) 0.3 Neut % (Auto) 56.1 Lymph % (Auto) 30.8 Fisher % (Auto) 10.1 Eos % (Auto) 2.1 Baso % (Auto) 0.6 Lymph # (Auto) 1.0 L Fisher # (Auto) 0.3 Eos # (Auto) 0.1 Baso # (Auto) 0.0 Abs Immat Gran (auto) 0.01 Absolute Neuts (auto) 1.8 L Absolute Nucleated RBC 0.000 Nucleated RBC % (auto) 0.0 Anion Gap 13 Estim Creat Clear Calc 177.0 Estimated GFR > 60 Random Glucose 97 Calcium 8.0 L Iron 20 L TIBC 222 L % Saturation 9 L Unsat Iron Binding 202 Ferritin 126 Rheumatoid Factor < 13.0 Respiratory Panel [place] See Note Adenovirus (Rapid PCR) Not Detected B.pert (TEM-PCR) Not Detected B.parapertussis DNA PCR Not Detected C. pneumoniae DNA (PCR) Not Detected Coronavirus OC43 (PCR) Not Detected Coronavirus HKU1 (PCR) Not Detected Coronavirus 229E (PCR) Not Detected Coronavirus NL63 (PCR) Not Detected Monoscreen Negative Human Metapneumovir PCR Not Detected Influenza A (RT-PCR) Not Detected Influenza A (H1) PCR Not Detected Influ A (H1/09) PCR Not Detected Influenza A (H3) PCR Not Detected Influenza B (RT-PCR) Not Detected M. pneumoniae (PCR) Not Detected Parainfluenza 1 (PCR) Not Detected Parainfluenza 2 (PCR) Not Detected Parainfluenza 3 (PCR) Not Detected Parainfluenza 4 (PCR) Not Detected RSV (PCR) Not Detected Entero/Rhino (PCR) Detected A SARS-CoV-2 RNA (RT-PCR) Not Detected Microbiology Microbiology Results: Microbiology 12/25/24 16:25 Blood Culture - Preliminary Blood - Venous No growth after 24 hours. 12/25/24 16:07 Blood Culture - Preliminary Blood - Venous No growth after 24 hours. Assessment and Plan (1) Fever of unknown origin: Status: Acute Plan 29M PMH possibly malignant thyroid nodule, anxiety, s/p cholecystectomy, recent hospitalization for klebsiella bacteremia presented with recurrent fevers, sore throat, skin lesions, syncope fever of unknown origin holding abx for now ID eval MRCP with possible sludge - plan for ERCP negative blood cultures, Autoimmune work up, viral studies with rhinovirus echo normal syncope vasovagal thyroid nodule plan for thyroid lobectomy outpatient dvt prophylaxis- lovenox full code reason for continued hospitalization:fuo work up Quality Stroke Does the patient have a stroke diagnosis?: No VTE Prior VTE?: No VTE Risk Level:: Medical - moderate - high VTE Device Contraindication: Treatment Not Indicated VTE Drug Contraindication: N/A - Med Ordered
[2024-12-27] MEDS: buPROPion HCl XL 150 MG TAB.ER.24H PO (09:51)
[2024-12-27] MEDS: 0.9 % Sodium Chloride Flush 3 ML SYRINGE IVFLUSH ×3 (09:53→22:36)
--- NOTE | 2024-12-27 12:55 | W.PM.IDCN ---
History of Present Illness Data of Consult Service Date: 12/27/24 Requesting physician: Reagan Bray Primary Care Provider: Sandra Holley NP HPI Reason for consult: fever of unknown origin,rash He presents with rash on palms,feverish feelings and mild abdominal RUQ discomfort last 2-3 days. He had Klebsiella oxytoca bacteremia last visit and had two more days left of cephalosporin and Doxycycline. He has sore throat ,rash over body and hands. Review of Systems Review of Systems: Yes all other systems are reviewed and are negative PMFSH Past Medical History Medical History Bacteremia Vitamin D deficiency Thyroid nodule greater than or equal to 1.5 cm in diameter incidentally noted on imaging study Family History Family history: reviewed and not pertinent Social History Social History Household Members: None Housing: Apartment Do you presently have visiting nurse or other home services: No Patient Tobacco Use Status: Never used Tobacco Smoked in Last 30 Days: No Patient Interested in Nicotine Replacement: No Patient Given Instructions on How to Stop Smoking: No Second Hand Smoke Exposure: No Use of substances other than those prescribed or required for medical reasons: No Currently Displaying Signs/Symptoms of Drug Intoxication Withdrawal: No Have you been hit, kicked, punched, or otherwise hurt by someone within the past year? If so, by whom?: No Do you feel safe in your current relationship?: Yes Is there a partner from a previous relationship who is making you feel unsafe now?: No Are you made to feel afraid or neglected: No Advance Directives: No Advance Directives Information Provided: No Advance Directives on File: No Do you have a plan to hurt others: No Plan Recently lost weight without trying: No Eating poorly because of decreased appetite: No Nutrition Risks: No Nutritional Risk Poor oral hygiene: No service: No Meds Allergies Allergy/AdvReac Type Severity Reaction Status Date / Time No Known Allergies Allergy Verified 12/25/24 15:48 Active Medications: Current Medications Acetaminophen (Acetaminophen 325 Mg Tablet) 975 mg PO Q6H PRN PRN Reason: Pain, Mild 1-3,fever,headache Last Admin: 12/26/24 18:44 Dose: 975 mg Ascorbic Acid (Ascorbic Acid 250 Mg Tablet) 250 mg PO DAILY [facility] Last Admin: 12/27/24 09:51 Dose: 250 mg Bupropion HCl (Bupropion Hcl Xl 150 Mg Tab.Er.24h) 150 mg PO DAILY [facility] Last Admin: 12/27/24 09:51 Dose: 150 mg Calcium Carbonate (Calcium Carbonate 750 Mg Tab.Chew) 750 mg PO Q4H PRN PRN Reason: Heartburn Diphenhydramine HCl (Diphenhydramine Hcl 50 Mg/Ml Vial) 25 mg IVPUSH Q6H PRN PRN Reason: pruritis Last Admin: 12/26/24 22:33 Dose: 25 mg Enoxaparin Sodium (Enoxaparin Sodium 40 Mg/0.4 Ml Syringe) 40 mg SUBCUT Q24H [facility] On Hold: 12/27/24 12:30 Last Admin: 12/26/24 20:13 Dose: Not Given Magnesium Hydroxide (Milk Of Magnesia 30 Ml Oral.Susp) 30 ml PO DAILY PRN PRN Reason: Constipation Melatonin (Melatonin 3 Mg Tablet) 6 mg PO BEDTIME PRN PRN Reason: Insomnia Ondansetron HCl (Ondansetron Hcl 4 Mg/2 Ml Vial) 4 mg IVPUSH Q8H PRN PRN Reason: Nausea and Vomiting Sodium Chloride (0.9 % Sodium Chloride Flush 3 Ml Syringe) 3 ml IVFLUSH QSHIFT [facility] Last Admin: 12/27/24 09:53 Dose: 3 ml Home Medications ?Medication ?Instructions ?Recorded ?Confirmed ?Last Taken ?Type acetaminophen 650 mg 1,300 mg PO Q4H PRN Headache/Pain 12/09/24 12/25/24 Unknown History tablet,extended release ascorbic acid (vitamin C) 250 mg 250 mg PO DAILY 12/09/24 12/25/24 12/25/24 History tablet (Vitamin C) bupropion HCl 150 mg 24 hr tablet, 150 mg PO DAILY 12/09/24 12/25/24 12/25/24 History extended release ibuprofen 200 mg tablet 400 mg PO Q6H PRN Headache/Pain 12/09/24 12/25/24 12/09/24 History magnesium 250 mg tablet 250 mg PO DAILY 12/09/24 12/25/24 12/25/24 History vitamin B complex 1 tab PO DAILY 12/09/24 12/25/24 12/25/24 History zinc acetate 25 mg (zinc) capsule 25 mg PO DAILY 12/09/24 12/25/24 12/09/24 History cefuroxime axetil 500 mg tablet 500 mg PO BID 12/25/24 12/25/24 12/25/24 History doxycycline monohydrate 100 mg 100 mg PO Q12H 12/25/24 12/25/24 12/25/24 History capsule Physical Exam Vital Signs: Vital Signs: Last Vital Signs Temp 97.7 F 12/27/24 07:44 Pulse 75 12/27/24 07:44 Resp 16 12/27/24 07:44 BP 129/62 12/27/24 07:44 Pulse Ox 98 12/27/24 07:44 O2 Del Method Room Air 12/27/24 07:44 BMI result Body Mass Index 26.1 Const: General: cooperative HEENT: Head: Yes normal to inspection Face and sinus: Yes normal facial exam Mouth: Normal oral and palatal mucosa present Teeth and gingiva: dentition normal Eyes: General: appearance normal, both eyes and all related structures Pupils: Equal, round and reactive pupils present Resp: Effort & Inspection: normal respiratory effort Cardio: Rate: regular rate Rhythm: regular rhythm GI: Palpation (GI): Soft to palpation and nontender : General: Yes no CVA tenderness Back/Spine/Pelvis: Back: no CVA tenderness Skin: Other: small macuopapular lesions chest abdomen and palms also face,mouth,throat (not itchy) General skin exam: no rashes or lesions noted Neuro: General: moves all extremities Cranial nerves: Yes Equal, round and reactive pupils present Extrem: General: Yes normal to inspection Psych: Appearance: grossly normal Results Labs 12/27/24 06:12 12/27/24 06:12 Labs: Short CBC 12/27/24 Range/Units 06:12 WBC 3.3 L (4.8-10.8) X10*3/uL Hgb 12.5 L (14.0-18.0) g/dl Hct 35.5 L (42.0-52.0) % Plt Count 158 L (160-400) X10*3/uL BMP 12/27/24 06:12 Sodium 142 Potassium 3.9 Chloride 108 Carbon Dioxide 25 BUN 7 L Creatinine 0.79 Calcium 8.0 L Microbiology Microbiology Results: Microbiology 12/25/24 16:25 Blood - Venous Blood Culture - Preliminary No growth after 24 hours. 12/25/24 16:07 Blood - Venous Blood Culture - Preliminary No growth after 24 hours. Assessment and Plan (1) Rash: Status: Acute (2) Fever of unknown origin: Status: Acute Plan He has possible autoimmune or infectious or drug caused rash ( most likely cephalosporin). He also has rhinovirus. Agree with holding antibiotics for now and if bacteremic start piperacillin/tazobactam,not cephalosporin. Agree with ERCP per GI on Monday. Can consider biopsy rash if persists and/or steroids.
--- NOTE | 2024-12-27 13:16 | PC.NURSE ---
Dr Pugh collected and labeled a punch Bx . Specimen sent to the lab per his request
--- NOTE | 2024-12-27 13:20 | PM.CNGS ---
History of Present Illness Consult details Consult date: 12/27/24 Requesting physician: Reagan Bray Narrative: Male patient presenting to the emergency department with complaints of fever of 102.8, tachycardia, and a syncopal episode found to have a rash involving the palms of the hand and soles of the feet within the past 24 hours. He has a recent history of Klebsiella bacteremia for which she has recently hospitalized. He was tested for HIV and tick-borne illnesses. Surgical consultation was requested for biopsy of 1 of the skin lesion to assist in diagnosis. Review of Systems Review of Systems: Yes all other systems are reviewed and are negative PMFSH Past Medical History Medical History Bacteremia Vitamin D deficiency Thyroid nodule greater than or equal to 1.5 cm in diameter incidentally noted on imaging study Family History Family history: reviewed and not pertinent Social History Social History Household Members: None Housing: Apartment Do you presently have visiting nurse or other home services: No Patient Tobacco Use Status: Never used Tobacco Smoked in Last 30 Days: No Patient Interested in Nicotine Replacement: No Patient Given Instructions on How to Stop Smoking: No Second Hand Smoke Exposure: No Use of substances other than those prescribed or required for medical reasons: No Currently Displaying Signs/Symptoms of Drug Intoxication Withdrawal: No Have you been hit, kicked, punched, or otherwise hurt by someone within the past year? If so, by whom?: No Do you feel safe in your current relationship?: Yes Is there a partner from a previous relationship who is making you feel unsafe now?: No Are you made to feel afraid or neglected: No Advance Directives: No Advance Directives Information Provided: No Advance Directives on File: No Do you have a plan to hurt others: No Plan Recently lost weight without trying: No Eating poorly because of decreased appetite: No Nutrition Risks: No Nutritional Risk Poor oral hygiene: No service: No Meds Allergies Allergy/AdvReac Type Severity Reaction Status Date / Time No Known Allergies Allergy Verified 12/25/24 15:48 Active Medications: Current Medications Acetaminophen (Acetaminophen 325 Mg Tablet) 975 mg PO Q6H PRN PRN Reason: Pain, Mild 1-3,fever,headache Last Admin: 12/26/24 18:44 Dose: 975 mg Ascorbic Acid (Ascorbic Acid 250 Mg Tablet) 250 mg PO DAILY [facility] Last Admin: 12/27/24 09:51 Dose: 250 mg Bupropion HCl (Bupropion Hcl Xl 150 Mg Tab.Er.24h) 150 mg PO DAILY [facility] Last Admin: 12/27/24 09:51 Dose: 150 mg Calcium Carbonate (Calcium Carbonate 750 Mg Tab.Chew) 750 mg PO Q4H PRN PRN Reason: Heartburn Diphenhydramine HCl (Diphenhydramine Hcl 50 Mg/Ml Vial) 25 mg IVPUSH Q6H PRN PRN Reason: pruritis Last Admin: 12/26/24 22:33 Dose: 25 mg Enoxaparin Sodium (Enoxaparin Sodium 40 Mg/0.4 Ml Syringe) 40 mg SUBCUT Q24H [facility] On Hold: 12/27/24 12:30 Last Admin: 12/26/24 20:13 Dose: Not Given Magnesium Hydroxide (Milk Of Magnesia 30 Ml Oral.Susp) 30 ml PO DAILY PRN PRN Reason: Constipation Melatonin (Melatonin 3 Mg Tablet) 6 mg PO BEDTIME PRN PRN Reason: Insomnia Ondansetron HCl (Ondansetron Hcl 4 Mg/2 Ml Vial) 4 mg IVPUSH Q8H PRN PRN Reason: Nausea and Vomiting Sodium Chloride (0.9 % Sodium Chloride Flush 3 Ml Syringe) 3 ml IVFLUSH QSHIFT [facility] Last Admin: 12/27/24 09:53 Dose: 3 ml Home Medications ?Medication ?Instructions ?Recorded ?Confirmed ?Last Taken ?Type acetaminophen 650 mg 1,300 mg PO Q4H PRN Headache/Pain 12/09/24 12/25/24 Unknown History tablet,extended release ascorbic acid (vitamin C) 250 mg 250 mg PO DAILY 12/09/24 12/25/24 12/25/24 History tablet (Vitamin C) bupropion HCl 150 mg 24 hr tablet, 150 mg PO DAILY 12/09/24 12/25/24 12/25/24 History extended release ibuprofen 200 mg tablet 400 mg PO Q6H PRN Headache/Pain 12/09/24 12/25/24 12/09/24 History magnesium 250 mg tablet 250 mg PO DAILY 12/09/24 12/25/24 12/25/24 History vitamin B complex 1 tab PO DAILY 07/12/25/24 12/25/24 History zinc acetate 25 mg (zinc) capsule 25 mg PO DAILY 12/09/24 12/25/24 12/09/24 History cefuroxime axetil 500 mg tablet 500 mg PO BID 12/25/24 12/25/24 12/25/24 History doxycycline monohydrate 100 mg 100 mg PO Q12H 12/25/24 12/25/24 12/25/24 History capsule Physical Exam Vital Signs: Vital Signs: Last Vital Signs Temp 97.7 F 12/27/24 07:44 Pulse 75 12/27/24 07:44 Resp 16 12/27/24 07:44 BP 129/62 12/27/24 07:44 Pulse Ox 98 12/27/24 07:44 O2 Del Method Room Air 12/27/24 07:44 BMI result Body Mass Index 26.1 Const: General: cooperative and no acute distress Nutritional Appearance: well nourished Orientation/consciousness: patient oriented x3 Limitations: no limitations HEENT: Head: Yes normocephalic and Yes atraumatic Ears: hearing grossly normal bilaterally Resp: Effort & Inspection: normal respiratory effort, no audible wheezes, no cough and no respiratory distress Cardio: Jugular venous distension: no JVD GI: Inspection: Yes normal to inspection Skin: Other: Warm, dry, rash involving the palm and soles, to a lesser degree on abdomen. Neuro: General: patient oriented x3 Extrem: Other: As noted above General: Yes no clubbing, cyanosis or edema Results Labs 12/27/24 06:12 12/27/24 06:12 Labs: Abnormal lab results 12/27/24 Range/Units 06:12 WBC 3.3 L (4.8-10.8) X10*3/uL RBC 4.29 L (4.60-5.80) X10*6/uL Hgb 12.5 L (14.0-18.0) g/dl Hct 35.5 L (42.0-52.0) % Plt Count 158 L (160-400) X10*3/uL MPV 9.1 L (9.4-12.4) fL Lymph # (Auto) 1.0 L (1.2-4.9) X10*3/uL Absolute Neuts (auto) 1.8 L (2.0-8.3) x10*3/uL BUN 7 L (9-16) mg/dL Calcium 8.0 L (8.4-10.2) mg/dL Short CBC 12/27/24 Range/Units 06:12 WBC 3.3 L (4.8-10.8) X10*3/uL Hgb 12.5 L (14.0-18.0) g/dl Hct 35.5 L (42.0-52.0) % Plt Count 158 L (160-400) X10*3/uL BMP 12/27/24 06:12 Sodium 142 Potassium 3.9 Chloride 108 Carbon Dioxide 25 BUN 7 L Creatinine 0.79 Calcium 8.0 L Urine 12/25/24 Range/Units 20:46 Urine Color Yellow Urine Appearance Clear Urine pH 7.5 (5.0-9.0) Ur Specific [place] 1.015 (1.005-1.025) Urine Protein Negative (Neg-Trace) mg/dL Urine Glucose (UA) Negative (Negative) mg/dL All other labs normal. Assessment and Plan (1) Rash: Status: Acute Plan 29-year-old male patient with a rash of unknown etiology. Surgical consultation requested for punch biopsy of the skin lesion. After discussion of the procedure, risks and alternatives, he consents to a left hand skin biopsy which will be performed at the bedside. Procedures Date of Service Date of Service: 12/27/24
--- NOTE | 2024-12-27 13:26 | P.OP_ITS ---
Operative Note Operative Note Date of Service: 12/27/24 Narrative: Preoperative diagnosis: Rash bilateral palms and soles Postoperative diagnosis: Same Procedure: Punch biopsy rash left hypothenar eminence Surgeon: Isidro Lloyd MD Certified Substance Abuse Counselor: Anesthesia: Local lidocaine 1% plain Indications for procedure: 29-year-old with a 24 hour history of rash involving the palms and the soles Operative findings: As noted above Specimen: 2 mm punch biopsy Estimated blood loss: Less than 2 mL Complications: None Procedure details: Procedure was performed at the bedside. After assuring informed consent and confirming the site of procedure, the patient's left palm was prepped with Betadine and draped in a sterile fashion. Local anesthesia was then infiltrated over the skin lesion located in the thenar eminence. A 2 mm punch biopsy was performed at the edge of the skin lesion. The lesion was then sent to pathology for further examination. Pressure was held to maintain hemostasis. Sterile dressings were then applied. The patient tolerated the procedure well and remained stable.
[2024-12-27] MEDS: Throat Lozenge, Medicated LOZENGE 1 LOZENGE MUCOUS MEM ×2 (13:56→18:48)
--- NOTE | 2024-12-27 15:32 | MHC.CM.PN ---
Per MD rounds patient is not medically cleared, no discharge today. Patient with fever labs pending. DP home self care. Patient will arrange for a ride home.
[2024-12-27 15:53] VITALS: BP 122/63; PULSE 65; RESP 16; TEMP 36.2; O2SAT 97
[2024-12-27 16:33] LABS: CMV DNA Qn PCR NOT DETECTED Log IU/mL (NOT DETECTED)
--- NOTE | 2024-12-27 18:46 | HO.SKINPHOTO ---
Location: Foot cleaned with normal saline, pat dry, cleaned with iodine swab, gauze and gauze wrap applied. Location: Right 3rd toe has small cut noted, area cleaned with normal saline and pat dry. Discoloration on right 5th toe.
[2024-12-27 19:26] VITALS: BP 135/65; PULSE 75; RESP 18; TEMP 35.9; O2SAT 100
[2024-12-28] MEDS: Throat Lozenge, Medicated LOZENGE 1 LOZENGE MUCOUS MEM ×2 (01:42→16:10)
[2024-12-28 03:29] VITALS: BP 118/61; PULSE 64; RESP 16; TEMP 36.1; O2SAT 98
[2024-12-28 06:20] LABS: MANUAL DIFF FLAG NO
[2024-12-28 06:39] LABS: Hematocrit 36.7 % (42.0-52.0); Hemoglobin 12.7 g/dl (14.0-18.0); Imm Gran Abs Auto 0.01 X10*3/uL (0.00-0.03); Imm Gran Pct Auto 0.3 % (0.0-0.4); Lymphocytes Absolute Auto 1.1 X10*3/uL (1.2-4.9); Mean Corpuscular HGB Conc 34.6 g/dl (31.0-36.0); Mean Corpuscular Hemoglobin 28.6 pg (27.0-33.0); Mean Corpuscular Volume 82.7 fL (80.0-98.0); NRBC Abs Auto 0.000 X10*3/uL (0.0-0.012); NRBC Pct Auto 0.0 /100WBC (0.0-0.2); Platelet Count 197 X10*3/uL (160-400); Red Blood Count 4.44 X10*6/uL (4.60-5.80); White Blood Count 3.3 X10*3/uL (4.8-10.8)
[2024-12-28 06:54] LABS: Anion Gap 13 (12-20); Blood Urea Nitrogen 7 mg/dL (9-16); Calcium 8.9 mg/dL (8.4-10.2); Carbon Dioxide 27 mmol/L (22-29); Chloride 106 mmol/L (96-108); Creatinine Clr Calc Pharmacy 186.4; Estimated Glomerular Filt Rate > 60; Potassium 4.0 mmol/L (3.3-5.1); Sodium 142 mmol/L (135-145)
[2024-12-28 07:41] VITALS: BP 116/62; PULSE 62; RESP 16; TEMP 36.6; O2SAT 99
[2024-12-28] MEDS: buPROPion HCl XL 150 MG TAB.ER.24H PO (08:22)
[2024-12-28] MEDS: 0.9 % Sodium Chloride Flush 3 ML SYRINGE IVFLUSH ×3 (08:22→20:15)
--- NOTE | 2024-12-28 09:05 | P.PNIM_ITS ---
Subjective Subjective Date of Service: 12/28/24 Interval History: sore throat, no change in lesions Physical Exam 2 Vital Signs: Vital Signs: Last Vital Signs Temp 97.8 F 12/28/24 07:41 Pulse 62 12/28/24 07:41 Resp 16 12/28/24 07:41 BP 116/62 12/28/24 07:41 Pulse Ox 99 12/28/24 07:41 O2 Del Method Room Air 12/28/24 07:41 BMI result Body Mass Index 26.1 Const: General: cooperative and no acute distress Nutritional Appearance: w ell nourished Orientation/consciousness: patient oriented x3 Limitations: no limitations HEENT: Head: Yes normocephalic and Yes atraumatic Ears: hearing grossly normal bilaterally Resp: Effort & Inspection: normal respiratory effort, no audible wheezes, no cough and no respiratory distress Cardio: Jugular venous distension: no JVD GI: Inspection: Yes normal to inspection Skin: Other: Warm, dry, rash involving the palm and soles, to a lesser degree on abdomen. Neuro: General: patient oriented x3 Extrem: Other: As noted above General: Yes no clubbing, cyanosis or edema Objective Data Active Medications Acetaminophen (Acetaminophen 325 Mg Tablet) 975 mg PO Q6H PRN PRN Reason: Pain, Mild 1-3,fever,headache Last Admin: 12/27/24 19:59 Dose: 975 mg Documented By: HARSH Ascorbic Acid (Ascorbic Acid 250 Mg Tablet) 250 mg PO DAILY [facility] Last Admin: 12/28/24 08:22 Dose: 250 mg Documented By: NATALIA Benzocaine (Throat Lozenge, Medicated Lozenge) 1 lozenge MUCOUS MEM Q2H PRN PRN Reason: Sore Throat Last Admin: 12/28/24 01:42 Dose: 1 lozenge Documented By: CHELSIE Bupropion HCl (Bupropion Hcl Xl 150 Mg Tab.Er.24h) 150 mg PO DAILY [facility] Last Admin: 12/28/24 08:22 Dose: 150 mg Documented By: NATALIA Calcium Carbonate (Calcium Carbonate 750 Mg Tab.Chew) 750 mg PO Q4H PRN PRN Reason: Heartburn Diphenhydramine HCl (Diphenhydramine Hcl 50 Mg/Ml Vial) 25 mg IVPUSH Q6H PRN PRN Reason: pruritis Last Admin: 12/28/24 01:42 Dose: 25 mg Documented By: CHELSIE Enoxaparin Sodium (Enoxaparin Sodium 40 Mg/0.4 Ml Syringe) 40 mg SUBCUT Q24H [facility] On Hold: 12/27/24 12:30 Last Admin: 12/26/24 20:13 Dose: Not Given Documented By: ZEB Non-Admin Reason: Patient Refused Magnesium Hydroxide (Milk Of Magnesia 30 Ml Oral.Susp) 30 ml PO DAILY PRN PRN Reason: Constipation Melatonin (Melatonin 3 Mg Tablet) 6 mg PO BEDTIME PRN PRN Reason: Insomnia Last Admin: 12/27/24 22:09 Dose: 6 mg Documented By: HARSH Ondansetron HCl (Ondansetron Hcl 4 Mg/2 Ml Vial) 4 mg IVPUSH Q8H PRN PRN Reason: Nausea and Vomiting Prednisone (Prednisone 20 Mg Tablet) 40 mg PO DAILY [facility] Last Admin: 12/28/24 08:22 Dose: 40 mg Documented By: NATALIA Sodium Chloride (0.9 % Sodium Chloride Flush 3 Ml Syringe) 3 ml IVFLUSH QSHIFT [facility] Last Admin: 12/28/24 08:22 Dose: 3 ml Documented By: NATALIA Labs 12/28/24 06:01 12/28/24 06:01 Labs: Laboratory Results - last 24 hr 12/26/24 12/28/24 09:14 06:01 MCV 82.7 MCH 28.6 MCHC 34.6 RDW 12.6 Plt Count 197 MPV 9.6 Immature Gran % (Auto) 0.3 Neut % (Auto) 58.2 Lymph % (Auto) 32.5 [place] % (Auto) 8.4 Eos % (Auto) 0.3 Baso % (Auto) 0.3 Lymph # (Auto) 1.1 L [place] # (Auto) 0.3 Eos # (Auto) 0.0 Baso # (Auto) 0.0 Abs Immat Gran (auto) 0.01 Absolute Neuts (auto) 1.9 L Absolute Nucleated RBC 0.000 Nucleated RBC % (auto) 0.0 Anion Gap 13 Estim Creat Clear Calc 186.4 Estimated GFR > 60 Random Glucose 128 H Calcium 8.9 D Complement C3 99 Complement C4 16 CMV Qnt PCR IU/mL NOT DETECTED CMV Qnt PCR log IU/mL NOT DETECTED Microbiology Microbiology Results: Microbiology 12/25/24 16:25 Blood Culture - Preliminary Blood - Venous No growth after 48 hours. 12/25/24 16:07 Blood Culture - Preliminary Blood - Venous No growth after 48 hours. Assessment and Plan (1) Fever of unknown origin: Status: Acute Plan 29M PMH possibly malignant thyroid nodule, anxiety, s/p cholecystectomy, recent hospitalization for klebsiella bacteremia presented with recurrent fevers, sore throat, skin lesions, syncope fever of unknown origin holding abx for now afebrile 48 hrs ID appreciated MRCP with possible sludge - plan for ERCP 12/30/24 negative blood cultures Autoimmune work up pending (RF negative, compliment WNL) viral studies with rhinovirus echo normal syncope vasovagal thyroid nodule suspicious for malignancy plan for thyroid lobectomy outpatient dvt prophylaxis- lovenox full code reason for continued hospitalization:fuo work up Quality Stroke Does the patient have a stroke diagnosis?: No VTE Prior VTE?: No VTE Risk Level:: Medical - moderate - high VTE Device Contraindication: Treatment Not Indicated VTE Drug Contraindication: N/A - Med Ordered
[2024-12-28 15:14] VITALS: BP 120/58; PULSE 61; RESP 18; TEMP 36.2; O2SAT 98
[2024-12-28 19:47] VITALS: BP 135/61; PULSE 71; RESP 18; TEMP 36.9; O2SAT 100
[2024-12-29 03:56] VITALS: BP 97/54; PULSE 61; RESP 16; TEMP 36; O2SAT 98
[2024-12-29 08:00] VITALS: BP 134/70; PULSE 59; RESP 17; TEMP 37.1; O2SAT 96
[2024-12-29] MEDS: 0.9 % Sodium Chloride Flush 3 ML SYRINGE IVFLUSH ×2 (08:20→17:34)
[2024-12-29] MEDS: buPROPion HCl XL 150 MG TAB.ER.24H PO (08:20)
--- NOTE | 2024-12-29 08:35 | HO.PM.IMPN ---
Subjective Subjective Date of Service: 12/29/24 Interval History: no more fevers, no change in lesions Physical Exam Vital Signs: Vital Signs: Last Vital Signs Temp 98.7 F 12/29/24 08:00 Pulse 59 12/29/24 08:00 Resp 17 12/29/24 08:00 BP 134/70 12/29/24 08:00 Pulse Ox 96 12/29/24 08:00 O2 Del Method Room Air 12/29/24 08:00 BMI result Body Mass Index 26.1 Const: General: cooperative and no acute distress Nutritional Appearance: well nourished Orientation/consciousness: patient oriented x3 Limitations: no limitations HEENT: Head: Yes normocephalic and Yes atraumatic Ears: hearing grossly normal bilaterally Resp: Effort & Inspection: normal respiratory effort, no audible wheezes, no cough and no respiratory distress Cardio: Jugular venous distension: no JVD GI: Inspection: Yes normal to inspection Skin: Other: Warm, dry, rash involving the palm and soles, to a lesser degree on abdomen. Neuro: General: patient oriented x3 Extrem: Other: As noted above General: Yes no clubbing, cyanosis or edema Objective Data Active Medications Acetaminophen (Acetaminophen 325 Mg Tablet) 975 mg PO Q6H PRN PRN Reason: Pain, Mild 1-3,fever,headache Last Admin: 12/27/24 19:59 Dose: 975 mg Documented By: HARSH Ascorbic Acid (Ascorbic Acid 250 Mg Tablet) 250 mg PO DAILY [facility] Last Admin: 12/29/24 08:19 Dose: 250 mg Documented By: NATALIA Benzocaine (Throat Lozenge, Medicated Lozenge) 1 lozenge MUCOUS MEM Q2H PRN PRN Reason: Sore Throat Last Admin: 12/28/24 16:10 Dose: 1 lozenge Documented By: NATALIA Bupropion HCl (Bupropion Hcl Xl 150 Mg Tab.Er.24h) 150 mg PO DAILY [facility] Last Admin: 12/29/24 08:20 Dose: 150 mg Documented By: NATALIA Calcium Carbonate (Calcium Carbonate 750 Mg Tab.Chew) 750 mg PO Q4H PRN PRN Reason: Heartburn Diphenhydramine HCl (Diphenhydramine Hcl 50 Mg/Ml Vial) 25 mg IVPUSH Q6H PRN PRN Reason: pruritis Last Admin: 12/28/24 20:15 Dose: 25 mg Documented By: JENNIFFER Enoxaparin Sodium (Enoxaparin Sodium 40 Mg/0.4 Ml Syringe) 40 mg SUBCUT Q24H [facility] On Hold: 12/27/24 12:30 Last Admin: 12/26/24 20:13 Dose: Not Given Documented By: ZEB Non-Admin Reason: Patient Refused Magnesium Hydroxide (Milk Of Magnesia 30 Ml Oral.Susp) 30 ml PO DAILY PRN PRN Reason: Constipation Melatonin (Melatonin 3 Mg Tablet) 6 mg PO BEDTIME PRN PRN Reason: Insomnia Last Admin: 12/27/24 22:09 Dose: 6 mg Documented By: HARSH Ondansetron HCl (Ondansetron Hcl 4 Mg/2 Ml Vial) 4 mg IVPUSH Q8H PRN PRN Reason: Nausea and Vomiting Prednisone (Prednisone 20 Mg Tablet) 40 mg PO DAILY [facility] Last Admin: 12/29/24 08:19 Dose: 40 mg Documented By: NATALIA Sodium Chloride (0.9 % Sodium Chloride Flush 3 Ml Syringe) 3 ml IVFLUSH QSHIFT [facility] Last Admin: 12/29/24 08:20 Dose: 3 ml Documented By: NATALIA Labs 12/28/24 06:01 12/28/24 06:01 Assessment and Plan (1) Fever of unknown origin: Status: Acute Plan 29M PMH possibly malignant thyroid nodule, anxiety, s/p cholecystectomy, recent hospitalization for klebsiella bacteremia presented with recurrent fevers, sore throat, skin lesions, syncope fever of unknown origin holding abx afebrile ID appreciated MRCP with possible sludge - plan for ERCP 12/30/24 negative blood cultures Autoimmune work up pending (RF negative, compliment WNL) viral studies with rhinovirus echo normal follow up skin biopsy syncope vasovagal thyroid nodule suspicious for malignancy plan for thyroid lobectomy outpatient dvt prophylaxis- lovenox full code reason for continued hospitalization:fuo work up Quality Stroke Does the patient have a stroke diagnosis?: No VTE Prior VTE?: No VTE Risk Level:: Medical - moderate - high VTE Device Contraindication: Treatment Not Indicated VTE Drug Contraindication: N/A - Med Ordered
[2024-12-29 15:37] VITALS: BP 146/73; PULSE 73; RESP 17; TEMP 37.3; O2SAT 98
[2024-12-29 20:00] VITALS: BP 126/64; PULSE 60; TEMP 36.8; O2SAT 96
[2024-12-30] VITALS (9 sets, daily range): BP systolic 113–136; BP diastolic 57–86; PULSE 56–73; RESP 16–20; TEMP 36.1–36.8; O2SAT 96–98
[2024-12-30 07:10] LABS: INTERNATIONAL NORM RATIO 1.1 (0.9-1.1); Prothrombin Time 12.8 SEC (10.9-12.4)
[2024-12-30 07:35] LABS: Alanine Aminotransferase 17 U/L (0-40); Albumin Level 4.2 g/dL (3.5-5.0); Alkaline Phosphatase 59 U/L (39-117); Aspartate Amino Transferase 17 U/L (5-37); Total Protein 6.8 g/dL (6.5-8.0)
--- NOTE | 2024-12-30 08:49 | P.PNIM_ITS ---
Subjective Subjective Date of Service: 12/30/24 Interval History: no fever, some improvement in lesions Physical Exam 2 Vital Signs: Vital Signs: Last Vital Signs Temp 98.2 F 12/30/24 07:51 Pulse 62 12/30/24 07:51 Resp 18 12/30/24 07:51 BP 113/60 12/30/24 07:51 Pulse Ox 97 12/30/24 07:51 O2 Del Method Room Air 12/30/24 07:51 BMI result Body Mass Index 26.1 Const: General: cooperative and no acute distress Nutritional Appearance: w ell nourished Orientation/consciousness: patient oriented x3 Limitations: no limitations HEENT: Head: Yes normocephalic and Yes atraumatic Ears: hearing grossly normal bilaterally Resp: Effort & Inspection: normal respiratory effort, no audible wheezes, no cough and no respiratory distress Cardio: Jugular venous distension: no JVD GI: Inspection: Yes normal to inspection Skin: Other: Warm, dry, rash involving the palm and soles, to a lesser degree on abdomen. Neuro: General: patient oriented x3 Extrem: Other: As noted above General: Yes no clubbing, cyanosis or edema Objective Data Active Medications Acetaminophen (Acetaminophen 325 Mg Tablet) 975 mg PO Q6H PRN PRN Reason: Pain, Mild 1-3,fever,headache Last Admin: 12/27/24 19:59 Dose: 975 mg Documented By: HARSH Ascorbic Acid (Ascorbic Acid 250 Mg Tablet) 250 mg PO DAILY [facility] Last Admin: 12/29/24 08:19 Dose: 250 mg Documented By: NATALIA Benzocaine (Throat Lozenge, Medicated Lozenge) 1 lozenge MUCOUS MEM Q2H PRN PRN Reason: Sore Throat Last Admin: 12/28/24 16:10 Dose: 1 lozenge Documented By: NATALIA Bupropion HCl (Bupropion Hcl Xl 150 Mg Tab.Er.24h) 150 mg PO DAILY [facility] Last Admin: 12/29/24 08:20 Dose: 150 mg Documented By: NATALIA Calcium Carbonate (Calcium Carbonate 750 Mg Tab.Chew) 750 mg PO Q4H PRN PRN Reason: Heartburn Diphenhydramine HCl (Diphenhydramine Hcl 50 Mg/Ml Vial) 25 mg IVPUSH Q6H PRN PRN Reason: pruritis Last Admin: 12/28/24 20:15 Dose: 25 mg Documented By: JENNIFFER Enoxaparin Sodium (Enoxaparin Sodium 40 Mg/0.4 Ml Syringe) 40 mg SUBCUT Q24H [facility] On Hold: 12/27/24 12:30 Last Admin: 12/26/24 20:13 Dose: Not Given Documented By: ZEB Non-Admin Reason: Patient Refused Levofloxacin (Levaquin) 500 mg in 100 mls @ 100 mls/hr IV PREOP ONE Stop: 12/30/24 09:59 Indomethacin (Indomethacin 50 Mg Supp.Rect) 100 mg MN PREOP ONE Stop: 12/30/24 09:01 Magnesium Hydroxide (Milk Of Magnesia 30 Ml Oral.Susp) 30 ml PO DAILY PRN PRN Reason: Constipation Melatonin (Melatonin 3 Mg Tablet) 6 mg PO BEDTIME PRN PRN Reason: Insomnia Last Admin: 12/27/24 22:09 Dose: 6 mg Documented By: HARSH Ondansetron HCl (Ondansetron Hcl 4 Mg/2 Ml Vial) 4 mg IVPUSH Q8H PRN PRN Reason: Nausea and Vomiting Prednisone (Prednisone 20 Mg Tablet) 40 mg PO DAILY [facility] Last Admin: 12/29/24 08:19 Dose: 40 mg Documented By: NATALIA Sodium Chloride (0.9 % Sodium Chloride Flush 3 Ml Syringe) 3 ml IVFLUSH QSHIFT [facility] Last Admin: 12/29/24 21:52 Dose: Not Given Documented By: GLENN Non-Admin Reason: Previously Administered Labs 12/28/24 06:01 12/28/24 06:01 Labs: Laboratory Results - last 24 hr 12/30/24 05:49 Hold Purple Top SEE NOTE PT 12.8 H INR 1.1 Total Bilirubin 0.6 Direct Bilirubin 0.2 AST 17 ALT 17 Alkaline Phosphatase 59 Total Protein 6.8 Albumin 4.2 Assessment and Plan (1) Fever of unknown origin: Status: Acute Plan 29M PMH possibly malignant thyroid nodule, anxiety, s/p cholecystectomy, recent hospitalization for klebsiella bacteremia presented with recurrent fevers, sore throat, skin lesions, syncope fever of unknown origin holding abx afebrile ID appreciated MRCP with possible sludge - plan for ERCP 12/30/24 negative blood cultures Autoimmune work up pending (RF negative, compliment WNL) viral studies with rhinovirus echo normal follow up skin biopsy syncope vasovagal thyroid nodule suspicious for malignancy plan for thyroid lobectomy outpatient dvt prophylaxis- lovenox full code reason for continued hospitalization:fuo work up Quality Stroke Does the patient have a stroke diagnosis?: No VTE Prior VTE?: No VTE Risk Level:: Medical - moderate - high VTE Device Contraindication: Treatment Not Indicated VTE Drug Contraindication: N/A - Med Ordered
[2024-12-30] MEDS: 0.9 % Sodium Chloride Flush 3 ML SYRINGE IVFLUSH ×2 (09:09→16:12)
[2024-12-30] MEDS: buPROPion HCl XL 150 MG TAB.ER.24H PO (09:10)
--- NOTE | 2024-12-30 12:39 | MHC.CM.PN ---
PER MD ROUNDS, PT WILL HAVE AN ERCP TODAY AND MAY BE ABLE TO DC AFTER DCP: HOME VIA PRIVATE TRANSPORT
--- NOTE | 2024-12-30 15:56 | MHC.SHP ---
Pre-Procedural Eval Section A - 24 Hr Update-Section A only Date of Service: 12/30/24 The patient is an INPATIENT: Yes The patient has been examined within 24 hours of the surgical procedure. The History & Physical has been completed within 30 days and I have reviewed it.: Yes Section B - Complete if H&P > 30 days Chief Complaint: Fever Allergies: Allergies Allergy/AdvReac Type Severity Reaction Status Date / Time No Known Allergies Allergy Verified 12/25/24 15:48 Plan I have reviewed the history and physical and performed a pertinent physical examination on my patient. No changes have occurred unless specified. Time Spent With Patient Time: Total time managing care of this patient today ____ minutes.
--- NOTE | 2024-12-30 15:56 | PM.EVENT ---
Event Note Date of Service: 12/30/24 Event Note: GI-Case reviewed and D/W Dr. Ann. Full consent has been obtained from the patient for the ERCP, including risks of bleeding, perforation, cholangitis, and pancreatitis. Time Spent With Patient Time: Total time managing care of this patient today ____ minutes.
--- NOTE | 2024-12-30 18:31 | HO.ANESPROP2 ---
HPI - Anesthesia Eval Consult details Narrative: Cholelithiasis PMFSH Active Problems Active Problems: All Active Problems Choledocholithiasis (Acute) Fever of unknown origin (Acute) Sepsis (Acute) Fever (Acute) Vitamin D deficiency (Acute) Rash (Acute) Blood culture positive (Acute) Bacteremia (Acute) Thyroid nodule greater than or equal to 1.5 cm in diameter incidentally noted on imaging study (Acute) Past Medical History Medical History Bacteremia Vitamin D deficiency Thyroid nodule greater than or equal to 1.5 cm in diameter incidentally noted on imaging study Functional capacity: independent ambulation Family History Family history of problems with anesthesia: No Surgical History History of Problems with Anesthesia: No Social History Social History Household Members: None Housing: Apartment Do you presently have visiting nurse or other home services: No Patient Tobacco Use Status: Never used Tobacco Smoked in Last 30 Days: No Patient Interested in Nicotine Replacement: No Patient Given Instructions on How to Stop Smoking: No Second Hand Smoke Exposure: No Use of substances other than those prescribed or required for medical reasons: No Currently Displaying Signs/Symptoms of Drug Intoxication Withdrawal: No Have you been hit, kicked, punched, or otherwise hurt by someone within the past year? If so, by whom?: No Do you feel safe in your current relationship?: Yes Is there a partner from a previous relationship who is making you feel unsafe now?: No Are you made to feel afraid or neglected: No Are you DNR?: No Advance Directives: No Advance Directives Information Provided: No Advance Directives on File: No Do you have a plan to hurt others: No Plan Recently lost weight without trying: No Eating poorly because of decreased appetite: No Nutrition Risks: No Nutritional Risk Poor oral hygiene: No service: No Meds Allergies Allergy/AdvReac Type Severity Reaction Status Date / Time No Known Allergies Allergy Verified 12/25/24 15:48 Active Medications: Current Medications Acetaminophen (Acetaminophen 325 Mg Tablet) 975 mg PO Q6H PRN PRN Reason: Pain, Mild 1-3,fever,headache Last Admin: 12/27/24 19:59 Dose: 975 mg Ascorbic Acid (Ascorbic Acid 250 Mg Tablet) 250 mg PO DAILY TOM Last Admin: 12/30/24 09:10 Dose: 250 mg Benzocaine (Throat Lozenge, Medicated Lozenge) 1 lozenge MUCOUS MEM Q2H PRN PRN Reason: Sore Throat Last Admin: 12/28/24 16:10 Dose: 1 lozenge Bupropion HCl (Bupropion Hcl Xl 150 Mg Tab.Er.24h) 150 mg PO DAILY [facility] Last Admin: 12/30/24 09:10 Dose: 150 mg Calcium Carbonate (Calcium Carbonate 750 Mg Tab.Chew) 750 mg PO Q4H PRN PRN Reason: Heartburn Diphenhydramine HCl (Diphenhydramine Hcl 50 Mg/Ml Vial) 25 mg IVPUSH Q6H PRN PRN Reason: pruritis Last Admin: 12/28/24 20:15 Dose: 25 mg Enoxaparin Sodium (Enoxaparin Sodium 40 Mg/0.4 Ml Syringe) 40 mg SUBCUT Q24H [facility] On Hold: 12/27/24 12:30 Last Admin: 12/26/24 20:13 Dose: Not Given Magnesium Hydroxide (Milk Of Magnesia 30 Ml Oral.Susp) 30 ml PO DAILY PRN PRN Reason: Constipation Melatonin (Melatonin 3 Mg Tablet) 6 mg PO BEDTIME PRN PRN Reason: Insomnia Last Admin: 12/27/24 22:09 Dose: 6 mg Ondansetron HCl (Ondansetron Hcl 4 Mg/2 Ml Vial) 4 mg IVPUSH Q8H PRN PRN Reason: Nausea and Vomiting Prednisone (Prednisone 20 Mg Tablet) 40 mg PO DAILY [facility] Last Admin: 12/30/24 09:10 Dose: 40 mg Sodium Chloride (0.9 % Sodium Chloride Flush 3 Ml Syringe) 3 ml IVFLUSH QSHIFT [facility] Last Admin: 12/30/24 16:12 Dose: 3 ml Home Medications ?Medication ?Instructions ?Recorded ?Confirmed ?Last Taken ?Type acetaminophen 650 mg 1,300 mg PO Q4H PRN Headache/Pain 12/09/24 12/25/24 Unknown History tablet,extended release ascorbic acid (vitamin C) 250 mg 250 mg PO DAILY 12/09/24 12/25/24 12/25/24 History tablet (Vitamin C) bupropion HCl 150 mg 24 hr tablet, 150 mg PO DAILY 12/09/24 12/25/24 12/25/24 History extended release ibuprofen 200 mg tablet 400 mg PO Q6H PRN Headache/Pain 12/09/24 12/25/24 12/09/24 History magnesium 250 mg tablet 250 mg PO DAILY 12/09/24 12/25/24 12/25/24 History vitamin B complex 1 tab PO DAILY 12/09/24 12/25/24 12/25/24 History zinc acetate 25 mg (zinc) capsule 25 mg PO DAILY 12/09/24 12/25/24 12/09/24 History cefuroxime axetil 500 mg tablet 500 mg PO BID 12/25/24 12/25/24 12/25/24 History doxycycline monohydrate 100 mg 100 mg PO Q12H 12/25/24 12/25/24 12/25/24 History capsule Exam Height,Weight and Vital Signs: Height 6 ft 5 in Weight 99.79 kg Last Vital Signs Temp 97.7 F 12/30/24 17:59 Pulse 66 12/30/24 17:59 Resp 18 12/30/24 17:59 BP 117/69 12/30/24 17:59 Pulse Ox 96 12/30/24 17:59 O2 Del Method Room Air 12/30/24 17:59 Pertinent Lab Results Pertinent Lab Results: Laboratory Tests 12/25/24 12/25/24 12/25/24 16:06 16:07 16:47 WBC 6.6 RBC 5.10 D Hgb 14.5 D Hct 42.0 D MCV 82.4 MCH 28.4 MCHC 34.5 RDW 12.4 Plt Count 241 D MPV 9.0 L Immature Gran % (Auto) 0.3 Neut % (Auto) 87.5 H Lymph % (Auto) 6.5 L [place] % (Auto) 4.9 Eos % (Auto) 0.3 Baso % (Auto) 0.5 Lymph # (Auto) 0.4 L [place] # (Auto) 0.3 Eos # (Auto) 0.0 Baso # (Auto) 0.0 Abs Immat Gran (auto) 0.02 Absolute Neuts (auto) 5.8 Absolute Nucleated RBC 0.000 Nucleated RBC % (auto) 0.0 ESR 7 Hold Purple Top PT INR Sodium 137 Potassium 3.9 Chloride 102 Carbon Dioxide 27 Anion Gap 12 BUN 13 Creatinine 1.04 Estim Creat Clear Calc 134.4 Estimated GFR > 60 Random Glucose 103 Lactic Acid 1.1 Calcium 9.4 D Iron TIBC % Saturation Unsat Iron Binding Ferritin Total Bilirubin 0.8 Direct Bilirubin AST 19 ALT 24 Alkaline Phosphatase 65 C-Reactive Protein 2.45 H Total Protein 7.6 Albumin 4.9 Lipase 13 Procalcitonin 0.07 Urine Color Urine Appearance Urine pH Ur Specific [place] Urine Protein Urine Glucose (UA) Urine Ketones Urine Blood Urine Nitrite Ur Leukocyte Esterase Urine RBC Urine WBC Ur Squamous Epith Cells Urine Bacteria Hyaline Casts Rheumatoid Factor Complement C3 Complement C4 Respiratory Panel [place] Adenovirus (Rapid PCR) B.pert (TEM-PCR) B.parapertussis DNA PCR C. pneumoniae DNA (PCR) Coronavirus OC43 (PCR) Coronavirus HKU1 (PCR) Coronavirus 229E (PCR) Coronavirus NL63 (PCR) CMV Qnt PCR IU/mL CMV Qnt PCR log IU/mL Monoscreen Human Metapneumovir PCR Influenza A (RT-PCR) Influenza A (H1) PCR Influ A (H1/09) PCR Influenza A (H3) PCR Influenza Type A (PCR) NEGATIVE Influenza B (RT-PCR) Influenza Type B (PCR) NEGATIVE M. pneumoniae (PCR) Parainfluenza 1 (PCR) Parainfluenza 2 (PCR) Parainfluenza 3 (PCR) Parainfluenza 4 (PCR) RSV (PCR) RSV RNA Qual (PCR) NEGATIVE Entero/Rhino (PCR) SARS-CoV-2 RNA (RT-PCR) NEGATIVE S. pyogenes GrpA MARLON Negative 12/25/24 12/25/24 12/26/24 17:34 20:46 05:14 WBC 4.3 L RBC 4.20 L Hgb 11.9 L Hct 35.2 L MCV 83.8 MCH 28.3 MCHC 33.8 RDW 12.6 Plt Count 169 D MPV 9.4 Immature Gran % (Auto) 0.0 Neut % (Auto) 68.2 Lymph % (Auto) 22.5 [place] % (Auto) 8.4 Eos % (Auto) 0.2 Baso % (Auto) 0.7 Lymph # (Auto) 1.0 L [place] # (Auto) 0.4 Eos # (Auto) 0.0 Baso # (Auto) 0.0 Abs Immat Gran (auto) 0.00 Absolute Neuts (auto) 2.9 Absolute Nucleated RBC 0.000 Nucleated RBC % (auto) 0.0 ESR Hold Purple Top PT INR Sodium 139 Potassium 3.7 Chloride 109 H Carbon Dioxide 25 Anion Gap 9 L BUN 8 L Creatinine 0.77 Estim Creat Clear Calc 181.6 Estimated GFR > 60 Random Glucose 97 Lactic Acid Calcium 8.0 L D Iron TIBC % Saturation Unsat Iron Binding Ferritin Total Bilirubin Direct Bilirubin AST ALT Alkaline Phosphatase C-Reactive Protein Total Protein Albumin Lipase Procalcitonin Urine Color Yellow Urine Appearance Clear Urine pH 7.5 Ur Specific [place] 1.015 Urine Protein Negative Urine Glucose (UA) Negative Urine Ketones Negative Urine Blood Negative Urine Nitrite Negative Ur Leukocyte Esterase Negative Urine RBC 0-2 Urine WBC 0-5 Ur Squamous Epith Cells 0-2 Urine Bacteria None Seen Hyaline Casts 0-2 Rheumatoid Factor Complement C3 Complement C4 Respiratory Panel [place] See Note Adenovirus (Rapid PCR) Not Detected B.pert (TEM-PCR) Not Detected B.parapertussis DNA PCR Not Detected C. pneumoniae DNA (PCR) Not Detected Coronavirus OC43 (PCR) Not Detected Coronavirus HKU1 (PCR) Not Detected Coronavirus 229E (PCR) Not Detected Coronavirus NL63 (PCR) Not Detected CMV Qnt PCR IU/mL CMV Qnt PCR log IU/mL Monoscreen Human Metapneumovir PCR Not Detected Influenza A (RT-PCR) Not Detected Influenza A (H1) PCR Not Detected Influ A (H1/09) PCR Not Detected Influenza A (H3) PCR Not Detected Influenza Type A (PCR) Influenza B (RT-PCR) Not Detected Influenza Type B (PCR) M. pneumoniae (PCR) Not Detected Parainfluenza 1 (PCR) Not Detected Parainfluenza 2 (PCR) Not Detected Parainfluenza 3 (PCR) Not Detected Parainfluenza 4 (PCR) Not Detected RSV (PCR) Not Detected RSV RNA Qual (PCR) Entero/Rhino (PCR) Detected A SARS-CoV-2 RNA (RT-PCR) Not Detected S. pyogenes GrpA MAR[place]ON 12/26/24 12/27/24 12/28/24 09:14 06:12 06:01 WBC 3.3 L 3.3 L RBC 4.29 L 4.44 L Hgb 12.5 L 12.7 L Hct 35.5 L 36.7 L MCV 82.8 82.7 MCH 29.1 28.6 MCHC 35.2 34.6 RDW 12.9 12.6 Plt Count 158 L 197 MPV 9.1 L 9.6 Immature Gran % (Auto) 0.3 0.3 Neut % (Auto) 56.1 58.2 Lymph % (Auto) 30.8 32.5 [place] % (Auto) 10.1 8.4 Eos % (Auto) 2.1 0.3 Baso % (Auto) 0.6 0.3 Lymph # (Auto) 1.0 L 1.1 L [place] # (Auto) 0.3 0.3 Eos # (Auto) 0.1 0.0 Baso # (Auto) 0.0 0.0 Abs Immat Gran (auto) 0.01 0.01 Absolute Neuts (auto) 1.8 L 1.9 L Absolute Nucleated RBC 0.000 0.000 Nucleated RBC % (auto) 0.0 0.0 ESR Hold Purple Top PT INR Sodium 142 142 Potassium 3.9 4.0 Chloride 108 106 Carbon Dioxide 25 27 Anion Gap 13 13 BUN 7 L 7 L Creatinine 0.79 0.75 Estim Creat Clear Calc 177.0 186.4 Estimated GFR > 60 > 60 Random Glucose 97 128 H Lactic Acid Calcium 8.0 L 8.9 D Iron 20 L TIBC 222 L % Saturation 9 L Unsat Iron Binding 202 Ferritin 126 Total Bilirubin Direct Bilirubin AST ALT Alkaline Phosphatase C-Reactive Protein Total Protein Albumin Lipase Procalcitonin Urine Color Urine Appearance Urine pH Ur Specific [place] Urine Protein Urine Glucose (UA) Urine Ketones Urine Blood Urine Nitrite Ur Leukocyte Esterase Urine RBC Urine WBC Ur Squamous Epith Cells Urine Bacteria Hyaline Casts Rheumatoid Factor < 13.0 Complement C3 99 Complement C4 16 Respiratory Panel [place] Adenovirus (Rapid PCR) B.pert (TEM-PCR) B.parapertussis DNA PCR C. pneumoniae DNA (PCR) Coronavirus OC43 (PCR) Coronavirus HKU1 (PCR) Coronavirus 229E (PCR) Coronavirus NL63 (PCR) CMV Qnt PCR IU/mL NOT DETECTED CMV Qnt PCR log IU/mL NOT DETECTED Monoscreen Negative Human Metapneumovir PCR Influenza A (RT-PCR) Influenza A (H1) PCR Influ A (H1/09) PCR Influenza A (H3) PCR Influenza Type A (PCR) Influenza B (RT-PCR) Influenza Type B (PCR) M. pneumoniae (PCR) Parainfluenza 1 (PCR) Parainfluenza 2 (PCR) Parainfluenza 3 (PCR) Parainfluenza 4 (PCR) RSV (PCR) RSV RNA Qual (PCR) Entero/Rhino (PCR) SARS-CoV-2 RNA (RT-PCR) S. pyogenes GrpA [facility] 12/30/24 05:49 WBC RBC Hgb Hct MCV MCH MCHC RDW Plt Count MPV Immature Gran % (Auto) Neut % (Auto) Lymph % (Auto) [place] % (Auto) Eos % (Auto) Baso % (Auto) Lymph # (Auto) [place] # (Auto) Eos # (Auto) Baso # (Auto) Abs Immat Gran (auto) Absolute Neuts (auto) Absolute Nucleated RBC Nucleated RBC % (auto) ESR Hold Purple Top SEE NOTE PT 12.8 H INR 1.1 Sodium Potassium Chloride Carbon Dioxide Anion Gap BUN Creatinine Estim Creat Clear Calc Estimated GFR Random Glucose Lactic Acid Calcium Iron TIBC % Saturation Unsat Iron Binding Ferritin Total Bilirubin 0.6 Direct Bilirubin 0.2 AST 17 ALT 17 Alkaline Phosphatase 59 C-Reactive Protein Total Protein 6.8 Albumin 4.2 Lipase Procalcitonin Urine Color Urine Appearance Urine pH Ur Specific [place] Urine Protein Urine Glucose (UA) Urine Ketones Urine Blood Urine Nitrite Ur Leukocyte Esterase Urine RBC Urine WBC Ur Squamous Epith Cells Urine Bacteria Hyaline Casts Rheumatoid Factor Complement C3 Complement C4 Respiratory Panel [place] Adenovirus (Rapid PCR) B.pert (TEM-PCR) B.parapertussis DNA PCR C. pneumoniae DNA (PCR) Coronavirus OC43 (PCR) Coronavirus HKU1 (PCR) Coronavirus 229E (PCR) Coronavirus NL63 (PCR) CMV Qnt PCR IU/mL CMV Qnt PCR log IU/mL Monoscreen Human Metapneumovir PCR Influenza A (RT-PCR) Influenza A (H1) PCR Influ A (H1) PCR Influenza A (H3) PCR Influenza Type A (PCR) Influenza B (RT-PCR) Influenza Type B (PCR) M. pneumoniae (PCR) Parainfluenza 1 (PCR) Parainfluenza 2 (PCR) Parainfluenza 3 (PCR) Parainfluenza 4 (PCR) RSV (PCR) RSV RNA Qual (PCR) Entero/Rhino (PCR) SARS-CoV-2 RNA (RT-PCR) S. pyogenes GrpA [facility] Airway Mallampati Class: II TM Dist: >3cm Neck ROM: Full Loose/Missing/Broken Teeth: No Heart: RRR Lungs: Cta Assessment and Plan Assessment Anesthesia Assessment: Anesthesia Plan Discussed and Chart Reviewed Final Anesthetic Review Family History of Problems with Anesthesia: No History of Problems with Anesthesia: No NPO: Yes ASA Class: I Final Preanesthetic Review: No Changes in Pt Med Stat, Meds/Allgs Chart Reviewed, Consent Obtained/Reviewed and Anes Risks/Benef Reviewed Patient Risk: Low Procedure Risk: Low Anesthetic Plan Anesthetic Plan: GA Disposition: Standard PACU
--- NOTE | 2024-12-30 20:35 | PM.OP ---
Brief Operative Note Date of Service: 12/30/24 Pre-op diagnosis: Choledocholithiasis Post-op diagnosis: same Surgeon: Alessandro Zapata MD Anesthesia: GETA Was an Conditioning Room Worker used for this Procedure?: No Estimated blood loss (mL): 2.0 Pathology: none sent Condition: stable Disposition: PACU
--- NOTE | 2024-12-30 20:36 | PM.EVENT ---
Event Note Date of Service: 12/30/24 Event Note: GI--ERCP with sphincterotomy and removal of multiple CBD stones-Full note dictated Findings: 1. Major papilla anatomy c/w previous sphincterotomy with flow of bile noted 2. Selective cholangiograms revealed multiple filling defects in primarily the extrahepatic bile duct, although with a ? of some in the intrahepatic ducts 3. Extended the sphincterotomy another approx. 6mm 4. Biliary tree swept with 9mm and 12mm balloons, as well as a 2cm 4 wire basket, with multiple stones and fragments pulled into the duodenum---excellent flow of bile and contrast noted--no purulence 5. F/U cholangiograms did not reveal any further definitive filling defects Imp: Choledocholithiasis Rec: Observe, F/U labs in the AM, NPO overnight but advance diet in AM if stable and comfortable. I won't be surprised if there is a bump in the LFT's noted in the morning due to all the manipulation this evening. D/W patient and his in detail. Advised them that these findings would account for the recent Klebsiella bacteremia. Thanks Time Spent With Patient Time: Total time managing care of this patient today ____ minutes.
--- NOTE | 2024-12-30 22:44 | OP_ITS ---
DATE OF SERVICE: 12/30/2024 SURGEON: Alessandro Zapata MD INDICATIONS: The patient presents for evaluation of recent Klebsiella bacteremia and abnormal MRCP. Full consent has been obtained from him for this, including risks of bleeding, perforation, cholangitis, and pancreatitis. PREOPERATIVE DIAGNOSIS: Choledocholithiasis. POSTOPERATIVE DIAGNOSIS: Choledocholithiasis. PROCEDURE PERFORMED: ERCP with sphincterotomy and removal of multiple common duct stones. ESTIMATED BLOOD LOSS: COMPLICATIONS: ANESTHESIA: Medication used, general anesthesia. The patient received 100 mg indomethacin suppository and IV Levaquin preoperatively. ASSISTANTS: SPECIMENS: DESCRIPTION OF PROCEDURE: The patient was placed in the semiprone position. The Karaz video duodenoscope was passed in the posterior oropharynx and upper esophagus. The scope entered the stomach and was advanced to the pylorus. The duodenum was cannulated to the descending portion. The major papilla was visualized with anatomy consistent with his previous sphincterotomy. There was good flow of bile noted. A selective and easy cannulation of the biliary tree was obtained with the triple lumen wire guided sphincterotome over a straight guidewire. Selective cholangiograms at that point revealed multiple less than 1 cm filling defects primarily in the extrahepatic bile duct, although with some questionable filling defects in the intrahepatic ducts. I extended the sphincterotomy by about 5 or 6 mm over the guidewire without any immediate complication and with excellent flow of bile and contrast noted. There was some spontaneous drainage of small stone fragments. I used a balloon catheter with a 9 mm and 12 mm balloon inflation to sweep the duct numerous times with removal of at least 6 to 8 stones and stone fragments. I also used a 2 cm 4 wire basket to sweep the duct several times, but no further stones came out. Followup cholangiograms with the balloon catheter both inflated and deflated did not reveal any further definitive filling defects, although at times, I felt there may have been a stone in the right hepatic duct, but at times, this would disappear. The duct was swept and the balloon pulled into the duodenum in the fully inflated position with no further stones noted on cholangiograms. The scope was withdrawn back into the stomach with dye and bile aspirated. The scope was withdrawn from the patient. He tolerated the procedure well. He was extubated in the OR and returned to the recovery area in stable condition. IMPRESSION: Choledocholithiasis. PLAN: The patient will be observed overnight. If stable, he can have his diet advanced tomorrow. He should stay off all aspirin, NSAIDs, and other anticoagulants for at least 1 week. If things remain stable as an outpatient, then I do not think any further followup would be needed. If he has recurrent problems with either bacteremia, jaundice, or right upper quadrant pain, we may need to reinvestigate to rule out any residual choledocholithiasis. This has been discussed with him in detail. A voicemail was left for his significant other as well.. MD PORTIA Blanchard/KATALINA / [phone] MTDAngelica
[2024-12-30 23:18] LABS: Proteinase 3 PR3 Antibodies <1.0 AI
[2024-12-31] MEDS: 0.9 % Sodium Chloride Flush 3 ML SYRINGE IVFLUSH ×2 (00:04→08:32)
[2024-12-31 02:58] VITALS: BP 115/56; PULSE 54; RESP 16; TEMP 36; O2SAT 98
[2024-12-31 05:38] LABS: Hematocrit 36.3 % (42.0-52.0); Hemoglobin 13.2 g/dl (14.0-18.0); Imm Gran Abs Auto 0.02 X10*3/uL (0.00-0.03); Imm Gran Pct Auto 0.3 % (0.0-0.4); Lymphocytes Absolute Auto 1.5 X10*3/uL (1.2-4.9); MANUAL DIFF FLAG SCAN; Mean Corpuscular HGB Conc 36.4 g/dl (31.0-36.0); Mean Corpuscular Hemoglobin 29.0 pg (27.0-33.0); Mean Corpuscular Volume 79.8 fL (80.0-98.0); NRBC Abs Auto 0.000 X10*3/uL (0.0-0.012); NRBC Pct Auto 0.0 /100WBC (0.0-0.2); Platelet Count 199 X10*3/uL (160-400); Red Blood Count 4.55 X10*6/uL (4.60-5.80); SCAN SMEAR FLAG 1; White Blood Count 6.8 X10*3/uL (4.8-10.8)
[2024-12-31 06:01] LABS: Alanine Aminotransferase 201 U/L (0-40); Albumin Level 4.1 g/dL (3.5-5.0); Alkaline Phosphatase 129 U/L (39-117); Anion Gap 12 (12-20); Aspartate Amino Transferase 250 U/L (5-37); Blood Urea Nitrogen 17 mg/dL (9-16); Calcium 8.6 mg/dL (8.4-10.2); Carbon Dioxide 30 mmol/L (22-29); Chloride 103 mmol/L (96-108); Creatinine Clr Calc Pharmacy 172.6; Estimated Glomerular Filt Rate > 60; Potassium 3.6 mmol/L (3.3-5.1); Sodium 141 mmol/L (135-145); Total Protein 6.8 g/dL (6.5-8.0)
[2024-12-31] MEDS: buPROPion HCl XL 150 MG TAB.ER.24H PO (08:32)
--- NOTE | 2024-12-31 08:54 | HO.POSTANES ---
Post Anesthesia Evaluation Post Anesthesia Evaluation Date of Service: 12/31/24 Vital Signs: Vital Signs Temp Pulse Resp BP Pulse Ox O2 Del Method 12/31/24 02:58 96.8 F 54 16 115/56 L 98 Room Air Anesthesia: General Endotracheal-GETA Mental Status: Awake Pain Control: Satisfactory Nausea/Vomiting: None Hydration: Adequate Anesthesia-Related Issues: No Anes. Related Issues
--- NOTE | 2024-12-31 10:18 | P.DS_ITS ---
DS: Providers Provider Date of Service: 12/31/24 Date of admission: 12/26/24 13:45 Date of discharge: 12/31/24 Primary care physician: Sandra Holley NP Consults: 12/25/24 20:25 Consult to Infectious Diseases Routine Consulting Provider: [facility] Reason for consultation: recent bacteremia, recurrent FUO Has provider been notified: Yes 12/26/24 13:41 Consult to Gastroenterology Routine Consulting Provider: [facility] Gastroenterology Services Reason for consultation: hepatosplenomegaly, mrcp with question of cbd stones, ?significance 12/27/24 02:08 Consult to Wound Care Routine Reason for consultation: rash/red/blister facial/hands/leg/genital 12/27/24 12:30 Consult to General Surgery Routine Consulting Provider: [facility] General Surgeons Reason for consultation: biopsy of skin lesions DS: Diagnosis Discharge Diagnosis (1) Fever of unknown origin: Status: Acute DS: Summary Hospital Course Hospital Course: from initial hpi: 29-year-old male with a past medical history significant for anxiety and recent hospitalization for Klebsiella bacteremia, who returned to the ED today due to fever starting this morning, 102.8 upon arrival. He also had a vagal syncope episode and triage. Heart rate has been elevated up to 150, responsive to IV fluids. Reports that he has been taking his antibiotics prescribed, doxycycline and cefuroxime, however he did miss a few days and reported taking doxycycline this morning. Reports a mild sore throat, mild shortness of breath, dizziness, nausea and headache. He also reports right upper quadrant tingling and states that he has a history of a cholecystectomy. No right upper quadrant pain or any abdominal pain, diarrhea or hematochezia. He denies any urinary symptoms including frequency, urgency or dysuria. During his previous hospitalization he was tested for HIV which was negative as well as tick panel which was also negative. He did recently go hiking in [place] and had oral sex with a new partners and all STI screening was negative. He did previously have a rash on the posterior right leg with a CRP of 16 and mild leukopenia of 3.9, ID suspected possible tick-borne illness, therefore was treated with doxycycline. His A/P CT at that time showed hepatomegaly with steatosis, splenomegaly, mild diffuse bowel wall mural thickening, prominent inguinal nodes. He denies hot flashes, confusion, muscle weakness, or fatigue. hospital course: Patient was admitted with fever of unknown origin. Differential included cholangitis, drug reaction, viral infection. Antibiotics were held. Patient developed rash on palms and soles of feet as well as trunk. This was biopsied and results are inconclusive though did have some eosinophils favoring drug reaction, could not rule out viral exanthem. We will list cefuroxime as possible allergy for now. Rash has improved. No further fevers. , cultures negative. Incidentally noted to have rhino virus with tonsillitis. MRCP with hepatomegaly and possible sludge, ERCP 12/30/2024 with multiple stones which were removed. Echo normal. Autoimmune workup negative, in a still pending though. For suspicion of thyroid cancer plan to follow up for left lobar thyroidectomy. Patient is feeling better and will be discharged home. Time Attestation Discharge Coordination Time (in mins): 33 Quality: Safe Use of Opioids Does Pt have an Active Cancer Diagnosis on the Problem List?: No Quality: Stroke Does the patient have a stroke diagnosis?: No Physical Exam Vital Signs: Vital Signs: Last Vital Signs Temp 96.8 F 12/31/24 02:58 Pulse 54 12/31/24 02:58 Resp 16 12/31/24 02:58 BP 115/56 L 12/31/24 02:58 Pulse Ox 98 12/31/24 02:58 O2 Del Method Room Air 12/31/24 02:58 O2 Flow Rate 6 12/30/24 20:31 BMI result Body Mass Index 26.1 Const: General: cooperative and no acute distress Nutritional Appearance: well nourished Orientation/consciousness: patient oriented x3 Limitations: no limitations HEENT: Head: Yes normocephalic and Yes atraumatic Ears: hearing grossly normal bilaterally Resp: Effort & Inspection: normal respiratory effort, no audible wheezes, no cough and no respiratory distress Cardio: Jugular venous distension: no JVD GI: Inspection: Yes normal to inspection Skin: Other: Warm, dry, rash involving the palm and soles, to a lesser degree on abdomen. Neuro: General: patient oriented x3 Extrem: Other: As noted above General: Yes no clubbing, cyanosis or edema DS: Data Data Completed and Pending Completed studies during hospitalization [Text1]: Pending at discharge 12/27/24 13:08 Surgical Path [Surgical] [PTH] Routine Labs on day of discharge: Laboratory Results - last 24 hr 12/26/24 12/31/24 09:19 05:26 WBC 6.8 RBC 4.55 L Hgb 13.2 L Hct 36.3 L MCV 79.8 L MCH 29.0 MCHC 36.4 H RDW 12.1 Plt Count 199 MPV 9.1 L Immature Gran % (Auto) 0.3 Neut % (Auto) 68.9 Lymph % (Auto) 21.8 [place] % (Auto) 8.1 Eos % (Auto) 0.6 Baso % (Auto) 0.3 Lymph # (Auto) 1.5 [place] # (Auto) 0.6 Eos # (Auto) 0.0 Baso # (Auto) 0.0 Abs Immat Gran (auto) 0.02 Absolute Neuts (auto) 4.7 Absolute Nucleated RBC 0.000 Nucleated RBC % (auto) 0.0 Smear Tech's Comments VERIFIED Sodium 141 Potassium 3.6 Chloride 103 Carbon Dioxide 30 H Anion Gap 12 BUN 17 H Creatinine 0.81 Estim Creat Clear Calc 172.6 Estimated GFR > 60 Fasting Glucose 91 Calcium 8.6 Total Bilirubin 1.7 H Direct Bilirubin 0.9 H AST 250 H ALT 201 H Alkaline Phosphatase 129 H Total Protein 6.8 Albumin 4.1 Proteinase 3 (PR3) Ab <1.0 Myeloperoxidase Ab <1.0 Discharge Plan Discharge Anticipated Discharge Date/Time: 12/31/24 10:16 Patient Disposition: Home, Self-Care Discharge Diagnosis: choledocolithiasis, fever, rash, drug reaction? Referrals: Sandra Holley, [employer]AMS MANAGER [Primary Care Provider, [facility]] - 1 Week Discharge Medications: Continued zinc acetate 25 mg (zinc) Capsule 25 mg PO DAILY acetaminophen 650 mg Tablet Extended Release 1,300 mg PO Q4H PRN (Reason: Headache/Pain) ascorbic acid (vitamin C) [Vitamin C] 250 mg Tablet 250 mg PO DAILY vitamin B complex Tablet 1 tab PO DAILY magnesium 250 mg Tablet 250 mg PO DAILY bupropion HCl 150 mg tablet extended release 24 hr 150 mg PO DAILY Discontinued ibuprofen 200 mg Tablet 400 mg PO Q6H PRN (Reason: Headache/Pain) doxycycline monohydrate 100 mg capsule 100 mg PO Q12H cefuroxime axetil 500 mg tablet 500 mg PO BID Diet: Advance to usual diet Activity on Discharge: As tolerated Stand Alone Forms: Patient Portal Discharge page Print Language: Sinhala Care Plan Goals: recovery Health Concerns: choledocolithiasis, drug reaction Plan of Treatment: monitor off medications Assessment: see above
--- NOTE | 2024-12-31 12:05 | MHC.CM.PN ---
Patient medically cleared for dc home self care via private transport.
[2024-12-31 13:23] LABS: Anti Nuclear Antibody Screen NEGATIVE (NEGATIVE)
--- NOTE | 2024-12-31 13:32 | HO.WOUND ---
Wound Consult - Deferred to Providers 29yr old male admitted to [facility] on 12/26/24 see H&P for detailed history. Currently followed by providers for rash - mildly improving - ID following. There are no open lesions noted. No topical intervention needed from wound care nurse at this time.
== END 2024-12-31 14:44 | disposition home or self-care (01) | DRG 446 ==
LOC: HO.ED 19:49 → HO.EDOVER 19:59 → HO.S3 12-26 08:02
PROVIDERS: Internal Medicine; Physician Assistant; Admitting Provider Internal Medicine; Emergency Provider Emergency Medicine; PCP Nurse Practitioner Family; Visit Provider Internal Medicine
PROC: 0F798ZZ Dilation of Common Bile Duct, Via Natural or Artificial Opening Endoscopic (ICD-10-PCS; CPT 43260; principal; 2024-12-30 18:00)
DX: K80.20 Calculus of gallbladder without cholecystitis without obstruction (principal); F41.9 Anxiety disorder, unspecified; B97.89 Other viral agents as the cause of diseases classified elsewhere; R55 Syncope and collapse; C73 Malignant neoplasm of thyroid gland; L27.0 Generalized skin eruption due to drugs and medicaments taken internally; B09 Unspecified viral infection characterized by skin and mucous membrane lesions; Z20.822 Contact with and (suspected) exposure to COVID-19; Z79.899 Other long term (current) drug therapy
CPT/HCPCS: 36415; 70491; 71045; 71260; 74177; 74181; 80048; 80053; 80076; 81001; 82728; 83540; 83605; 83690; 84145; 85025; 85610; 85652; 86021; 86038; 86140; 86160; 86308; 86431; 87040; 87497; 87633; 87637; 87651; 88304; 88305; 88312; 88313; 93005; 93306; 99285; J0131; J1200; J1610; J1885; J1956; J2003; J2270; J2405; J2704; J3010; J7120; Q9957; Q9967

== ENCOUNTER → 2024-12-25 16:02 | Outpatient (BNV) | payer OTHER, SELFPAY | PROVIDERS: Admitting Provider Internal Medicine; Emergency Provider Emergency Medicine; PCP Nurse Practitioner Family; Visit Provider Internal Medicine Cardiovascular Disease | DX: R50.9 Fever, unspecified (principal) | CPT/HCPCS: 93010 ==

== ENCOUNTER → 2024-12-25 17:02 | Outpatient (BNV) | payer OTHER, SELFPAY | PROVIDERS: Emergency Provider Emergency Medicine; PCP Nurse Practitioner Family; Visit Provider Radiology Diagnostic Radiology | DX: R50.9 Fever, unspecified (principal) | CPT/HCPCS: 71045 ==

== ENCOUNTER 2024-12-25 18:53 | Outpatient (BNV) | payer OTHER, SELFPAY | END 2024-12-26 07:00 | PROVIDERS: Admitting Provider Internal Medicine; Emergency Provider Emergency Medicine; PCP Nurse Practitioner Family; Visit Provider Internal Medicine Cardiovascular Disease | DX: R78.81 Bacteremia (principal) | CPT/HCPCS: 93306 ==

== ENCOUNTER 2024-12-25 18:53 | Outpatient (BNV) | payer OTHER, SELFPAY | END 2024-12-26 10:54 | PROVIDERS: Admitting Provider Internal Medicine; Emergency Provider Emergency Medicine; PCP Nurse Practitioner Family; Visit Provider Radiology Diagnostic Radiology | DX: R16.1 Splenomegaly, not elsewhere classified (principal); K80.51 Calculus of bile duct without cholangitis or cholecystitis with obstruction; J03.90 Acute tonsillitis, unspecified; J98.11 Atelectasis | CPT/HCPCS: 70491; 74181 ==

== ENCOUNTER → 2024-12-25 18:53 | Outpatient (BNV) | payer OTHER, SELFPAY | PROVIDERS: Admitting Provider Internal Medicine; Emergency Provider Emergency Medicine; PCP Nurse Practitioner Family; Visit Provider Internal Medicine Gastroenterology | DX: K80.50 Calculus of bile duct without cholangitis or cholecystitis without obstruction (principal) | CPT/HCPCS: 99222 ==

== ENCOUNTER → 2024-12-25 18:53 | Outpatient (BNV) | payer OTHER, SELFPAY | PROVIDERS: Admitting Provider Internal Medicine; Emergency Provider Emergency Medicine; PCP Nurse Practitioner Family; Visit Provider Internal Medicine | DX: R50.9 Fever, unspecified (principal) | CPT/HCPCS: 99223; 99232 ==

== ENCOUNTER → 2024-12-26 13:45 | Outpatient (BNV) | payer OTHER, SELFPAY | PROVIDERS: Admitting Provider Internal Medicine; Emergency Provider Emergency Medicine; PCP Nurse Practitioner Family; Visit Provider Surgery | DX: R21 Rash and other nonspecific skin eruption (principal) | CPT/HCPCS: 11104; 99222 ==

== ENCOUNTER → 2024-12-26 13:45 | Outpatient (BNV) | payer OTHER, SELFPAY | PROVIDERS: Admitting Provider Internal Medicine; Emergency Provider Emergency Medicine; PCP Nurse Practitioner Family; Visit Provider Internal Medicine | DX: R21 Rash and other nonspecific skin eruption (principal); R50.9 Fever, unspecified | CPT/HCPCS: 99232 ==